=== PATIENT | female | born 1965 | race Caucasian/White ===

== ENCOUNTER → 2016-10-15 | Outpatient (CLI) | payer MEDICARE ==
--- NOTE | 2016-10-16 08:06 | WWHP ---
CHIEF COMPLAINT: Patient is here for her routine gynecologic exam. HPI: This is a 50-year-old G2, P2 with an LMP of 09/16/2016. She is status post tubal ligation. She states she has had very infrequent periods over the last 2 years. Her last prior menstrual period was about 9 months before her LMP. She has not gone for a full 12 months without menses. She has been experiencing hot flashes that are mild for about 4 to 5 months. The patient was found to have varicosity in the inner aspect of the right labia. She states she has not looked at it and it has not caused her any problems. She says her LMP was normal. PAST MEDICAL HISTORY: History of hypertrophic cardiomyopathy with CHF and cardiac arrhythmia, which resulted in the need for cardiac transplant which was done 12/30/2014. Also history of chronic hypertension and pulmonary embolus in the past. MEDICATIONS: 1. Losartan 50 mg b.i.d. 2. Cozaar 1 daily. 3. Ecotrin 81 mg daily. 4. Pravastatin 20 mg daily. 5. Prograf 4 mg p.o. b.i.d. 6. Vitamin C 500 mg b.i.d. 7. Citracal with vitamin D and magnesium 250 mg daily. 8. Ferrous sulfate 325 mg b.i.d. 9. Cardizem CD 120 mg daily. 10. Vitamin E 400 units b.i.d., 11. Magnesium oxide 400 mg daily. 12. Klor-Con 20 mEq daily. ALLERGIES TO PENICILLIN, SULFA, DEMEROL AND CERTAIN ADHESIVE TAPES. PAST SURGICAL HISTORY: Tubal ligation, pacemaker was placed and later removed. A cardiac transplant in 2014. Right breast biopsy 2013, which was benign. Laparotomy for gallbladder problems 2014 and laparotomy for cholecystectomy in 2015. Cold knife conization of the cervix in 1992. 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 She has no history of STDs. SOCIAL HISTORY: She denies tobacco and drug use and previously drank alcohol socially, but stopped drinking alcohol in approximately 2009. She has been since 1989 and is considered disabled. FAMILY HISTORY: Maternal grandfather had CHF. REVIEW OF SYSTEMS: She has gained about 15 pounds over the last year. She denies respiratory, cardiac, or GI problems. PHYSICAL EXAM: Blood pressure 136/97. Height 5 feet 4 inches. Weight 202 pounds. Temperature 98.2, pulse 94. This a well-developed well-nourished white female who is alert and oriented x3 in no acute distress. HEENT is within normal limits. NECK: Supple without mass or thyromegaly. CHEST AND LUNGS: Clear to auscultation. HEART: Regular rate and rhythm. Breasts are without mass or discharge. Axillary exam is negative for adenopathy. BACK: Negative for CVA tenderness. ABDOMEN: Soft, nontender, without palpable masses. There is a well-healed vertical laparotomy scar. PELVIC EXAM: External genitalia appears normal without lesions. Just inside the introitus on the vaginal mucosa approximately at the 8 o'clock position there are findings consistent with her 2016 annual exam. This appears to be small varicosity which measures approximately 8 x 5 mm. They have purplish appearance. They appear benign and they are soft and are nontender. The shape is similar to BB pellets adjacent to each other. They do jorge slightly with pressure but do not completely decompressed. This seems stable from her previous exam. The rest of the vagina appears normal with no lesions. The cervix appears normal. There is no evidence of prolapse and there is no unusual discharge. Bimanual exam: The uterus is midposition, nongravid size and nontender. There are no palpable adnexal masses or tenderness. Rectovaginal exam is negative for mass or tenderness and is negative for occult blood. EXTREMITIES: Nontender. IMPRESSION: 1. A 50-year-old perimenopausal female with oligomenorrhea and mild vasomotor symptoms. 2. Benign-appearing vaginal varicosity just inside the introitus at approximately the 8 o'clock position measuring just under 1 cm. This appears stable from her previous exam. PLAN: 1. Pap smear was deferred, since she had a normal one in 2016. 2. Self breast examination was discussed. 3. Mammogram will be 2017 and a slip was given to patient for this. 4. I have recommended that the patient visualize the varicosity that we have talked about and to feel this so she can examine herself on a regular basis. She was instructed to call if she notices changes. I have recommended that she return for recheck in six months. 5. She will also return in one year for her annual exam.
== END | disposition home or self-care (01) ==

== ENCOUNTER → 2016-10-17 | Outpatient (CLI) | payer MEDICARE ==
[2016-10-17 14:32] LABS: Basophils % (A) 1 %; CH 29.8; CHCM 34.4; Eosinophils # (A) 0.1 k/uL (0-0.7); Eosinophils % (A) 4 %; HCT 40.1 % (34.0-46.0); HDW 2.83; HGB 13.3 gm/dL (11.4-16.0); Luc # (Auto) 0.14; Luc % (Auto) 4; Lymphocytes # (A) 0.8 k/uL (1.0-4.8); Lymphocytes % (A) 22 %; MCH 28.9 pg (25.0-35.0); MCHC 33.2 g/dL (31.0-37.0); Mean Platelet Volume 7.4; Monocytes # (A) 0.4 k/uL (0-1.0); Monocytes % (A) 11 %; Neutrophils # (A) 2.2 k/uL (1.3-7.7); Neutrophils % (A) 59 %; RBC 4.61 m/uL (3.80-5.40); RDW 12.5 % (11.5-15.5); WBC 3.8 k/uL (3.8-10.6)
[2016-10-17 14:50] LABS: Anion Gap 14 mmol/L; Blood Urea Nitrogen 19 mg/dL (7-17); Calcium 9.4 mg/dL (8.4-10.2); Carbon Dioxide 24 mmol/L (22-30); Chloride 105 mmol/L (98-107); Glucose 98 mg/dL (74-99); Non-African American GFR(MDRD) 44 (>60 ml/min/1.73 sqM); Potassium 5.1 mmol/L (3.5-5.1); Sodium 143 mmol/L (137-145)
== END | disposition home or self-care (01) ==
LOC: LABWHC1 13:39
PROVIDERS: ATTEND Internal Medicine
DX: I50.30 Unspecified diastolic (congestive) heart failure (principal); E78.2 Mixed hyperlipidemia; T86.290 Cardiac allograft vasculopathy; T86.23 Heart transplant infection; T86.22 Heart transplant failure; T86.21 Heart transplant rejection; T86.20 Unspecified complication of heart transplant; Z94.1 Heart transplant status
CPT/HCPCS: 36415; 80048; 85025

== ENCOUNTER → 2016-11-18 | Outpatient (CLI) | payer MEDICARE ==
--- NOTE | 2016-11-19 12:04 | MM ---
Reason for exam: screening (asymptomatic). Last mammogram was performed 1 year ago. History: Benign MG stereo VAD BX RT of the right breast, May 31, 2014. Physical Findings: A clinical breast exam by your physician is recommended on an annual basis and results should be correlated with mammographic findings. MG 3D Screening Mammo W/Cad Bilateral CC and MLO view(s) were taken. Prior study comparison: November 14, 2015, bilateral MG 3d diag mammo w/cad [facility]. May 31, 2014, right breast US breast RT. May 16, 2014, bilateral MG screening mammo w CAD. June 29, 2012, CAD bilateral diagnostic mammogram. June 21, 2011, bilateral digital screening mammo w/CAD. The breast tissue is heterogeneously dense. This may lower the sensitivity of mammography. Extensive regional calcification in the right breast unchanged from 05/16/14. No significant changes when compared with prior studies. ASSESSMENT: Negative, BI-RAD 1 RECOMMENDATION: Routine screening mammogram of both breasts in 1 year.
== END | disposition home or self-care (01) ==
LOC: RADMAMWWP 13:59
PROVIDERS: ATTEND Obstetrics & Gynecology
DX: Z12.31 Encounter for screening mammogram for malignant neoplasm of breast (principal)
CPT/HCPCS: 77063; G0202

== ENCOUNTER → 2016-12-11 | Outpatient (CLI) | payer MEDICARE ==
[2016-12-11 10:37] LABS: Basophils # (A) 0.1 k/uL (0-0.2); Basophils % (A) 1 %; CH 29.3; CHCM 33.4; Eosinophils # (A) 0.3 k/uL (0-0.7); Eosinophils % (A) 5 %; HCT 39.9 % (34.0-46.0); HDW 2.72; Luc # (Auto) 0.16; Luc % (Auto) 3; Lymphocytes # (A) 1.3 k/uL (1.0-4.8); Lymphocytes % (A) 21 %; MCH 28.7 pg (25.0-35.0); MCHC 32.5 g/dL (31.0-37.0); MCV 88.1 fL (80.0-100.0); Mean Platelet Volume 7.9; Monocytes # (A) 0.5 k/uL (0-1.0); Monocytes % (A) 8 %; Neutrophils % (A) 64 %; RBC 4.53 m/uL (3.80-5.40); WBC 6.3 k/uL (3.8-10.6); WBC (Perox) 6.76
[2016-12-11 10:51] LABS: Calcium 9.4 mg/dL (8.4-10.2); Potassium 5.3 mmol/L (3.5-5.1)
== END | disposition home or self-care (01) ==
LOC: LABWHC1 09:47
PROVIDERS: ATTEND Internal Medicine
DX: I50.30 Unspecified diastolic (congestive) heart failure (principal); E78.2 Mixed hyperlipidemia; Z94.1 Heart transplant status; T86.21 Heart transplant rejection; T86.22 Heart transplant failure; T86.23 Heart transplant infection; T86.290 Cardiac allograft vasculopathy
CPT/HCPCS: 36415; 80048; 80197; 85025

== ENCOUNTER → 2017-03-07 | Outpatient (CLI) | payer MEDICARE ==
[2017-03-11 07:49] LABS: Mis test requested (Blood) B-type Natriuretic P
== END | disposition home or self-care (01) ==
LOC: LABWHC1 14:55
PROVIDERS: ATTEND Internal Medicine
DX: Z53.9 Procedure and treatment not carried out, unspecified reason (principal)
CPT/HCPCS: 83880

== ENCOUNTER → 2017-05-12 | Outpatient (CLI) | payer MEDICARE ==
[2017-05-12 12:54] LABS: ALT 34 U/L (9-52); AST 27 U/L (14-36); Alkaline Phosphatase 84 U/L (38-126); Anion Gap 11 mmol/L; Blood Urea Nitrogen 22 mg/dL (7-17); Calcium 9.5 mg/dL (8.4-10.2); Carbon Dioxide 24 mmol/L (22-30); Chloride 105 mmol/L (98-107); Creatine Kinase 57 U/L (30-135); Glucose 95 mg/dL (74-99); Magnesium 1.4 mg/dL (1.6-2.3); Non-African American GFR(MDRD) 41 (>60 ml/min/1.73 sqM); Potassium 5.4 mmol/L (3.5-5.1); Sodium 140 mmol/L (137-145); Total Bilirubin 0.6 mg/dL (0.2-1.3); Total Protein 7.4 g/dL (6.3-8.2)
[2017-05-12 13:01] LABS: Basophils # (A) 0.1 k/uL (0-0.2); Basophils % (A) 1 %; CH 29.2; CHCM 33.8; Eosinophils # (A) 0.2 k/uL (0-0.7); Eosinophils % (A) 3 %; HCT 40.9 % (34.0-46.0); HGB 13.7 gm/dL (11.4-16.0); Luc % (Auto) 2; Lymphocytes # (A) 1.2 k/uL (1.0-4.8); Lymphocytes % (A) 22 %; MCHC 33.4 g/dL (31.0-37.0); MCV 86.8 fL (80.0-100.0); Monocytes # (A) 0.4 k/uL (0-1.0); Monocytes % (A) 7 %; Neutrophils # (A) 3.5 k/uL (1.3-7.7); Neutrophils % (A) 66 %; RBC 4.72 m/uL (3.80-5.40); RDW 13.6 % (11.5-15.5); WBC 5.3 k/uL (3.8-10.6); WBC (Perox) 5.75
== END | disposition home or self-care (01) ==
LOC: LABWHC1 12:04
PROVIDERS: ATTEND Internal Medicine
DX: E78.2 Mixed hyperlipidemia (principal); I50.30 Unspecified diastolic (congestive) heart failure; T86.20 Unspecified complication of heart transplant; T86.21 Heart transplant rejection; T86.22 Heart transplant failure; T86.23 Heart transplant infection; T86.290 Cardiac allograft vasculopathy; Z94.1 Heart transplant status
CPT/HCPCS: 36415; 80053; 82550; 83735; 83880; 85025

== ENCOUNTER → 2017-05-16 | Outpatient (CLI) | payer MEDICARE ==
--- NOTE | 2017-05-16 13:44 | US ---
EXAMINATION TYPE: US venous doppler duplex UE RT DATE OF EXAM: 05/16/2017 COMPARISON: NONE CLINICAL HISTORY: Pain in Swelling M79.609. shooting pain right lower arm post blood draw on Friday. SIDE PERFORMED: Right No evidence for Dvt right arm. Grayscale, color doppler, spectral doppler imaging performed of the de ep veins of the upper extremities. There is normal flow, compressibility and vascular waveforms Right Arm: Negative for DVT IMPRESSION: No evidence of deep vein thrombosis within the right upper extremity. .
== END | disposition home or self-care (01) ==
LOC: RADUSWWP 12:54
PROVIDERS: ATTEND Internal Medicine
DX: M79.601 Pain in right arm (principal)

== ENCOUNTER → 2017-07-17 | Outpatient (CLI) | payer MEDICARE ==
[2017-07-17 12:29] LABS: Basophils % (A) 1 %; CH 28.7; CHCM 32.3; Eosinophils # (A) 0.2 k/uL (0-0.7); Eosinophils % (A) 3 %; HCT 41.1 % (34.0-46.0); HDW 2.52; HGB 13.6 gm/dL (11.4-16.0); Luc # (Auto) 0.09; Luc % (Auto) 2; Lymphocytes # (A) 0.9 k/uL (1.0-4.8); Lymphocytes % (A) 18 %; MCH 29.5 pg (25.0-35.0); MCV 89.5 fL (80.0-100.0); Mean Platelet Volume 7.5; Monocytes # (A) 0.4 k/uL (0-1.0); Monocytes % (A) 7 %; Neutrophils # (A) 3.3 k/uL (1.3-7.7); Neutrophils % (A) 69 %; WBC 4.8 k/uL (3.8-10.6); WBC (Perox) 5.32
[2017-07-17 12:49] LABS: ALT 30 U/L (9-52); AST 26 U/L (14-36); Alkaline Phosphatase 73 U/L (38-126); Anion Gap 10 mmol/L; Blood Urea Nitrogen 22 mg/dL (7-17); Calcium 9.5 mg/dL (8.4-10.2); Carbon Dioxide 24 mmol/L (22-30); Chloride 107 mmol/L (98-107); Creatine Kinase 58 U/L (30-135); Glucose 96 mg/dL (74-99); Magnesium 1.4 mg/dL (1.6-2.3); Non-African American GFR(MDRD) 42 (>60 ml/min/1.73 sqM); Potassium 5.5 mmol/L (3.5-5.1); Sodium 141 mmol/L (137-145); Total Bilirubin 0.6 mg/dL (0.2-1.3); Total Protein 7.3 g/dL (6.3-8.2)
[2017-07-21 09:17] LABS: Mis test requested (Blood) BNP
== END | disposition home or self-care (01) ==
LOC: LABWHC1 11:40
PROVIDERS: ATTEND Internal Medicine
DX: E78.2 Mixed hyperlipidemia (principal); I50.30 Unspecified diastolic (congestive) heart failure; T86.21 Heart transplant rejection; T86.22 Heart transplant failure; T86.23 Heart transplant infection; T86.290 Cardiac allograft vasculopathy; Z94.1 Heart transplant status
CPT/HCPCS: 36415; 80053; 82550; 83735; 83880; 85025

== ENCOUNTER 2017-11-07 18:36 | Emergency (ER) | payer MEDICARE ==
[2017-11-07 18:41] VITALS: RESP 16
--- NOTE | 2017-11-07 19:22 | ED ---
General Adult HPI - General Chief complaint: Shortness of Breath Stated complaint: Left side pain Time Seen by Provider: 11/07/17 18:56 Source: patient, family, RN notes reviewed, old records reviewed Mode of arrival: ambulatory Limitations: no limitations - History of Present Illness Initial comments: Chief complaint and history of present illness this is a 51-year-old female here with a complaint of discomfort to her left lower rib cage. She's been coughing quite a bit for the last 10 days. It also hurts to push on the same area. When she takes deep breath it hurts. When she splints the area she can control the pain. Recently the patient was treated with 7 days of azithromycin. She was tested positive for flu be 10 days ago that time she returned had the flu for 4 days so she was put on a Zithromax and 500 mg daily for a week. The patient is a heart transplant patient. Patient denies any fever. She does a productive cough at this time green in color. - Related Data Home Medications Medication Instructions Recorded Confirmed Magnesium Oxide [Mag-Ox] 800 mg PO BID 09/06/14 11/07/17 Ascorbic Acid [Vitamin C] 500 mg PO BID 05/09/15 11/07/17 Aspirin EC [Ecotrin Low Dose] 81 mg PO DAILY 05/09/15 11/07/17 Vitamin E (Dl,Tocopheryl Acet) 400 unit PO BID 05/09/15 11/07/17 [Vitamin E] Losartan [Cozaar] 50 mg PO HS 10/26/15 11/07/17 Tacrolimus [Prograf] 4 mg PO DAILY 10/26/15 11/07/17 Calcium Citrate/Vitamin D3 1 tab PO AC-TID 11/07/17 11/07/17 [Calcitrate + Vit D Caplet] Mycophenolate Mofetil [Cellcept] 500 mg PO BID 11/07/17 11/07/17 Pravastatin Sodium [Pravachol] 20 mg PO HS 11/07/17 11/07/17 Tacrolimus [Prograf] 3 mg PO HS 11/07/17 11/07/17 Allergies Allergy/AdvReac Type Severity Reaction Status Date / Time adhesive Allergy Rash/Hives Verified 11/07/17 19:02 meperidine HCl [From Demerol] Allergy Rash/Hives Verified 11/07/17 19:02 Penicillins Allergy Rash/Hives Verified 11/07/17 19:02 Sulfa (Sulfonamide Allergy Rash/Hives Verified 11/07/17 19:02 Antibiotics) Review of Systems ROS Statement: Those systems with pertinent positive or pertinent negative responses have been documented in the HPI. review of systems no headache or visual acuity changes no neck ache. No shortness of breath except when coughing. Coughing has increased discomfort and appears to be more costochondritis and even pleurisy. She does have a productive cough greenish in color. Denies fever at home. No abdominal pain. No neuro deficits all systems are reviewed.Past medical problems heart disease , DVT, hyperlipidemia, osteoarthritis, pneumonia, PE. Surgeries include heart transplant after multiple procedures on her heart. She's also had cholecystectomy. Family history no cancers. She has ALLERGIES to adhesive, Demerol, penicillins and sulfa. Nonsmoker nondrinker. ROS Other: All systems not noted in ROS Statement are negative. Past Medical History Past Medical History: Chest Pain / Angina, Heart Failure, Deep Vein Thrombosis ( DVT), Hyperlipidemia, Osteoarthritis (OA), Pneumonia, Pulmonary Embolus (PE) Additional Past Medical History / Comment(s): 05-09-15 ADMITTED TO [facility] WITH CHEST PAIN NEAR SYNCOPAL EPISODE.OTHER HX: 1991 HAD OVERACTIVE THYROID TOOK MEDS X1 YEAR THEN DISCONTINUED, , ANEMIA IN PAST, past hx listed mi-pt unaware of this. past afib per old hx before heart transplant, Last Myocardial Infarction Date:: 04/2014 History of Any Multi-Drug Resistant Organisms: None Reported Past Surgical History: Ablation, Cardiac Ablation, Heart Catheterization, Tubal Ligation Additional Past Surgical History / Comment(s): 2008 HAS EP STUDIES,CARDAIC ABLATION 1999, had pacemeaker/defibrilator but that was removed when pt had heart transplant ,CRYOTHERAPY SX FOR HIGH GRADE CELLS (CERVICAL), S/P ICD ; Heart Transplant 12/2014 Past Anesthesia/Blood Transfusion Reactions: Motion Sickness, Postoperative Nausea & Vomiting (PONV) Type of Cardiac Device: Permanent Pacemaker, AICD Device Placement Date:: January 13 2014 Past Psychological History: No Psychological Hx Reported Smoking Status: Never smoker Past Alcohol Use History: None Reported Past Drug Use History: None Reported - Past Family History Father History Unknown: Yes Mother Family Medical History: Deep Vein Thrombosis (DVT) General Exam - General Exam Comments Initial Comments: General: The patient is awake and alert, in no distress, and does not appear acutely ill. here because she has discomfort when she takes a deep breath or cough to her left lower anterior rib cage. She can splint the area and control of discomfort. Vital signs show temperature 98.1 pulse 64 respiratory rate 16 pulse ox 99% room air blood pressure 143/90 Eye: Pupils are equal, round and reactive to light, extra-ocular movements are intact ; there is normal conjunctiva bilaterally. No signs of icterus. Ears, nose, mouth and throat: There are moist mucous membranes and no oral lesions. Neck: The neck is supple, there is no tenderness him a no anterior cervical lymphadenopathy, thyroid not enlarged. Cardiovascular: There is a regular rate and rhythm. No murmur, rub or gallop is appreciated. Respiratory: Lungs are clear to auscultation, respirations are non-labored, breath sounds are equal. No wheezes, stridor, rales, or rhonchi.pain can be increased with coughing. To the left lower anterior chest wall. Palpation over the area causes pain as well. Deep breathing with movement of the chest wall causes discomfort. She can splint the area and the pain can be controlled. No rashes noted we did discuss early shingles. Gastrointestinal: Soft, non-distended, non-tender abdomen without masses or organomegaly noted. There is no rebound or guarding present. No CVA tenderness. Bowel sounds are unremarkable. Back: There is no tenderness to palpation in the midline. There is no obvious deformity. No rashes noted. early shingles was discussed. was instructed to wear to watch for rash. Musculoskeletal: Normal ROM, no tenderness, There is no pedal edema. There is no calf tenderness or swelling. Neurological: no neuro deficits Skin: Skin is warm and dry and no rashes or lesions are noted. Limitations: no limitations Course Vital Signs 11/07/17 18:37 Temperature 98.1 F Pulse Rate 64 Respiratory 16 Rate Blood Pressure 143/90 O2 Sat by Pulse 99 Oximetry Medical Decision Making - Medical Decision Making Medical decision making; a 51-year-old female with complaint of costochondritis possible pleuritic pain. She does have a past history of a heart transplant 3 years ago. Tthe patient was recently tested positive for the flu but she had the symptoms for over 4 days so the Tamiflu was not administered but she was put on a Zithromax and 500 mg daily for 7 days. She's recently finished that. She has had some coughing green phlegm in color. He complains of musculoskeletal discomfort with coughing. Afebrile no other complaints. Labs show white count 6.1 hemoglobin 12 hematocrit of 35 with a potassium 5.2 which is chronically mildly elevated. She's also had chronically poor renal function today her BUN is 44 creatinine 1.6 GFR 34. This is mildly worse than it was several weeks ago. these problems have been chronic. Troponin less than 0.012 S x-ray was done and reviewed radiologist his impression is sternal sutures are noted and mediastinal clips. The cardiac silhouette is not enlarged. The mediastinum pleural silhouettes are unremarkable. The lungs are clear. Pleural spaces are negative. The skeletal structures are intact without focal findings. Soft tissues are unremarkable. Impression no acute process. As read by Dr. Master Mendez appears though the patient has more costochondritis. With chronic renal insufficiency. The patient will be advised to take extra strength Tylenol and splint the area. Advised follow-up with family physician return emergency room as needed. - Lab Data Result diagrams: 11/07/17 19:41 11/07/17 19:41 Lab Results 11/07/17 11/07/17 11/07/17 Range/Units 19:41 19:41 19:41 WBC 6.1 (3.8-10.6) k/uL RBC 4.16 (3.80-5.40) m/uL Hgb 12.2 (11.4-16.0) gm/dL Hct 35.1 (34.0-46.0) % MCV 84.4 (80.0-100.0) fL MCH 29.3 (25.0-35.0) pg MCHC 34.7 (31.0-37.0) g/dL RDW 13.6 (11.5-15.5) % Plt Count 201 (150-450) k/uL Neutrophils % 63 % Lymphocytes % 22 % Monocytes % 8 % Eosinophils % 4 % Basophils % 1 % Neutrophils # 3.8 (1.3-7.7) k/uL Lymphocytes # 1.3 (1.0-4.8) k/uL Monocytes # 0.5 (0-1.0) k/uL Eosinophils # 0.2 (0-0.7) k/uL Basophils # 0.0 (0-0.2) k/uL Sodium 139 (137-145) mmol/L Potassium 5.2 H (3.5-5.1) mmol/L Chloride 105 (98-107) mmol/L Carbon Dioxide 24 (22-30) mmol/L Anion Gap 10 mmol/L BUN 44 H (7-17) mg/dL Creatinine 1.60 H (0.52-1.04) mg/dL Est GFR (MDRD) Af Amer 41 (>60 ml/min/1.73 sqM) Est GFR (MDRD) Non-Af 34 (>60 ml/min/1.73 sqM) Glucose 98 (74-99) mg/dL Calcium 9.5 (8.4-10.2) mg/dL Total Bilirubin 0.4 (0.2-1.3) mg/dL AST 27 (14-36) U/L ALT 25 (9-52) U/L Alkaline Phosphatase 60 (38-126) U/L Troponin I <0.012 (0.000-0.034) ng/mL Total Protein 6.8 (6.3-8.2) g/dL Albumin 4.0 (3.5-5.0) g/dL Disposition Clinical Impression: Costochondritis Disposition: HOME SELF-CARE Condition: Fair Additional Instructions: take extra strength Tylenol for the aches and pains of your chest wall. Use your hand or firm pillow over the area of discomfort to splint the area to prevent discomfort. Follow-up with family physician concerning kidney function. Referrals: Azucena Liang MD [Primary Care Provider] - 1-2 days Time of Disposition: 20:54
--- NOTE | 2017-11-07 19:48 | XR ---
EXAMINATION: XR chest 2V DATE AND TIME: 11/07/2017 7:27 PM ORDERING PROVIDER: Ayan Fulton MD CLINICAL INDICATION: Pain history heart transplant 3 years ago. TECHNIQUE: PA and lateral COMPARISON: 10/26/2015 DESCRIPTION: Sternal sutures noted and mediastinal clips. The cardiac silhouette is not enlarged. The mediastinal and pleural silhouettes are unremarkable. The lungs are clear. The pleural spaces are negative. The skeletal structures are intact without focal findings. The soft tissues are unremarkable. IMPRESSION: NO ACUTE PROCESS.
[2017-11-07 20:01] LABS: Basophils % (A) 1 %; Eosinophils # (A) 0.2 k/uL (0-0.7); Eosinophils % (A) 4 %; HCT 35.1 % (34.0-46.0); HGB 12.2 gm/dL (11.4-16.0); Lymphocytes # (A) 1.3 k/uL (1.0-4.8); Lymphocytes % (A) 22 %; MCH 29.3 pg (25.0-35.0); MCHC 34.7 g/dL (31.0-37.0); MCV 84.4 fL (80.0-100.0); Mean Platelet Volume 8.5; Monocytes # (A) 0.5 k/uL (0-1.0); Monocytes % (A) 8 %; Neutrophils # (A) 3.8 k/uL (1.3-7.7); Neutrophils % (A) 63 %; Platelet Count 201 k/uL (150-450); RBC 4.16 m/uL (3.80-5.40); RDW 13.6 % (11.5-15.5); WBC 6.1 k/uL (3.8-10.6)
[2017-11-07 20:13] LABS: Calcium 9.5 mg/dL (8.4-10.2); Potassium 5.2 mmol/L (3.5-5.1); Total Bilirubin 0.4 mg/dL (0.2-1.3); Total Protein 6.8 g/dL (6.3-8.2)
[2017-11-07 21:27] VITALS: BP 158/102; PULSE 99; TEMP 97.8
== END 2017-11-07 21:26 | disposition home or self-care (01) ==
LOC: EC 18:36
DX: M94.0 Chondrocostal junction syndrome [Tietze] (principal); I50.9 Heart failure, unspecified; E78.5 Hyperlipidemia, unspecified; M19.90 Unspecified osteoarthritis, unspecified site; Z94.1 Heart transplant status; Z98.890 Other specified postprocedural states; Z95.810 Presence of automatic (implantable) cardiac defibrillator; Z88.0 Allergy status to penicillin; Z91.048 Other nonmedicinal substance allergy status; Z88.5 Allergy status to narcotic agent; Z88.2 Allergy status to sulfonamides; Z79.82 Long term (current) use of aspirin; Z79.899 Other long term (current) drug therapy
CPT/HCPCS: 36415; 71046; 80053; 84484; 85025; 99285

== ENCOUNTER → 2017-11-11 | Outpatient (CLI) | payer MEDICARE ==
[2017-11-11 13:23] LABS: Basophils % (A) 1 %; Eosinophils # (A) 0.3 k/uL (0-0.7); Eosinophils % (A) 5 %; HCT 40.2 % (34.0-46.0); HGB 13.3 gm/dL (11.4-16.0); Lymphocytes # (A) 1.1 k/uL (1.0-4.8); Lymphocytes % (A) 20 %; MCH 28.6 pg (25.0-35.0); MCV 86.8 fL (80.0-100.0); Mean Platelet Volume 7.8; Monocytes # (A) 0.4 k/uL (0-1.0); Monocytes % (A) 8 %; Neutrophils # (A) 3.5 k/uL (1.3-7.7); Neutrophils % (A) 65 %; Platelet Count 215 k/uL (150-450); RBC 4.63 m/uL (3.80-5.40); WBC 5.4 k/uL (3.8-10.6)
[2017-11-11 13:43] LABS: Albumin 4.4 g/dL (3.5-5.0); Calcium 10.1 mg/dL (8.4-10.2); Magnesium 1.7 mg/dL (1.6-2.3); Potassium 5.5 mmol/L (3.5-5.1); Total Bilirubin 0.5 mg/dL (0.2-1.3); Total Protein 7.3 g/dL (6.3-8.2)
== END | disposition home or self-care (01) ==
LOC: LABWHC1 12:37
PROVIDERS: ATTEND Internal Medicine
DX: E78.2 Mixed hyperlipidemia (principal); I50.30 Unspecified diastolic (congestive) heart failure; T86.20 Unspecified complication of heart transplant; T86.21 Heart transplant rejection; T86.22 Heart transplant failure; T86.23 Heart transplant infection; T86.290 Cardiac allograft vasculopathy
CPT/HCPCS: 36415; 80053; 82550; 83735; 83880; 85025

== ENCOUNTER → 2017-12-03 | Outpatient (CLI) | payer MEDICARE ==
[2017-12-03 12:40] LABS: Basophils % (A) 1 %; Eosinophils # (A) 0.2 k/uL (0-0.7); Eosinophils % (A) 3 %; HGB 13.5 gm/dL (11.4-16.0); Lymphocytes # (A) 0.9 k/uL (1.0-4.8); Lymphocytes % (A) 19 %; MCH 28.1 pg (25.0-35.0); MCHC 32.2 g/dL (31.0-37.0); MCV 87.3 fL (80.0-100.0); Monocytes # (A) 0.6 k/uL (0-1.0); Monocytes % (A) 12 %; Neutrophils # (A) 2.9 k/uL (1.3-7.7); Neutrophils % (A) 62 %; Platelet Count 196 k/uL (150-450); RBC 4.81 m/uL (3.80-5.40); WBC 4.7 k/uL (3.8-10.6)
[2017-12-03 12:56] LABS: Albumin 4.6 g/dL (3.5-5.0); Calcium 10.2 mg/dL (8.4-10.2); Magnesium 1.5 mg/dL (1.6-2.3); Potassium 4.3 mmol/L (3.5-5.1); Total Bilirubin 0.4 mg/dL (0.2-1.3); Total Protein 7.7 g/dL (6.3-8.2)
== END | disposition home or self-care (01) ==
LOC: LABWHC1 11:49
PROVIDERS: ATTEND Internal Medicine
DX: E78.2 Mixed hyperlipidemia (principal); T86.20 Unspecified complication of heart transplant; T86.21 Heart transplant rejection; T86.22 Heart transplant failure; T86.23 Heart transplant infection; T86.290 Cardiac allograft vasculopathy; I50.30 Unspecified diastolic (congestive) heart failure
CPT/HCPCS: 36415; 80053; 82550; 83735; 83880; 85025

== ENCOUNTER → 2017-12-15 | Outpatient (CLI) | payer MEDICARE ==
[2017-12-15 12:33] LABS: Basophils % (A) 1 %; Eosinophils # (A) 0.4 k/uL (0-0.7); Eosinophils % (A) 5 %; HCT 38.9 % (34.0-46.0); HGB 12.6 gm/dL (11.4-16.0); Lymphocytes # (A) 1.1 k/uL (1.0-4.8); Lymphocytes % (A) 14 %; MCHC 32.5 g/dL (31.0-37.0); Mean Platelet Volume 7.9; Monocytes # (A) 0.5 k/uL (0-1.0); Monocytes % (A) 7 %; Neutrophils # (A) 5.5 k/uL (1.3-7.7); Neutrophils % (A) 72 %; Platelet Count 199 k/uL (150-450); RBC 4.52 m/uL (3.80-5.40); RDW 13.2 % (11.5-15.5); WBC 7.6 k/uL (3.8-10.6)
[2017-12-15 12:42] LABS: Albumin 4.3 g/dL (3.5-5.0); Calcium 9.8 mg/dL (8.4-10.2); Potassium 4.9 mmol/L (3.5-5.1); Total Bilirubin 0.6 mg/dL (0.2-1.3); Total Protein 7.3 g/dL (6.3-8.2)
== END | disposition home or self-care (01) ==
LOC: LABWHC1 11:54
PROVIDERS: ATTEND Internal Medicine
DX: E78.2 Mixed hyperlipidemia (principal); I50.30 Unspecified diastolic (congestive) heart failure; T86.20 Unspecified complication of heart transplant; T86.21 Heart transplant rejection; T86.22 Heart transplant failure; T86.23 Heart transplant infection; T86.290 Cardiac allograft vasculopathy
CPT/HCPCS: 36415; 80053; 82550; 83735; 83880; 85025

== ENCOUNTER → 2017-12-23 | Outpatient (CLI) | payer MEDICARE ==
[2017-12-23 14:22] VITALS: BP 118/72; PULSE 60; RESP 18; TEMP 98; BMI 35.2
--- NOTE | 2017-12-23 15:19 | P.HPOB ---
History of Present Illness H&P Date: 12/23/17 Chief Complaint: The patient is here for her routine gynecologic exam and mammogram. This is a 51-year-old with an LMP of 09/21/17. She is status post tubal sterilization. Patient states or periods have been less frequent during the past 3 years and they are becoming more infrequent. She has been experiencing some hot flashes but they are tolerable. She is otherwise without complaints. Review of Systems She denies respiratory, cardiac, or G.I. problems. Past Medical History Past Medical History: Chest Pain / Angina, Heart Failure, Deep Vein Thrombosis ( DVT), Hyperlipidemia, Osteoarthritis (OA), Pneumonia, Pulmonary Embolus (PE) Additional Past Medical History / Comment(s): 05-09-15 ADMITTED TO [facility] WITH CHEST PAIN NEAR SYNCOPAL EPISODE.OTHER HX: 1991 HAD OVERACTIVE THYROID TOOK MEDS X1 YEAR THEN DISCONTINUED, , ANEMIA IN PAST, past hx listed mi-pt unaware of this. past afib per old hx before heart transplant, Last Myocardial Infarction Date:: 04/2014 History of Any Multi-Drug Resistant Organisms: None Reported, MRSA Date of last positivie culture/infection: 01/2015 MDRO Source:: pacemaker Past Surgical History: Ablation, Cardiac Ablation, Heart Catheterization, Tubal Ligation Additional Past Surgical History / Comment(s): 2008 HAS EP STUDIES,CARDAIC ABLATION 1999, had pacemeaker/defibrilator but that was removed when pt had heart transplant ,CRYOTHERAPY SX FOR HIGH GRADE CELLS (CERVICAL), S/P ICD ; Heart Transplant 12/2014 Past Anesthesia/Blood Transfusion Reactions: Motion Sickness, Postoperative Nausea & Vomiting (PONV) Type of Cardiac Device: Permanent Pacemaker, AICD Device Placement Date:: January 13 2014 Past Psychological History: No Psychological Hx Reported Smoking Status: Never smoker Past Alcohol Use History: None Reported Past Drug Use History: None Reported - Past Family History Father History Unknown: Yes Mother Family Medical History: Deep Vein Thrombosis (DVT), Hypertension Medications and Allergies Home Medications Medication Instructions Recorded Confirmed Type Magnesium Oxide [Mag-Ox] 800 mg PO BID 09/06/14 12/23/17 History Ascorbic Acid [Vitamin C] 500 mg PO BID 05/09/15 12/23/17 History Aspirin EC [Ecotrin Low Dose] 81 mg PO DAILY 05/09/15 12/23/17 History Vitamin E (Dl,Tocopheryl Acet) 400 unit PO BID 05/09/15 12/23/17 History [Vitamin E] Tacrolimus [Prograf] 4 mg PO DAILY 10/26/15 12/23/17 History Calcium Citrate/Vitamin D3 1 tab PO AC-TID 11/07/17 12/23/17 History [Calcitrate + Vit D Caplet] Pravastatin Sodium [Pravachol] 20 mg PO HS 11/07/17 12/23/17 History Tacrolimus [Prograf] 3 mg PO HS 11/07/17 12/23/17 History Allergies Allergy/AdvReac Type Severity Reaction Status Date / Time adhesive Allergy Rash/Hives Verified 11/07/17 19:02 meperidine HCl [From Demerol] Allergy Rash/Hives Verified 11/07/17 19:02 Penicillins Allergy Rash/Hives Verified 11/07/17 19:02 Sulfa (Sulfonamide Allergy Rash/Hives Verified 11/07/17 19:02 Antibiotics) Exam - Vital Signs Vital signs: Vital Signs Temp Pulse Resp BP 12/23/17 14:15 98 F 60 18 118/72 Intake and Output 12/23/17 12/23/17 12/23/17 06:59 14:59 22:59 Other: Weight 92.986 kg Patient Weight 12/24/17 06:59 Weight 92.986 kg This is a well-developed well-nourished white female who is alert and oriented times 3 in no acute distress. BMI 35. HEENT: Within normal limits. NECK: Supple without mass or thyromegaly. CHEST AND LUNGS: Clear to auscultation. HEART: Regular rate and rhythm. BREASTS: Are without mass or discharge. AXILLARY EXAM: Negative for adenopathy. BACK: Negative for CVA tenderness. ABDOMEN: Soft, nontender, without palpable masses. PELVIC EXAM: Normal external genitalia . Cervix and vagina appear normal . There is no unusual discharge. There is no evidence of prolapse. The uterus is midposition, nongravid size and nontender. There are no palpable adnexal masses or tenderness. RECTAL EXAM: rectovaginal exam is negative for mass or tenderness and is negative for occult blood. EXTREMITIES: Nontender. IMPRESSION: 1. 51-year-old perimenopausal female with increasing oligomenorrhea and vasomotor symptoms. Normal gynecologic exam. 2. Multiple medical problems including history of heart failure status post cardiac transplant. PLAN: 1. Pap smear was performed. 2. Breast examination was discussed. 3. Screening mammogram will be done today. 4. Osteoporosis prevention was discussed. 5. I have recommended screening colonoscopy. She will discuss this with her primary care physician. 6. She will return one year.
--- NOTE | 2017-12-24 13:46 | MM ---
Reason for exam: screening (asymptomatic). Last mammogram was performed 1 year and 1 month ago. History: Benign MG stereo VAD BX RT of the right breast, May 31, 2014. Physical Findings: A clinical breast exam by your physician is recommended on an annual basis and results should be correlated with mammographic findings. MG Screening Mammo w CAD Bilateral CC and MLO view(s) were taken. Prior study comparison: November 18, 2016, bilateral MG 3d screening mammo w/cad. November 14, 2015, bilateral MG 3d diag mammo w/cad HARESH. The breast tissue is heterogeneously dense. This may lower the sensitivity of mammography. Previous mammotome biopsy in the right breast with adjacent regional calcifications, stable. There is chronic nodularity in the left breast superiorly. No significant changes when compared with prior studies. ASSESSMENT: Benign, BI-RAD 2 RECOMMENDATION: Routine screening mammogram of both breasts in 1 year.
== END | disposition home or self-care (01) ==
LOC: WWCWWP 13:55
PROVIDERS: ATTEND Obstetrics & Gynecology
DX: Z12.31 Encounter for screening mammogram for malignant neoplasm of breast (principal)
CPT/HCPCS: 77067

== ENCOUNTER → 2017-12-29 | Outpatient (CLI) | payer MEDICARE ==
[2017-12-29 12:56] LABS: Basophils # (A) 0.1 k/uL (0-0.2); Basophils % (A) 1 %; Eosinophils # (A) 0.3 k/uL (0-0.7); Eosinophils % (A) 6 %; HCT 39.8 % (34.0-46.0); HGB 13.3 gm/dL (11.4-16.0); Lymphocytes # (A) 1.2 k/uL (1.0-4.8); Lymphocytes % (A) 21 %; MCH 28.6 pg (25.0-35.0); MCHC 33.3 g/dL (31.0-37.0); MCV 85.8 fL (80.0-100.0); Mean Platelet Volume 7.1; Monocytes # (A) 0.3 k/uL (0-1.0); Monocytes % (A) 6 %; Neutrophils # (A) 3.6 k/uL (1.3-7.7); Neutrophils % (A) 64 %; Platelet Count 229 k/uL (150-450); RBC 4.64 m/uL (3.80-5.40); WBC 5.6 k/uL (3.8-10.6)
[2017-12-29 13:06] LABS: Calcium 9.7 mg/dL (8.4-10.2); Potassium 4.9 mmol/L (3.5-5.1)
== END | disposition home or self-care (01) ==
LOC: LABWHC1 12:01
PROVIDERS: ATTEND Internal Medicine
DX: E78.2 Mixed hyperlipidemia (principal); I50.30 Unspecified diastolic (congestive) heart failure; T86.290 Cardiac allograft vasculopathy; T86.23 Heart transplant infection; T86.22 Heart transplant failure; T86.21 Heart transplant rejection; T86.20 Unspecified complication of heart transplant
CPT/HCPCS: 36415; 80048; 85025

== ENCOUNTER → 2018-02-25 | Outpatient (CLI) | payer MEDICARE ==
--- NOTE | 2018-02-25 12:01 | XR ---
EXAMINATION TYPE: XR shoulder complete LT DATE OF EXAM: 02/25/2018 COMPARISON: NONE HISTORY: 52 year-old female left shoulder pain TECHNIQUE: 3 views FINDINGS: Minimal marginal spurring at the AC joint. AC joint appears congruent. Subacromial space is preserved . No tendinous or bursal calcifications. Delineation to the greater tuberosity. No acute fracture, zhu bluxation, or dislocation. Median sternotomy wires. IMPRESSION: Minimal degenerative spurring at the AC joint. No acute osseous abnormality seen.
== END | disposition home or self-care (01) ==
LOC: RADXRMAIN 10:37
PROVIDERS: ATTEND Internal Medicine
DX: M75.92 Shoulder lesion, unspecified, left shoulder (principal)

== ENCOUNTER → 2018-02-25 | Outpatient (CLI) | payer MEDICARE ==
[2018-02-25 11:43] LABS: Basophils % (A) 1 %; Eosinophils # (A) 0.4 k/uL (0-0.7); Eosinophils % (A) 7 %; HCT 39.9 % (34.0-46.0); HGB 13.4 gm/dL (11.4-16.0); Lymphocytes % (A) 21 %; MCH 28.7 pg (25.0-35.0); MCHC 33.5 g/dL (31.0-37.0); MCV 85.7 fL (80.0-100.0); Mean Platelet Volume 7.1; Monocytes # (A) 0.3 k/uL (0-1.0); Monocytes % (A) 6 %; Neutrophils # (A) 3.1 k/uL (1.3-7.7); Neutrophils % (A) 63 %; Platelet Count 196 k/uL (150-450); RBC 4.66 m/uL (3.80-5.40); RDW 13.3 % (11.5-15.5); WBC 4.9 k/uL (3.8-10.6)
[2018-02-25 11:46] LABS: Appearance,Urine Cloudy (Clear); Bacteria,Urine Rare /hpf; Bilirubin,Urine Negative (Negative); Blood,Urine Negative (Negative); Calcium Oxalate Crystals,Urine Many /hpf; Color,Urine Yellow; Glucose,Urine (UA) Negative (Negative); Hyaline Casts,Urine 22 /lpf (0-2); Ketones,Urine Negative (Negative); Leukocyte Esterase,Urine Large (Negative); Mucus,Urine Occasional /hpf; Nitrite,Urine Negative (Negative); Protein,Urine 1+ (Negative); RBC,Urine 2 /hpf (0-5); Specific Gravity,Urine 1.026 (1.001-1.035); Squamous Epithelial Cell,Urine 28 /hpf (0-4); WBC,Urine 16 /hpf (0-5)
[2018-02-25 11:52] LABS: Albumin 4.4 g/dL (3.5-5.0); Magnesium 1.5 mg/dL (1.6-2.3); Potassium 5.7 mmol/L (3.5-5.1); Total Bilirubin 0.5 mg/dL (0.2-1.3); Total Protein 7.3 g/dL (6.3-8.2); Uric Acid 5.9 mg/dL (3.7-7.4)
[2018-02-25 12:06] LABS: T4, Free (Free Thyroxine) 0.92 ng/dL (0.78-2.19)
[2018-02-25 16:48] LABS: Iron Saturation 23.08 (12.00-45.00)
[2018-02-25 18:51] LABS: Hemoglobin A1C 5.3 % (4.0-6.0)
== END ==
LOC: LABWHC1 10:34
PROVIDERS: ATTEND Internal Medicine
DX: Z00.00 Encounter for general adult medical examination without abnormal findings (principal); D50.9 Iron deficiency anemia, unspecified; E78.2 Mixed hyperlipidemia; I50.30 Unspecified diastolic (congestive) heart failure; I11.0 Hypertensive heart disease with heart failure; T86.20 Unspecified complication of heart transplant; T86.21 Heart transplant rejection; T86.22 Heart transplant failure; T86.23 Heart transplant infection; T86.290 Cardiac allograft vasculopathy
CPT/HCPCS: 36415; 80053; 80061; 81001; 82550; 82728; 83036; 83540; 83550; 83735; 83880; 84439; 84443; 84550; 85025

== ENCOUNTER → 2018-03-23 | Outpatient (CLI) | payer MEDICARE ==
[2018-03-23 12:25] LABS: HCT 38.3 % (34.0-46.0); HGB 13.1 gm/dL (11.4-16.0); MCH 29.5 pg (25.0-35.0); MCHC 34.1 g/dL (31.0-37.0); MCV 86.3 fL (80.0-100.0); Mean Platelet Volume 7.5; Platelet Count 189 k/uL (150-450); RBC 4.44 m/uL (3.80-5.40); RDW 13.7 % (11.5-15.5); WBC 4.5 k/uL (3.8-10.6)
[2018-03-23 12:29] LABS: INR 1.2 (<1.2); Prothrombin Time 11.2 sec (9.0-12.0)
[2018-03-23 12:54] LABS: Calcium 9.5 mg/dL (8.4-10.2); Potassium 5.5 mmol/L (3.5-5.1)
== END | disposition home or self-care (01) ==
LOC: LABWHC1 11:39
PROVIDERS: ATTEND Internal Medicine
DX: Z01.812 Encounter for preprocedural laboratory examination (principal); I25.10 Atherosclerotic heart disease of native coronary artery without angina pectoris
CPT/HCPCS: 36415; 80048; 85027; 85610

== ENCOUNTER → 2018-04-03 | Outpatient (CLI) | payer MEDICARE | END | disposition home or self-care (01) | LOC: LABWHC1 12:16 | PROVIDERS: ATTEND Internal Medicine | DX: I50.30 Unspecified diastolic (congestive) heart failure (principal); E78.2 Mixed hyperlipidemia; T86.290 Cardiac allograft vasculopathy; T86.20 Unspecified complication of heart transplant; T86.21 Heart transplant rejection; T86.22 Heart transplant failure; T86.23 Heart transplant infection | CPT/HCPCS: 36415; 83655 ==

== ENCOUNTER → 2018-05-04 | Outpatient (CLI) | payer MEDICARE ==
[2018-05-04 12:12] LABS: Basophils % (A) 1 %; Eosinophils # (A) 0.4 k/uL (0-0.7); Eosinophils % (A) 7 %; HCT 38.8 % (34.0-46.0); HGB 12.9 gm/dL (11.4-16.0); Lymphocytes # (A) 1.2 k/uL (1.0-4.8); Lymphocytes % (A) 24 %; MCH 28.1 pg (25.0-35.0); MCHC 33.3 g/dL (31.0-37.0); MCV 84.4 fL (80.0-100.0); Mean Platelet Volume 7.5; Monocytes # (A) 0.4 k/uL (0-1.0); Monocytes % (A) 7 %; Neutrophils % (A) 60 %; Platelet Count 190 k/uL (150-450); RDW 13.3 % (11.5-15.5); WBC 5.1 k/uL (3.8-10.6)
[2018-05-04 12:29] LABS: Albumin 4.4 g/dL (3.5-5.0); Calcium 9.7 mg/dL (8.4-10.2); Magnesium 1.6 mg/dL (1.6-2.3); Potassium 5.5 mmol/L (3.5-5.1); Total Bilirubin 0.5 mg/dL (0.2-1.3); Total Protein 7.3 g/dL (6.3-8.2)
== END | disposition home or self-care (01) ==
LOC: LABWHC1 11:20
PROVIDERS: ATTEND Internal Medicine
DX: E78.2 Mixed hyperlipidemia (principal); I50.30 Unspecified diastolic (congestive) heart failure; T86.20 Unspecified complication of heart transplant; T86.21 Heart transplant rejection; T86.23 Heart transplant infection; T86.290 Cardiac allograft vasculopathy; Z94.1 Heart transplant status
CPT/HCPCS: 36415; 80053; 82550; 83735; 83880; 85025

== ENCOUNTER → 2018-06-17 | Outpatient (CLI) | payer MEDICARE ==
[2018-06-17 11:14] LABS: Appearance,Urine Cloudy (Clear); Bacteria,Urine Occasional /hpf; Bilirubin,Urine Negative (Negative); Blood,Urine Negative (Negative); Color,Urine Yellow; Glucose,Urine (UA) Negative (Negative); Hyaline Casts,Urine 18 /lpf (0-2); Ketones,Urine Negative (Negative); Leukocyte Esterase,Urine Negative (Negative); Mucus,Urine Occasional /hpf; Nitrite,Urine Negative (Negative); PH, Urine 5.5 (5.0-8.0); Protein,Urine Trace (Negative); Specific Gravity,Urine 1.017 (1.001-1.035); Squamous Epithelial Cell,Urine 22 /hpf (0-4); Urobilinogen,Urine <2.0 mg/dL (<2.0)
[2018-06-17 11:24] LABS: Basophils % (A) 1 %; Eosinophils # (A) 0.4 k/uL (0-0.7); Eosinophils % (A) 9 %; HCT 36.9 % (34.0-46.0); Lymphocytes % (A) 21 %; MCH 28.4 pg (25.0-35.0); MCHC 32.5 g/dL (31.0-37.0); MCV 87.3 fL (80.0-100.0); Mean Platelet Volume 7.7; Monocytes # (A) 0.3 k/uL (0-1.0); Monocytes % (A) 6 %; Neutrophils # (A) 2.8 k/uL (1.3-7.7); Neutrophils % (A) 61 %; Platelet Count 197 k/uL (150-450); RBC 4.22 m/uL (3.80-5.40); RDW 13.7 % (11.5-15.5); WBC 4.7 k/uL (3.8-10.6)
[2018-06-17 11:46] LABS: Albumin 3.9 g/dL (3.5-5.0); Calcium 9.1 mg/dL (8.4-10.2); Magnesium 1.4 mg/dL (1.6-2.3); Total Bilirubin 0.6 mg/dL (0.2-1.3); Total Protein 6.6 g/dL (6.3-8.2)
== END | disposition home or self-care (01) ==
LOC: LABWHC1 10:07
PROVIDERS: ATTEND Internal Medicine
DX: E78.2 Mixed hyperlipidemia (principal); I50.30 Unspecified diastolic (congestive) heart failure; T86.20 Unspecified complication of heart transplant; T86.21 Heart transplant rejection; T86.23 Heart transplant infection; T86.290 Cardiac allograft vasculopathy
CPT/HCPCS: 36415; 80053; 81001; 82550; 83735; 83880; 85025

== ENCOUNTER → 2018-08-25 | Outpatient (CLI) | payer MEDICARE ==
[2018-08-25 12:04] LABS: Basophils # (A) 0.1 k/uL (0-0.2); Basophils % (A) 1 %; Eosinophils # (A) 0.3 k/uL (0-0.7); Eosinophils % (A) 6 %; HCT 42.1 % (34.0-46.0); HGB 13.3 gm/dL (11.4-16.0); Lymphocytes # (A) 1.2 k/uL (1.0-4.8); Lymphocytes % (A) 21 %; MCH 27.3 pg (25.0-35.0); MCHC 31.6 g/dL (31.0-37.0); MCV 86.5 fL (80.0-100.0); Mean Platelet Volume 7.4; Monocytes # (A) 0.4 k/uL (0-1.0); Monocytes % (A) 7 %; Neutrophils # (A) 3.5 k/uL (1.3-7.7); Neutrophils % (A) 63 %; Platelet Count 233 k/uL (150-450); RBC 4.87 m/uL (3.80-5.40); RDW 13.2 % (11.5-15.5); WBC 5.6 k/uL (3.8-10.6)
[2018-08-25 19:54] LABS: Albumin 4.5 g/dL (3.80-4.90); Albumin/Globulin Ratio 1.96 (1.20-2.10); Anion Gap 8.5 mmol/L (4.00-12.00); Calcium 9.6 mg/dL (8.7-10.3); Carbon Dioxide 24.5 mmol/L (21.6-31.8); Globulin 2.3 g/dL (2.1-3.7); Magnesium 1.8 mg/dL (1.5-2.4); Potassium 5.5 mmol/L (3.5-5.5); Total Bilirubin 0.5 mg/dL (0.2-1.2); Total Protein 6.8 g/dL (6.2-8.2)
== END | disposition home or self-care (01) ==
LOC: LABWHC1 11:08
PROVIDERS: ATTEND Internal Medicine
DX: I50.30 Unspecified diastolic (congestive) heart failure (principal); T86.20 Unspecified complication of heart transplant; T86.22 Heart transplant failure; T86.23 Heart transplant infection; T86.290 Cardiac allograft vasculopathy; E78.2 Mixed hyperlipidemia; T86.21 Heart transplant rejection
CPT/HCPCS: 36415; 80053; 82550; 83735; 85025

== ENCOUNTER → 2018-11-25 | Outpatient (CLI) | payer MEDICARE ==
[2018-11-25 11:31] LABS: Basophils % (A) 1 %; Eosinophils # (A) 0.7 k/uL (0-0.7); Eosinophils % (A) 12 %; HCT 39.4 % (34.0-46.0); HGB 12.6 gm/dL (11.4-16.0); Lymphocytes # (A) 1.2 k/uL (1.0-4.8); Lymphocytes % (A) 22 %; MCH 27.8 pg (25.0-35.0); MCHC 32.1 g/dL (31.0-37.0); MCV 86.7 fL (80.0-100.0); Mean Platelet Volume 6.9; Monocytes # (A) 0.4 k/uL (0-1.0); Monocytes % (A) 7 %; Neutrophils # (A) 2.9 k/uL (1.3-7.7); Neutrophils % (A) 56 %; Platelet Count 205 k/uL (150-450); RBC 4.55 m/uL (3.80-5.40); RDW 13.6 % (11.5-15.5); WBC 5.3 k/uL (3.8-10.6)
[2018-11-25 15:53] LABS: Anion Gap 8.3 mmol/L (4.00-12.00); Calcium 9.7 mg/dL (8.7-10.3); Carbon Dioxide 24.7 mmol/L (21.6-31.8); Potassium 5.6 mmol/L (3.5-5.5)
== END | disposition home or self-care (01) ==
LOC: LABWHC1 10:32
PROVIDERS: ATTEND Internal Medicine
DX: T86.21 Heart transplant rejection (principal); T86.22 Heart transplant failure; T86.23 Heart transplant infection; T86.290 Cardiac allograft vasculopathy; E78.2 Mixed hyperlipidemia; I50.30 Unspecified diastolic (congestive) heart failure
CPT/HCPCS: 36415; 80048; 85025

== ENCOUNTER → 2018-12-02 | Outpatient (CLI) | payer MEDICARE ==
[2018-12-02 23:22] LABS: Anion Gap 7.1 mmol/L (4.00-12.00); Calcium 9.3 mg/dL (8.7-10.3); Carbon Dioxide 23.9 mmol/L (21.6-31.8)
== END ==
LOC: LABWHC1 15:38
PROVIDERS: ATTEND Internal Medicine
DX: T86.20 Unspecified complication of heart transplant (principal); T86.21 Heart transplant rejection; T86.22 Heart transplant failure; T86.23 Heart transplant infection; T86.290 Cardiac allograft vasculopathy; E78.2 Mixed hyperlipidemia; I50.30 Unspecified diastolic (congestive) heart failure; Z94.1 Heart transplant status
CPT/HCPCS: 36415; 80048

== ENCOUNTER 2018-12-07 13:02 | Emergency (ER) | payer MEDICARE ==
[2018-12-07] MEDS ORDERED: ONDANSETRON 4 MG/2 ML VIAL IVP STA (14:42)
[2018-12-07] MEDS ORDERED: MORPHINE SULFATE 4 MG/ML SYRINGE IV STA (14:42)
[2018-12-07] MEDS ORDERED: SODIUM CHLORIDE 0.9% 500 ML 500 ML IV STA (14:42)
--- NOTE | 2018-12-07 14:58 | ED ---
Abdominal Pain HPI - General Source: patient, RN notes reviewed Mode of arrival: ambulatory Limitations: no limitations <Tony Brooks - Last Filed: 12/07/18 16:28> <Trung Ruelas - Last Filed: 12/07/18 17:11> - General Chief Complaint: Abdominal Pain Stated Complaint: Hip and back pain, hypertension Time Seen by Provider: 12/07/18 14:15 - History of Present Illness Initial Comments: 52-year-old female presents emergency Department chief complaint of right flank pain. Patient states that this pain started last couple days has worsened. Patient states that it wraps around from her right back to her right lower abdomen. She has had a prior cholecystectomy. Patient denies any current chest pain or shortness of breath. She has no cerebellar blood pressure has been elevated though may be related to her pain. Patient denies any current dysuria, hematuria, diarrhea, constipation, melena hematochezia. (Tony Brooks) - Related Data Home Medications Medication Instructions Recorded Confirmed Magnesium Oxide [Mag-Ox] 800 mg PO BID 09/06/14 12/07/18 Ascorbic Acid [Vitamin C] 500 mg PO BID 05/09/15 12/07/18 Aspirin EC [Ecotrin Low Dose] 81 mg PO DAILY 05/09/15 12/07/18 Vitamin E (Dl,Tocopheryl Acet) 400 unit PO BID 05/09/15 12/07/18 [Vitamin E] Tacrolimus [Prograf] 3 mg PO DAILY 10/26/15 12/07/18 Calcium Citrate/Vitamin D3 1 tab PO TID-W/MEALS 11/07/17 12/07/18 [Calcitrate + Vit D Caplet] Pravastatin Sodium [Pravachol] 20 mg PO HS 11/07/17 12/07/18 Tacrolimus [Prograf] 4 mg PO HS 11/07/17 12/07/18 Carvedilol [Coreg] 3.125 mg PO BID 12/07/18 12/07/18 Losartan Potassium 100 mg PO HS 12/07/18 12/07/18 Mycophenolate Mofetil [Cellcept] 500 mg PO BID 12/07/18 12/07/18 Allergies Allergy/AdvReac Type Severity Reaction Status Date / Time adhesive Allergy Rash/Hives Verified 12/07/18 14:34 meperidine HCl [From Demerol] Allergy Rash/Hives Verified 12/07/18 14:34 Penicillins Allergy Rash/Hives Verified 12/07/18 14:34 Sulfa (Sulfonamide Allergy Rash/Hives Verified 12/07/18 14:34 Antibiotics) Review of Systems ROS Other: All systems not noted in ROS Statement are negative. <Tony Brooks - Last Filed: 12/07/18 16:28> ROS Other: All systems not noted in ROS Statement are negative. <Trung Ruelas - Last Filed: 12/07/18 17:11> ROS Statement: Those systems with pertinent positive or pertinent negative responses have been documented in the HPI. Past Medical History Past Medical History: Chest Pain / Angina, Heart Failure, Deep Vein Thrombosis ( DVT), Hyperlipidemia, Osteoarthritis (OA), Pneumonia, Pulmonary Embolus (PE) Additional Past Medical History / Comment(s): 05-09-15 ADMITTED TO [facility] WITH CHEST PAIN NEAR SYNCOPAL EPISODE.OTHER HX: 1991 HAD OVERACTIVE THYROID TOOK MEDS X1 YEAR THEN DISCONTINUED, , ANEMIA IN PAST, past hx listed mi-pt unaware of this. past afib per old hx before heart transplant, Last Myocardial Infarction Date:: 04/2014 History of Any Multi-Drug Resistant Organisms: None Reported, MRSA Date of last positivie culture/infection: 01/2015 MDRO Source:: pacemaker Past Surgical History: Ablation, Cardiac Ablation, Heart Catheterization, Tubal Ligation Additional Past Surgical History / Comment(s): 2007 HAS EP STUDIES,CARDAIC ABLATION 1999, had pacemeaker/defibrilator but that was removed when pt had heart transplant -2014 ,CRYOTHERAPY SX FOR HIGH GRADE CELLS (CERVICAL), S/P ICD ; Heart Transplant 12/2014 Past Anesthesia/Blood Transfusion Reactions: Motion Sickness, Postoperative Nausea & Vomiting (PONV) Type of Cardiac Device: Permanent Pacemaker, AICD Device Placement Date:: January 13 2014 Past Psychological History: No Psychological Hx Reported Smoking Status: Never smoker Past Alcohol Use History: None Reported Past Drug Use History: None Reported - Past Family History Father History Unknown: Yes Mother Family Medical History: Deep Vein Thrombosis (DVT), Hypertension <Tony Brooks - Last Filed: 12/07/18 16:28> General Exam Limitations: no limitations General appearance: alert, in no apparent distress Head exam: Present: atraumatic, normocephalic, normal inspection Eye exam: Present: normal appearance, PERRL, EOMI. Absent: scleral icterus, conjunctival injection, periorbital swelling ENT exam: Present: normal exam, normal oropharynx, mucous membranes moist Neck exam: Present: normal inspection. Absent: tenderness, meningismus, lymphadenopathy Respiratory exam: Present: normal lung sounds bilaterally. Absent: respiratory distress, wheezes, rales, rhonchi, stridor Cardiovascular Exam: Present: regular rate, normal rhythm, normal heart sounds. Absent: systolic murmur, diastolic murmur, rubs, gallop, clicks GI/Abdominal exam: Present: soft, tenderness (Moderate right-sided), normal bowel sounds. Absent: distended, guarding, rebound, rigid Back exam: Present: CVA tenderness (R). Absent: CVA tenderness (L) Neurological exam: Present: alert, oriented X3, CN II-XII intact Skin exam: Present: warm, dry, intact, normal color. Absent: rash <Tony Brooks - Last Filed: 12/07/18 16:28> Vital Signs 12/07/18 13:38 Temperature 98.5 F Pulse Rate 66 Respiratory 22 Rate Blood Pressure 163/98 O2 Sat by Pulse 98 Oximetry Medical Decision Making - Lab Data Result diagrams: 12/07/18 15:21 12/07/18 15:21 <Tony Brooks - Last Filed: 12/07/18 16:28> - Lab Data Result diagrams: 12/07/18 15:21 12/07/18 15:21 <Trung Ruelas - Last Filed: 12/07/18 17:11> - Lab Data Lab Results 12/07/18 12/07/18 12/07/18 Range/Units 15:21 15:21 15:21 WBC 6.7 (3.8-10.6) k/uL RBC 4.38 (3.80-5.40) m/uL Hgb 12.7 (11.4-16.0) gm/dL Hct 37.4 (34.0-46.0) % MCV 85.4 (80.0-100.0) fL MCH 28.9 (25.0-35.0) pg MCHC 33.9 (31.0-37.0) g/dL RDW 13.7 (11.5-15.5) % Plt Count 204 (150-450) k/uL Neutrophils % 63 % Lymphocytes % 21 % Monocytes % 6 % Eosinophils % 8 % Basophils % 1 % Neutrophils # 4.2 (1.3-7.7) k/uL Lymphocytes # 1.4 (1.0-4.8) k/uL Monocytes # 0.4 (0-1.0) k/uL Eosinophils # 0.5 (0-0.7) k/uL Basophils # 0.1 (0-0.2) k/uL Sodium 138 (137-145) mmol/L Potassium 5.5 H (3.5-5.1) mmol/L Chloride 109 H (98-107) mmol/L Carbon Dioxide 21 L (22-30) mmol/L Anion Gap 8 mmol/L BUN 30 H (7-17) mg/dL Creatinine 1.44 H (0.52-1.04) mg/dL Est GFR (CKD-EPI)AfAm 48 (>60 ml/min/1.73 sqM) Est GFR (CKD-EPI)NonAf 42 (>60 ml/min/1.73 sqM) Glucose 103 H (74-99) mg/dL Calcium 10.0 (8.4-10.2) mg/dL Total Bilirubin 0.7 (0.2-1.3) mg/dL AST 27 (14-36) U/L ALT 33 (9-52) U/L Alkaline Phosphatase 69 (38-126) U/L Total Protein 7.3 (6.3-8.2) g/dL Albumin 4.4 (3.5-5.0) g/dL Amylase 47 (30-110) U/L Lipase 110 (23-300) U/L Urine Color Yellow Urine Appearance Clear (Clear) Urine pH 5.0 (5.0-8.0) Ur Specific [place] 1.012 (1.001-1.035) Urine Protein Negative (Negative) Urine Glucose (UA) Negative (Negative) Urine Ketones Negative (Negative) Urine Blood Negative (Negative) Urine Nitrite Negative (Negative) Urine Bilirubin Negative (Negative) Urine Urobilinogen <2.0 (<2.0) mg/dL Ur Leukocyte Esterase Negative (Negative) - EKG Data EKG Comments: EKG performed at 15:33 normal sinus rhythm with incomplete right bundle rate is 63 [place] 134 QRS 98 QT/QTC 384/372 (Tony Brooks) Disposition <Tony Brooks - Last Filed: 12/07/18 16:28> Is patient prescribed a controlled substance at d/c from ED?: No <Trung Ruelas - Last Filed: 12/07/18 17:11> Clinical Impression: Abdominal pain Disposition: HOME SELF-CARE Condition: Good Instructions (If sedation given, give patient instructions): Abdominal Pain (ED ) Referrals: Azucena Liang MD [Primary Care Provider] - 1-2 days
[2018-12-07 15:59] LABS: Basophils # (A) 0.1 k/uL (0-0.2); Basophils % (A) 1 %; Eosinophils # (A) 0.5 k/uL (0-0.7); Eosinophils % (A) 8 %; HCT 37.4 % (34.0-46.0); HGB 12.7 gm/dL (11.4-16.0); Lymphocytes # (A) 1.4 k/uL (1.0-4.8); Lymphocytes % (A) 21 %; MCH 28.9 pg (25.0-35.0); MCHC 33.9 g/dL (31.0-37.0); MCV 85.4 fL (80.0-100.0); Mean Platelet Volume 7.5; Monocytes # (A) 0.4 k/uL (0-1.0); Monocytes % (A) 6 %; Neutrophils # (A) 4.2 k/uL (1.3-7.7); Neutrophils % (A) 63 %; Platelet Count 204 k/uL (150-450); RBC 4.38 m/uL (3.80-5.40); RDW 13.7 % (11.5-15.5); WBC 6.7 k/uL (3.8-10.6)
[2018-12-07 16:02] LABS: Appearance,Urine Clear (Clear); Bilirubin,Urine Negative (Negative); Blood,Urine Negative (Negative); Color,Urine Yellow; Glucose,Urine (UA) Negative (Negative); Ketones,Urine Negative (Negative); Leukocyte Esterase,Urine Negative (Negative); Nitrite,Urine Negative (Negative); Protein,Urine Negative (Negative); Specific Gravity,Urine 1.012 (1.001-1.035); Urobilinogen,Urine <2.0 mg/dL (<2.0)
[2018-12-07 16:14] LABS: Albumin 4.4 g/dL (3.5-5.0); Potassium 5.5 mmol/L (3.5-5.1); Total Bilirubin 0.7 mg/dL (0.2-1.3); Total Protein 7.3 g/dL (6.3-8.2)
--- NOTE | 2018-12-07 17:07 | CT ---
EXAMINATION TYPE: CT abdomen pelvis wo con DATE OF EXAM: 12/07/2018 COMPARISON: None HISTORY: Right side flank pain. CT DLP: 762.3 mGycm Automated exposure control for dose reduction was used. TECHNIQUE: Helical acquisition of images was performed from the lung bases through the pelvis. FINDINGS: Lung bases are clear of infiltrate. There is no pleural effusion. Heart size is normal. There is smal l hiatal hernia. The stomach appears normal. Liver spleen pancreas appear normal. Bile ducts are not dilated. Gallblad elliott appears absent. There is no adrenal mass. The kidneys have normal size. I see no evidence of a renal calculus. Ureter s are not dilated. I see no hydronephrosis. There is no retroperitoneal adenopathy. The appendix appe ars normal. There is no mesenteric edema. There is no sign of free air. There is no ascites. Bladder distends smoothly. There is no inguinal hernia. I see no evidence of a pelvic mass. I see no bony jazz tructive process. IMPRESSION: No renal stone or obstruction. Normal appendix. No sign of acute abdomen and pelvis.: IMPRESSION:
[2018-12-07 17:31] VITALS: BP 144/62; PULSE 69; RESP 19; TEMP 98
== END 2018-12-07 17:31 | disposition home or self-care (01) ==
LOC: EC 13:02
DX: R10.9 Unspecified abdominal pain (principal); I11.0 Hypertensive heart disease with heart failure; I50.9 Heart failure, unspecified; E78.5 Hyperlipidemia, unspecified; Z86.711 Personal history of pulmonary embolism; Z86.718 Personal history of other venous thrombosis and embolism; Z86.14 Personal history of Methicillin resistant Staphylococcus aureus infection; Z90.49 Acquired absence of other specified parts of digestive tract; Z98.51 Tubal ligation status; Z94.1 Heart transplant status; Z95.810 Presence of automatic (implantable) cardiac defibrillator; Z98.890 Other specified postprocedural states; Z79.82 Long term (current) use of aspirin; Z79.899 Other long term (current) drug therapy; Z88.0 Allergy status to penicillin; Z88.2 Allergy status to sulfonamides; Z88.5 Allergy status to narcotic agent; Z91.048 Other nonmedicinal substance allergy status
CPT/HCPCS: 36415; 93005; 80053; 82150; 83690; 85025; 81003; 74176; 99284; 96374; 96375; 96361; J2270; J2405

== ENCOUNTER → 2018-12-30 | Outpatient (CLI) | payer MEDICARE ==
[2018-12-30 12:36] LABS: Basophils # (A) 0.1 k/uL (0-0.2); Basophils % (A) 1 %; Eosinophils # (A) 0.7 k/uL (0-0.7); Eosinophils % (A) 10 %; HCT 40.5 % (34.0-46.0); HGB 13.1 gm/dL (11.4-16.0); Lymphocytes # (A) 1.1 k/uL (1.0-4.8); Lymphocytes % (A) 17 %; MCH 28.6 pg (25.0-35.0); MCHC 32.4 g/dL (31.0-37.0); MCV 88.3 fL (80.0-100.0); Mean Platelet Volume 6.9; Monocytes # (A) 0.4 k/uL (0-1.0); Monocytes % (A) 6 %; Neutrophils % (A) 63 %; Platelet Count 225 k/uL (150-450); RBC 4.59 m/uL (3.80-5.40); RDW 13.4 % (11.5-15.5); WBC 6.4 k/uL (3.8-10.6)
[2018-12-30 16:39] LABS: Anion Gap 7.6 mmol/L (4.00-12.00); Calcium 9.8 mg/dL (8.7-10.3); Carbon Dioxide 23.4 mmol/L (21.6-31.8); Potassium 5.2 mmol/L (3.5-5.5)
[2019-01-01 12:03] LABS: ALT 32 U/L (8-44); AST 29 U/L (13-35); Albumin/Globulin Ratio 1.92 (1.60-3.17); Alkaline Phosphatase 90 U/L (41-126); Bilirubin, Conjugated <0.20 mg/dL (0.20-0.40); Creatine Kinase 75 U/L (26-186); Globulin 2.4 g/dL (1.6-3.3); Magnesium 1.7 mg/dL (1.5-2.4); Total Bilirubin 0.6 mg/dL (0.3-1.2)
== END | disposition home or self-care (01) ==
LOC: LABWHC1 11:38
PROVIDERS: ATTEND Internal Medicine
DX: T86.20 Unspecified complication of heart transplant (principal); T86.21 Heart transplant rejection; T86.22 Heart transplant failure; T86.23 Heart transplant infection; T86.290 Cardiac allograft vasculopathy; E78.2 Mixed hyperlipidemia; I50.30 Unspecified diastolic (congestive) heart failure
CPT/HCPCS: 36415; 80048; 80076; 82550; 83735; 85025

== ENCOUNTER → 2019-01-13 | Outpatient (CLI) | payer MEDICARE ==
[2019-01-13 12:27] LABS: Basophils # (A) 0.1 k/uL (0-0.2); Basophils % (A) 1 %; Eosinophils # (A) 0.8 k/uL (0-0.7); Eosinophils % (A) 11 %; HCT 41.2 % (34.0-46.0); Lymphocytes # (A) 1.2 k/uL (1.0-4.8); Lymphocytes % (A) 17 %; MCH 27.4 pg (25.0-35.0); MCHC 31.7 g/dL (31.0-37.0); MCV 86.6 fL (80.0-100.0); Mean Platelet Volume 7.7; Monocytes # (A) 0.4 k/uL (0-1.0); Monocytes % (A) 6 %; Neutrophils # (A) 4.4 k/uL (1.3-7.7); Neutrophils % (A) 64 %; Platelet Count 225 k/uL (150-450); RBC 4.76 m/uL (3.80-5.40); RDW 13.3 % (11.5-15.5)
[2019-01-13 22:20] LABS: Anion Gap 6.9 mmol/L (4.00-12.00); Calcium 9.8 mg/dL (8.7-10.3); Carbon Dioxide 25.1 mmol/L (21.6-31.8); Potassium 5.4 mmol/L (3.5-5.5)
== END | disposition home or self-care (01) ==
LOC: LABWHC1 11:19
PROVIDERS: ATTEND Internal Medicine
DX: T86.20 Unspecified complication of heart transplant (principal); T86.21 Heart transplant rejection; T86.22 Heart transplant failure; T86.23 Heart transplant infection; T86.290 Cardiac allograft vasculopathy; E78.2 Mixed hyperlipidemia; I50.30 Unspecified diastolic (congestive) heart failure
CPT/HCPCS: 36415; 80048; 85025

== ENCOUNTER → 2019-02-15 | Outpatient (CLI) | payer MEDICARE ==
[2019-02-15 12:23] LABS: Basophils # (A) 0.1 k/uL (0-0.2); Basophils % (A) 1 %; Eosinophils # (A) 0.7 k/uL (0-0.7); Eosinophils % (A) 11 %; HCT 39.5 % (34.0-46.0); HGB 12.5 gm/dL (11.4-16.0); Lymphocytes # (A) 1.2 k/uL (1.0-4.8); Lymphocytes % (A) 21 %; MCH 27.9 pg (25.0-35.0); MCHC 31.7 g/dL (31.0-37.0); MCV 87.9 fL (80.0-100.0); Mean Platelet Volume 7.3; Monocytes # (A) 0.3 k/uL (0-1.0); Monocytes % (A) 5 %; Neutrophils # (A) 3.4 k/uL (1.3-7.7); Neutrophils % (A) 58 %; Platelet Count 198 k/uL (150-450); RDW 13.4 % (11.5-15.5); WBC 5.8 k/uL (3.8-10.6)
[2019-02-15 16:36] LABS: Anion Gap 7.4 mmol/L (4.00-12.00); Calcium 9.5 mg/dL (8.7-10.3); Carbon Dioxide 21.6 mmol/L (21.6-31.8); Potassium 5.7 mmol/L (3.5-5.5)
== END ==
LOC: LABWHC1 11:38
PROVIDERS: ATTEND Internal Medicine
DX: E78.2 Mixed hyperlipidemia (principal); I50.30 Unspecified diastolic (congestive) heart failure; T86.20 Unspecified complication of heart transplant; T86.21 Heart transplant rejection; T86.22 Heart transplant failure; T86.23 Heart transplant infection; T86.890 Other transplanted tissue rejection; Z94.1 Heart transplant status
CPT/HCPCS: 36415; 80048; 85025

== ENCOUNTER → 2019-03-03 | Outpatient (CLI) | payer MEDICARE ==
[2019-03-03 09:01] LABS: Basophils % (A) 1 %; Eosinophils # (A) 0.7 k/uL (0-0.7); Eosinophils % (A) 12 %; HCT 38.7 % (34.0-46.0); HGB 12.3 gm/dL (11.4-16.0); Lymphocytes # (A) 1.3 k/uL (1.0-4.8); Lymphocytes % (A) 23 %; MCH 27.6 pg (25.0-35.0); MCHC 31.7 g/dL (31.0-37.0); MCV 86.9 fL (80.0-100.0); Mean Platelet Volume 7.6; Monocytes # (A) 0.4 k/uL (0-1.0); Monocytes % (A) 6 %; Neutrophils # (A) 3.4 k/uL (1.3-7.7); Neutrophils % (A) 57 %; Platelet Count 213 k/uL (150-450); RBC 4.45 m/uL (3.80-5.40); RDW 13.4 % (11.5-15.5)
[2019-03-03 16:14] LABS: Anion Gap 8.4 mmol/L (4.00-12.00); Calcium 9.1 mg/dL (8.7-10.3); Carbon Dioxide 24.6 mmol/L (21.6-31.8)
== END | disposition home or self-care (01) ==
LOC: LABWHC1 08:13
PROVIDERS: ATTEND Internal Medicine
DX: T86.20 Unspecified complication of heart transplant (principal); T86.21 Heart transplant rejection; T86.22 Heart transplant failure; T86.23 Heart transplant infection; T86.290 Cardiac allograft vasculopathy; E78.2 Mixed hyperlipidemia; I50.30 Unspecified diastolic (congestive) heart failure
CPT/HCPCS: 36415; 80048; 85025

== ENCOUNTER → 2019-03-24 | Outpatient (CLI) | payer MEDICARE ==
[2019-03-24 11:08] LABS: Basophils % (A) 1 %; Eosinophils # (A) 0.7 k/uL (0-0.7); Eosinophils % (A) 11 %; HCT 38.1 % (34.0-46.0); HGB 12.5 gm/dL (11.4-16.0); Lymphocytes # (A) 0.9 k/uL (1.0-4.8); Lymphocytes % (A) 13 %; MCH 27.8 pg (25.0-35.0); MCHC 32.7 g/dL (31.0-37.0); MCV 84.9 fL (80.0-100.0); Mean Platelet Volume 7.6; Monocytes # (A) 0.4 k/uL (0-1.0); Monocytes % (A) 7 %; Neutrophils # (A) 4.5 k/uL (1.3-7.7); Neutrophils % (A) 67 %; Platelet Count 191 k/uL (150-450); RBC 4.49 m/uL (3.80-5.40); RDW 14.5 % (11.5-15.5); WBC 6.7 k/uL (3.8-10.6)
[2019-03-24 16:54] LABS: African American GFR (CKD) 42.2 (60.0-200.0); Anion Gap 8.1 mmol/L (4.00-12.00); BUN/Creat Ratio 23.75 Ratio (12.00-20.00); Calcium 9.5 mg/dL (8.7-10.3); Carbon Dioxide 22.9 mmol/L (21.6-31.8); Potassium 4.9 mmol/L (3.5-5.5)
== END | disposition home or self-care (01) ==
LOC: LABWHC1 09:43
PROVIDERS: ATTEND Internal Medicine
DX: E78.2 Mixed hyperlipidemia (principal); I50.30 Unspecified diastolic (congestive) heart failure; T86.20 Unspecified complication of heart transplant; T86.21 Heart transplant rejection; T86.22 Heart transplant failure; T86.23 Heart transplant infection; T86.290 Cardiac allograft vasculopathy; Z94.1 Heart transplant status
CPT/HCPCS: 36415; 80048; 85025

== ENCOUNTER → 2019-06-02 | Outpatient (CLI) | payer MEDICARE ==
[2019-06-02 12:45] LABS: Basophils # (A) 0.1 k/uL (0-0.2); Basophils % (A) 1 %; Eosinophils # (A) 1.1 k/uL (0-0.7); Eosinophils % (A) 18 %; HGB 12.5 gm/dL (11.4-16.0); Lymphocytes # (A) 1.2 k/uL (1.0-4.8); Lymphocytes % (A) 19 %; MCH 29.1 pg (25.0-35.0); MCHC 33.8 g/dL (31.0-37.0); MCV 86.1 fL (80.0-100.0); Mean Platelet Volume 7.9; Monocytes # (A) 0.3 k/uL (0-1.0); Monocytes % (A) 5 %; Neutrophils # (A) 3.5 k/uL (1.3-7.7); Neutrophils % (A) 55 %; Platelet Count 224 k/uL (150-450); RDW 13.8 % (11.5-15.5); WBC 6.3 k/uL (3.8-10.6)
[2019-06-02 19:56] LABS: African American GFR (CKD) 42.2 (60.0-200.0); Albumin 4.3 g/dL (3.80-4.90); Albumin/Globulin Ratio 1.95 (1.60-3.17); Anion Gap 11.6 mmol/L (4.00-12.00); BUN/Creat Ratio 23.75 Ratio (12.00-20.00); Calcium 9.4 mg/dL (8.7-10.3); Carbon Dioxide 20.4 mmol/L (21.6-31.8); Globulin 2.2 g/dL (1.6-3.3); Magnesium 1.6 mg/dL (1.5-2.4); Non-African American GFR(CKD) 36.4 (60.0-200.0); Potassium 4.8 mmol/L (3.5-5.5); Total Bilirubin 0.6 mg/dL (0.3-1.2); Total Protein 6.5 g/dL (6.2-8.2)
== END | disposition home or self-care (01) ==
LOC: LABWHC1 11:24
PROVIDERS: ATTEND Internal Medicine
DX: T86.20 Unspecified complication of heart transplant (principal); T86.21 Heart transplant rejection; T86.22 Heart transplant failure; T86.23 Heart transplant infection; T86.290 Cardiac allograft vasculopathy; I50.30 Unspecified diastolic (congestive) heart failure; E78.2 Mixed hyperlipidemia; I50.84 End stage heart failure
CPT/HCPCS: 36415; 80053; 82550; 83735; 83880; 85025

== ENCOUNTER → 2019-06-18 | Outpatient (CLI) | payer MEDICARE ==
[2019-06-18 10:41] LABS: Basophils # (A) 0.1 k/uL (0-0.2); Basophils % (A) 1 %; Eosinophils # (A) 1.2 k/uL (0-0.7); Eosinophils % (A) 19 %; HCT 35.4 % (34.0-46.0); HGB 11.7 gm/dL (11.4-16.0); Lymphocytes # (A) 1.4 k/uL (1.0-4.8); Lymphocytes % (A) 23 %; MCH 28.6 pg (25.0-35.0); MCHC 33.1 g/dL (31.0-37.0); MCV 86.4 fL (80.0-100.0); Mean Platelet Volume 8.1; Monocytes # (A) 0.4 k/uL (0-1.0); Monocytes % (A) 6 %; Neutrophils % (A) 49 %; Platelet Count 204 k/uL (150-450); RBC 4.09 m/uL (3.80-5.40); WBC 6.2 k/uL (3.8-10.6)
[2019-06-18 16:08] LABS: African American GFR (CKD) 42.2 (60.0-200.0); Anion Gap 9.5 mmol/L (4.00-12.00); BUN/Creat Ratio 28.13 Ratio (12.00-20.00); Calcium 9.5 mg/dL (8.7-10.3); Carbon Dioxide 22.5 mmol/L (21.6-31.8); Potassium 4.5 mmol/L (3.5-5.5)
== END | disposition home or self-care (01) ==
LOC: LABWHC1 10:02
PROVIDERS: ATTEND Internal Medicine
DX: E78.2 Mixed hyperlipidemia (principal); I50.30 Unspecified diastolic (congestive) heart failure; I50.84 End stage heart failure; Z94.1 Heart transplant status
CPT/HCPCS: 36415; 80048; 85025

== ENCOUNTER → 2019-09-29 | Outpatient (CLI) | payer MEDICARE ==
[2019-09-29 09:07] LABS: Basophils # (A) 0.1 k/uL (0-0.2); Basophils % (A) 1 %; Eosinophils % (A) 17 %; HGB 12.6 gm/dL (11.4-16.0); Lymphocytes # (A) 1.2 k/uL (1.0-4.8); Lymphocytes % (A) 21 %; MCH 29.1 pg (25.0-35.0); MCHC 33.2 g/dL (31.0-37.0); MCV 87.6 fL (80.0-100.0); Mean Platelet Volume 8.3; Monocytes # (A) 0.4 k/uL (0-1.0); Monocytes % (A) 7 %; Neutrophils % (A) 53 %; Platelet Count 202 k/uL (150-450); RBC 4.33 m/uL (3.80-5.40); RDW 13.1 % (11.5-15.5); WBC 5.8 k/uL (3.8-10.6)
[2019-09-29 16:39] LABS: African American GFR (CKD) 49.6 (60.0-200.0); Albumin 4.5 g/dL (3.80-4.90); Albumin/Globulin Ratio 2.25 (1.60-3.17); BUN/Creat Ratio 16.43 Ratio (12.00-20.00); Calcium 9.6 mg/dL (8.7-10.3); Magnesium 1.7 mg/dL (1.5-2.4); Non-African American GFR(CKD) 42.8 (60.0-200.0); Potassium 4.6 mmol/L (3.5-5.5); Total Bilirubin 0.6 mg/dL (0.3-1.2); Total Protein 6.5 g/dL (6.2-8.2)
== END | disposition home or self-care (01) ==
LOC: LABWHC1 08:14
PROVIDERS: ATTEND Internal Medicine
DX: I50.30 Unspecified diastolic (congestive) heart failure (principal); T86.20 Unspecified complication of heart transplant; T86.21 Heart transplant rejection; T86.22 Heart transplant failure; T86.23 Heart transplant infection; T86.290 Cardiac allograft vasculopathy; E78.2 Mixed hyperlipidemia; I50.84 End stage heart failure
CPT/HCPCS: 36415; 80053; 82550; 83735; 83880; 85025

== ENCOUNTER → 2019-11-10 | Outpatient (CLI) | payer MEDICARE ==
[2019-11-10 08:44] LABS: Basophils # (A) 0.1 k/uL (0-0.2); Basophils % (A) 1 %; Eosinophils # (A) 0.8 k/uL (0-0.7); Eosinophils % (A) 13 %; HCT 41.2 % (34.0-46.0); HGB 13.2 gm/dL (11.4-16.0); Lymphocytes # (A) 1.8 k/uL (1.0-4.8); Lymphocytes % (A) 32 %; MCH 28.2 pg (25.0-35.0); Mean Platelet Volume 8.1; Monocytes # (A) 0.4 k/uL (0-1.0); Monocytes % (A) 6 %; Neutrophils # (A) 2.7 k/uL (1.3-7.7); Neutrophils % (A) 46 %; Platelet Count 175 k/uL (150-450); RBC 4.68 m/uL (3.80-5.40); RDW 13.2 % (11.5-15.5); WBC 5.8 k/uL (3.8-10.6)
[2019-11-10 18:36] LABS: African American GFR (CKD) 45.6 (60.0-200.0); Anion Gap 8.7 mmol/L (4.00-12.00); Calcium 9.8 mg/dL (8.7-10.3); Carbon Dioxide 25.3 mmol/L (21.6-31.8); Non-African American GFR(CKD) 39.4 (60.0-200.0); Potassium 4.6 mmol/L (3.5-5.5)
== END | disposition home or self-care (01) ==
LOC: LABWHC1 08:10
PROVIDERS: ATTEND Internal Medicine
DX: E78.2 Mixed hyperlipidemia (principal); T86.20 Unspecified complication of heart transplant; T86.21 Heart transplant rejection; T86.22 Heart transplant failure; T86.23 Heart transplant infection; T86.290 Cardiac allograft vasculopathy; I50.30 Unspecified diastolic (congestive) heart failure
CPT/HCPCS: 36415; 80048; 85025

== ENCOUNTER 2019-12-01 15:12 | Observation (INO) | payer MEDICARE ==
--- NOTE | 2019-12-01 16:02 | ED ---
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 Patient had been having a bowel movement, she had severe abdominal pain and became diaphoretic. She felt lightheaded and then had syncopal episode lasting just seconds. She had no inju ry with this episode. Her lowered to the ground. She remained lightheaded and diaphoretic for several minutes. Her abdominal pain completely resolved. She has no abdominal pain at the time my evaluation. No chest pain. She has no complaints whatsoever. She denied any preceding chest pain or palpitations. She has history of cardiac transplant currently on tacrolimus 1 mg daily she follows with [facility]. History of hypertension. (Girma Joyce) - Related Data Home Medications Medication Instructions Recorded Confirmed Magnesium Oxide [Mag-Ox] 800 mg PO BID 09/06/14 12/07/18 Ascorbic Acid [Vitamin C] 500 mg PO BID 05/09/15 12/07/18 Aspirin EC [Ecotrin Low Dose] 81 mg PO DAILY 05/09/15 12/07/18 Vitamin E (Dl,Tocopheryl Acet) 400 unit PO BID 05/09/15 12/07/18 [Vitamin E] Tacrolimus [Prograf] 3 mg PO DAILY 10/26/15 12/07/18 Calcium Citrate/Vitamin D3 1 tab PO TID-W/MEALS 11/07/17 12/07/18 [Calcitrate + Vit D Caplet] Pravastatin Sodium [Pravachol] 20 mg PO HS 11/07/17 12/07/18 Tacrolimus [Prograf] 4 mg PO HS 11/07/17 12/07/18 Carvedilol [Coreg] 3.125 mg PO BID 12/07/18 12/07/18 Losartan Potassium 100 mg PO HS 12/07/18 12/07/18 Mycophenolate Mofetil [Cellcept] 500 mg PO BID 12/07/18 12/07/18 Allergies Allergy/AdvReac Type Severity Reaction Status Date / Time adhesive Allergy Rash/Hives Verified 12/01/19 15:23 meperidine HCl [From Demerol] Allergy Rash/Hives Verified 12/01/19 15:23 Penicillins Allergy Rash/Hives Verified 12/01/19 15:23 Sulfa (Sulfonamide Allergy Rash/Hives Verified 12/01/19 15:23 Antibiotics) Review of Systems ROS Other: All systems not noted in ROS Statement are negative. <Girma Joyce - Last Filed: 12/01/19 15:58> ROS Other: All systems not noted in ROS Statement are negative. <Trung Ruelas - Last Filed: 12/01/19 18:25> ROS Statement: Those systems with pertinent positive or pertinent negative responses have been documented in the HPI. Past Medical History Past Medical History: Chest Pain / Angina, Heart Failure, Deep Vein Thrombosis (DVT), Hyperlipidemia, Osteoarthritis (OA), Pneumonia, Pulmonary Embolus (PE) Additional Past Medical History / Comment(s): 05-09-15 ADMITTED TO [facility] WITH CHEST PAIN NEAR SYNCOPAL EPISODE.OTHER HX: 1991 HAD OVERACTIVE THYROID TOOK MEDS X1 YEAR THEN DISCONTINUED, , ANEMIA IN PAST, past hx listed mi-pt unaware of this. past afib per old hx before heart transplant, Last Myocardial Infarction Date:: 04/2014 History of Any Multi-Drug Resistant Organisms: None Reported, MRSA Date of last positivie culture/infection: 01/2015 MDRO Source:: pacemaker Past Surgical History: Ablation, Cardiac Ablation, Heart Catheterization, Tubal Ligation Additional Past Surgical History / Comment(s): 2008 HAS EP STUDIES,CARDAIC ABLATION 1999, had pacemeaker/defibrilator but that was removed when pt had h eart transplant -2014 ,CRYOTHERAPY SX FOR HIGH GRADE CELLS (CERVICAL), S/P ICD; Heart Transplant 12/2014 Past Anesthesia/Blood Transfusion Reactions: Motion Sickness, Postoperative Nausea & Vomiting (PONV) Type of Cardiac Device: Permanent Pacemaker, AICD Device Placement Date:: January 13 2014 Past Psychological History: No Psychological Hx Reported Smoking Status: Never smoker Past Alcohol Use History: None Reported Past Drug Use History: None Reported - Past Family History Father History Unknown: Yes Mother Family Medical History: Deep Vein Thrombosis (DVT), Hypertension <Girma Joyce [place] - Last Filed: 12/01/19 15:58> General Exam Limitations: no limitations General appearance: alert, in no apparent distress Head exam: Present: atraumatic, normocephalic Eye exam: Present: normal appearance, PERRL ENT exam: Present: normal exam Neck exam: Present: normal inspection. Absent: tenderness, meningismus Respiratory exam: Present: normal lung sounds bilaterally. Absent: respiratory distress, wheezes Cardiovascular Exam: Present: regular rate, normal rhythm GI/Abdominal exam: Present: soft. Absent: distended, tenderness, guarding Extremities exam: Present: normal inspection, normal capillary refill. Absent: pedal edema Back exam: Present: full ROM Neurological exam: Present: alert, oriented X3, CN II-XII intact. Absent: motor sensory deficit Psychiatric exam: Present: normal affect, normal mood Skin exam: Present: warm, dry, intact. Absent: cyanosis, diaphoretic <EnidtahirGirma Milan - Last Filed: 12/01/19 15:58> Course <Trung Ruelas - Last Filed: 12/01/19 18:25> Vital Signs 12/01/19 12/01/19 12/01/19 15:20 16:00 17:00 Temperature 97.8 F Pulse Rate 76 68 72 Respiratory 18 18 16 Rate Blood Pressure 151/92 174/96 O2 Sat by Pulse 99 99 Oximetry - Reevaluation(s) Reevaluation #1: 12/01/19 18:22 Records review of (Trung Ruelas) Reevaluation #2: 12/01/19 18:[address] 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 Santillan who is okay for admission (Trung Ruelas) EKG Findings - EKG Comments: EKG Findings:: EKG: Normal sinus rhythm, incomplete right bundle-branch block, rate of 73, MT interval 146, QRS duration 98, QTC 49, no ST segment elevation, no change compared to previous and febrile 2019. 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 Patient will be admitted for telemetry cardiology observation and possible outpatient monitoring of arrhythmia. At this time patient is asymptomatic (Trung Ruelas) - Lab Data Lab Results 12/01/19 12/01/19 12/01/19 Range/Units 15:52 15:52 15:52 WBC 8.9 (3.8-10.6) k/uL RBC 4.56 (3.80-5.40) m/uL Hgb 13.0 (11.4-16.0) gm/dL Hct 39.2 (34.0-46.0) % MCV 86.0 (80.0-100.0) fL MCH 28.4 (25.0-35.0) pg MCHC 33.0 (31.0-37.0) g/dL RDW 13.1 (11.5-15.5) % Plt Count 181 (150-450) k/uL Neutrophils % 67 % Lymphocytes % 14 % Monocytes % 6 % Eosinophils % 11 % Basophils % 1 % Neutrophils # 6.0 (1.3-7.7) k/uL Lymphocytes # 1.2 (1.0-4.8) k/uL Monocytes # 0.5 (0-1.0) k/uL Eosinophils # 1.0 H (0-0.7) k/uL Basophils # 0.1 (0-0.2) k/uL PT 11.0 (9.0-12.0) sec INR 1.1 (<1.2) APTT 21.8 L (22.0-30.0) sec Sodium 138 (137-145) mmol/L Potassium 5.2 H (3.5-5.1) mmol/L Chloride 107 (98-107) mmol/L Carbon Dioxide 24 (22-30) mmol/L Anion Gap 7 mmol/L BUN 22 H (7-17) mg/dL Creatinine 1.38 H (0.52-1.04) mg/dL Est GFR (CKD-EPI)AfAm 50 (>60 ml/min/1.73 sqM) Est GFR (CKD-EPI)NonAf 44 (>60 ml/min/1.73 sqM) Glucose 99 (74-99) mg/dL Calcium 10.1 (8.4-10.2) mg/dL Magnesium 1.6 (1.6-2.3) mg/dL Total Bilirubin 0.5 (0.2-1.3) mg/dL AST 25 (14-36) U/L ALT 15 (4-34) U/L Alkaline Phosphatase 61 (38-126) U/L Troponin I (0.000-0.034) ng/mL Total Protein 7.1 (6.3-8.2) g/dL Albumin 4.2 (3.5-5.0) g/dL 12/01/19 Range/Units 15:52 WBC (3.8-10.6) k/uL RBC (3.80-5.40) m/uL Hgb (11.4-16.0) gm/dL Hct (34.0-46.0) % MCV (80.0-100.0) fL MCH (25.0-35.0) pg MCHC (31.0-37.0) g/dL RDW (11.5-15.5) % Plt Count (150-450) k/uL Neutrophils % % Lymphocytes % % Monocytes % % Eosinophils % % Basophils % % Neutrophils # (1.3-7.7) k/uL Lymphocytes # (1.0-4.8) k/uL Monocytes # (0-1.0) k/uL Eosinophils # (0-0.7) k/uL Basophils # (0-0.2) k/uL PT (9.0-12.0) sec INR (<1.2) APTT (22.0-30.0) sec Sodium (137-145) mmol/L Potassium (3.5-5.1) mmol/L Chloride (98-107) mmol/L Carbon Dioxide (22-30) mmol/L Anion Gap mmol/L BUN (7-17) mg/dL Creatinine (0.52-1.04) mg/dL Est GFR (CKD-EPI)AfAm (>60 ml/min/1.73 sqM) Est GFR (CKD-EPI)NonAf (>60 ml/min/1.73 sqM) Glucose (74-99) mg/dL Calcium (8.4-10.2) mg/dL Magnesium (1.6-2.3) mg/dL Total Bilirubin (0.2-1.3) mg/dL AST (14-36) U/L ALT (4-34) U/L Alkaline Phosphatase (38-126) U/L Troponin I <0.012 (0.000-0.034) ng/mL Total Protein (6.3-8.2) g/dL Albumin (3.5-5.0) g/dL Critical Care Time Critical Care Time: Yes Total Critical Care Time: 31 <Trung Ruelas - Last Filed: 12/01/19 18:25> Disposition <Girma Joyce - Last Filed: 12/01/19 15:58> Is patient prescribed a controlled substance at d/c from ED?: No <Trung Ruelas - Last Filed: 12/01/19 18:25> Clinical Impression: Vasovagal syncope, Syncope, Bradycardia, Cardiomyopathy Disposition: ADMITTED IP TO THIS HOSP Condition: Fair Referrals: Tony Campos MD [Family Provider] - 1-2 days
[2019-12-01 16:07] LABS: Basophils # (A) 0.1 k/uL (0-0.2); Basophils % (A) 1 %; Eosinophils % (A) 11 %; HCT 39.2 % (34.0-46.0); Lymphocytes # (A) 1.2 k/uL (1.0-4.8); Lymphocytes % (A) 14 %; MCH 28.4 pg (25.0-35.0); Mean Platelet Volume 8.4; Monocytes # (A) 0.5 k/uL (0-1.0); Monocytes % (A) 6 %; Neutrophils % (A) 67 %; Platelet Count 181 k/uL (150-450); RBC 4.56 m/uL (3.80-5.40); RDW 13.1 % (11.5-15.5); WBC 8.9 k/uL (3.8-10.6)
[2019-12-01 16:12] LABS: Albumin 4.2 g/dL (3.5-5.0); Calcium 10.1 mg/dL (8.4-10.2); Magnesium 1.6 mg/dL (1.6-2.3); Potassium 5.2 mmol/L (3.5-5.1); Total Bilirubin 0.5 mg/dL (0.2-1.3); Total Protein 7.1 g/dL (6.3-8.2)
--- NOTE | 2019-12-01 16:16 | XR ---
EXAMINATION TYPE: XR chest 2V DATE OF EXAM: 12/01/2019 COMPARISON: Prior chest x-ray 11/07/2017 HISTORY: Syncope TECHNIQUE: Frontal and lateral views of the chest are obtained. FINDINGS: Patient is post median sternotomy. There is no focal air space opacity, pleural effusion, o r pneumothorax seen. The cardiac silhouette size is within normal limits. The osseous structures a re intact. IMPRESSION: No acute cardiopulmonary process.
[2019-12-01] MEDS ORDERED: SODIUM CHLORIDE 0.9% 500 ML 500 ML IV ONE (16:30)
[2019-12-01 16:47] LABS: INR 1.1 (<1.2)
[2019-12-01 16:50] LABS: Partial Thromboplastin Time 21.8 sec (22.0-30.0)
--- NOTE | 2019-12-01 17:30 | CT ---
EXAMINATION TYPE: CT abdomen pelvis wo con DATE OF EXAM: 12/01/2019 COMPARISON: 12/07/2018 HISTORY: generalized pain post syncope CT DLP: 964.5 mGycm Automated exposure control for dose reduction was used. Multiple axial sections were obtained from the diaphragm to the floor the pelvis with no contrast. FINDINGS: Lung bases are clear. There is no pleural effusion. There is no pericardial effusion. Heart appears n ormal. Stomach is intact. Liver spleen pancreas appear normal. Bile ducts are not dilated. Gallbladder is ab sent. There is no adrenal mass. Kidneys have normal size. There is no hydronephrosis. Ureters are not dilat ed. There is no retroperitoneal adenopathy. There is no mesenteric edema. There is no ascites or free air. There is no sign of a bowel obstructio n. There is no inguinal hernia. Bladder distends smoothly. There is no evidence of a pelvic mass. Devorah richard is retroverted. Lumbar spine is intact. Bony pelvis appears intact. There is broad-based umbilica l hernia that contains fat. Appendix appears normal. IMPRESSION: No acute abnormality abdomen and pelvis. No adverse change compared to old exam.
[2019-12-01] MEDS ORDERED: NITROGLYCERIN SL TABS 0.4 MG TAB SUBLINGUAL PRN (18:19)
[2019-12-01] MEDS: CARVEDILOL 3.125 MG TAB PO SCH (23:16)
[2019-12-01] MEDS: MYCOPHENOLATE MOFETIL 500 MG TAB PO SCH (23:17)
[2019-12-01] MEDS: MAGNESIUM OXIDE 400 MG TAB PO SCH (23:17)
[2019-12-01] MEDS: PRAVASTATIN SODIUM 20 MG TAB PO SCH (23:17)
[2019-12-01] MEDS: LOSARTAN 50 MG TAB PO SCH (23:17)
[2019-12-01 23:18] LABS: Appearance,Urine Clear (Clear); Bilirubin,Urine Negative (Negative); Blood,Urine Negative (Negative); Color,Urine Yellow; Glucose,Urine (UA) Negative (Negative); Ketones,Urine Negative (Negative); Nitrite,Urine Negative (Negative); Protein,Urine Negative (Negative); Urobilinogen,Urine <2.0 mg/dL (<2.0)
[2019-12-01 23:19] LABS: Leukocyte Esterase,Urine Negative (Negative)
[2019-12-02 04:57] LABS: Cholesterol 128 mg/dL (<200); HDL Cholesterol 47 mg/dL (40-60); LDL Cholesterol,Calculated 69 mg/dL (0-99); Triglycerides 60 mg/dL (<150)
[2019-12-02] MEDS: CARVEDILOL 3.125 MG TAB PO SCH ×2 (06:17→17:18)
[2019-12-02] MEDS: ACETAMINOPHEN TAB 500 MG TAB PO PRN ×2 (08:54→19:46)
--- NOTE | 2019-12-02 09:27 | P.CRDCN ---
History of Present Illness Consult date: 12/02/19 Requesting physician: Leda Santillan Consult reason: sycope Chief complaint: Syncope History of present illness: This is a pleasant 53-year-old female with history of heart transplant in 2015 paroxysmal atrial fibrillation with prior ablation,htn, hyperlipidemia, who overall has been doing very well at home. She states that yesterday she was in the shower, after coming out of the shower she sat down on the toilet have a bowel movement. Subsequently she became quite diaphoretic and warm, she had some mild abdominal discomfort, and felt as though she may pass out, shortly thereafter she did pass out for a couple of seconds. She was down on the floor crawled back to her bedroom. Continue to be mildly diaphoretic, when she cooled down a bit this subsided and the patient felt well. She did have a similar episodes to this back in 2014. Blood pressure on arrival here 150/90 with a heart rate in the 70s, 99% on room air. Blood pressure this morning 140/80 with a heart rate in the 70s, 97% on room air. White blood cell count 8.9, hemoglobin 13, platelet count 181. Sodium 138, potassium 5.2, BUN 22, creatinine 1.3, magnesium 1.6. Troponins are negative 2. At the time of my examination this morning, patient is resting comfortably in bed, denies any dizziness or lightheadedness, no palpitations, breathing is stable. Past Medical History Past Medical History: Chest Pain / Angina, Heart Failure, Deep Vein Thrombosis (DVT), Hyperlipidemia, Osteoarthritis (OA), Pneumonia, Pulmonary Embolus (PE) Additional Past Medical History / Comment(s): 05-09-15 ADMITTED TO [facility] WITH CHEST PAIN NEAR SYNCOPAL EPISODE.OTHER HX: 1991 HAD OVERACTIVE THYROID TOOK MEDS X1 YEAR THEN DISCONTINUED, , ANEMIA IN PAST, past hx listed mi-pt unaware of this. past afib per old hx before heart transplant, Last Myocardial Infarction Date:: 04/2014 History of Any Multi-Drug Resistant Organisms: None Reported, MRSA Date of last positivie culture/infection: 01/2015 MDRO Source:: pacemaker Past Surgical History: Ablation, Cardiac Ablation, Heart Catheterization, Tubal Ligation Additional Past Surgical History / Comment(s): 2007 HAS EP STUDIES,CARDAIC ABLATION 1999, had pacemeaker/defibrilator but that was removed when pt had heart transplant ,CRYOTHERAPY SX FOR HIGH GRADE CELLS (CERVICAL), S/P ICD; Heart Transplant 12/2014 Past Anesthesia/Blood Transfusion Reactions: Motion Sickness, Postoperative Nausea & Vomiting (PONV) Type of Cardiac Device: Permanent Pacemaker, AICD Device Placement Date:: January 13 2014 Past Psychological History: No Psychological Hx Reported Smoking Status: Never smoker Past Alcohol Use History: None Reported Past Drug Use History: None Reported - Past Family History Father History Unknown: Yes Mother Family Medical History: Deep Vein Thrombosis (DVT), Hypertension Medications and Allergies Home Medications Medication Instructions Recorded Confirmed Type Magnesium Oxide [Mag-Ox] 800 mg PO BID 09/06/14 12/01/19 History Ascorbic Acid [Vitamin C] 500 mg PO BID 05/09/15 12/01/19 History Vitamin E (Dl,Tocopheryl Acet) 400 unit PO BID 05/09/15 12/01/19 History [Vitamin E] Calcium Citrate/Vitamin D3 1 tab PO AC-TID 11/07/17 12/01/19 History [Calcitrate + Vit D Caplet] Pravastatin Sodium [Pravachol] 20 mg PO HS 11/07/17 12/07/18 History Carvedilol [Coreg] 3.125 mg PO BID 12/07/18 12/01/19 History Losartan Potassium 100 mg PO HS 12/07/18 12/01/19 History Mycophenolate Mofetil [Cellcept] 500 mg PO BID 12/07/18 12/01/19 History Aspirin 81 mg PO DAILY 12/01/19 12/01/19 History Tacrolimus [Envarsus Xr] 4 mg PO DAILY 12/01/19 12/01/19 History Allergies Allergy/AdvReac Type Severity Reaction Status Date / Time adhesive Allergy Rash/Hives Verified 12/01/19 15:23 meperidine HCl [From Demerol] Allergy Rash/Hives Verified 12/01/19 15:23 Penicillins Allergy Rash/Hives Verified 12/01/19 15:23 Sulfa (Sulfonamide Allergy Rash/Hives Verified 12/01/19 15:23 Antibiotics) Physical Exam Vitals: Vital Signs Temp Pulse Pulse Pulse Resp BP BP 12/02/19 08:00 97.6 F 76 18 145/88 12/02/19 07:50 97.8 F 80 18 161/106 02/20/20 04:00 97.8 F 86 18 12/02/19 00:00 97.0 F L 94 17 12/01/19 20:59 82 18 175/98 12/01/19 20:00 97.8 F 93 93 18 12/01/19 18:00 73 16 173/94 12/01/19 17:00 72 16 174/96 12/01/19 16:00 68 18 12/01/19 15:20 97.8 F 76 18 151/92 BP Pulse Ox 12/02/19 08:00 12/02/19 07:50 97 12/02/19 04:00 131/80 96 12/02/19 00:00 139/89 95 12/01/19 20:59 98 12/01/19 20:00 175/100 95 12/01/19 18:00 100 12/01/19 17:00 99 12/01/19 16:00 12/01/19 15:20 99 Intake and Output 12/01/19 12/02/19 12/02/19 22:59 06:59 14:59 Intake Total 240 Output Total 300 Balance -300 240 Intake: Oral 240 Output: Urine 300 Other: # Voids 1 Weight 93.894 kg 93.1 kg PHYSICAL EXAMINATION: GENERAL: 53-year-old female in no acute distress at the time of my examination HEENT: Head is atraumatic, normocephalic. Pupils equal, round. Sclera anicteric. Conjunctiva are clear. Mucous membranes of the mouth are moist. Neck is supple. There is no elevated jugular venous pressure. No carotid bruit is heard. HEART EXAMINATION: Heart S1, S2 normal. No murmur or gallop heard. CHEST EXAMINATION: Lungs are clear to auscultation and precussion. No chest wall tenderness is noted on palpation or with deep breathing. ABDOMEN: Soft, nontender. Bowel sounds are heard. No organomegaly noted. EXTREMITIES: 2+ peripheral pulses with no evidence of peripheral edema and no calf tenderness noted. NEUROLOGIC patient is awake, alert and oriented 3 . . Results 12/01/19 15:52 12/01/19 15:52 Cardiac Enzymes 12/01/19 12/01/19 12/01/19 Range/Units 15:52 15:52 21:53 AST 25 (14-36) U/L Troponin I <0.012 <0.012 (0.000-0.034) ng/mL 12/02/19 Range/Units 04:01 AST (14-36) U/L Troponin I <0.012 (0.000-0.034) ng/mL Coagulation 12/01/19 Range/Units 15:52 PT 11.0 (9.0-12.0) sec APTT 21.8 L (22.0-30.0) sec Lipids 12/02/19 Range/Units 04:01 Triglycerides 60 (<150) mg/dL Cholesterol 128 (<200) mg/dL HDL Cholesterol 47 (40-60) mg/dL CBC 12/01/19 Range/Units 15:52 WBC 8.9 (3.8-10.6) k/uL RBC 4.56 (3.80-5.40) m/uL Hgb 13.0 (11.4-16.0) gm/dL Hct 39.2 (34.0-46.0) % Plt Count 181 (150-450) k/uL Comprehensive Metabolic Panel 12/01/19 Range/Units 15:52 Sodium 138 (137-145) mmol/L Potassium 5.2 H (3.5-5.1) mmol/L Chloride 107 (98-107) mmol/L Carbon Dioxide 24 (22-30) mmol/L BUN 22 H (7-17) mg/dL Creatinine 1.38 H (0.52-1.04) mg/dL Glucose 99 (74-99) mg/dL Calcium 10.1 (8.4-10.2) mg/dL AST 25 (14-36) U/L ALT 15 (4-34) U/L Alkaline Phosphatase 61 (38-126) U/L Total Protein 7.1 (6.3-8.2) g/dL Albumin 4.2 (3.5-5.0) g/dL Current Medications Generic Name Dose Route Start Last Admin Trade Name Freq PRN Reason Stop Dose Admin Acetaminophen 500 mg 12/02/19 08:13 12/02/19 08:54 Tylenol Tab PO 500 mg Q6HR PRN Administration Fever and/ or Pain Carvedilol 3.125 mg 12/01/19 22:45 12/02/19 06:17 Coreg PO 3.125 mg BID-W/MEALS ROSEANNE Administration Losartan Potassium 100 mg 12/01/19 22:45 12/01/19 23:17 Cozaar PO Not Given HS ROSEANNE Magnesium Oxide 800 mg 12/01/19 22:45 12/01/19 23:17 Mag-Ox PO Not Given BID ROSEANNE Mycophenolate Mofetil 500 mg 12/01/19 22:45 12/01/19 23:17 Cellcept PO Not Given BID ROSEANNE Nitroglycerin 0.4 mg 12/01/19 18:19 Nitrostat SUBLINGUAL Q5M PRN Chest Pain Non Formulary Drug( 1 each 12/02/19 09:00 Envarsus Xr 4mg) PO DAILY ROSEANNE Pravastatin Sodium 20 mg 12/01/19 22:45 12/01/19 23:17 Pravachol PO Not Given HS ROSEANNE Intake and Output 12/01/19 12/02/19 12/02/19 22:59 06:59 14:59 Intake Total 240 Output Total 300 Balance -300 240 Intake: Oral 240 Output: Urine 300 Other: # Voids 1 Weight 93.894 kg 93.1 kg 12/01/19 15:52 12/01/19 15:52 EKG Interpretations (text) EKG shows a normal sinus rhythm with an incomplete right bundle branch block pattern. Assessment and Plan Plan: Assessment and plan #1 syncope, likely vasovagal in nature #2 history of heart transplant #3 paroxysmal atrial fibrillation status post prior ablation #4 hypertension #5 hyperlipidemia #6 diabetes Plan We will obtain an echocardiogram with Doppler study, check orthostatic heart rate and blood pressure every shift. Monitor for any tachycardia or bradycardia arrhythmias. Further recommendations to follow. DNP note has been reviewed, I agree with a documented findings and plan of care. Patient was seen and examined.
[2019-12-02] MEDS ORDERED: TACROLIMUS 4 MG PO SCH (10:45)
--- NOTE | 2019-12-02 12:27 | CONS ---
CONSULTATION REASON FOR CONSULT: Acute kidney injury. HISTORY OF PRESENT ILLNESS: Patient is a 53-year-old female with history of heart transplant in 2015. The patient has a history of paroxysmal atrial fibrillation with prior ablation, hypertension, hyperlipidemia, chronic kidney disease with serum creatinine staying about 1.3 to 1.4 for baseline. Her creatinine has been as high as 1.6 mg/dL in June of 2019. The patient is maintained on Prograf and CellCept for the cardiac transplant. She is also maintained on angiotensin receptor blockers. The patient was admitted to the hospital with syncope. She stated that she was coming out of the shower and was going to have a bowel movement and then became diaphoretic and warm and passed out. She was down for a couple of seconds. Her heart rate was noted to be low apparently at 49, according to her . PAST MEDICAL HISTORY: Cardiomyopathy, status post cardiac transplant, anemia, history of PE, pneumonia, osteoarthritis, hyperlipidemia, DVT. PAST SURGICAL HISTORY: Cardiac ablation, cardiac catheterization, tubal ligation, heart transplant, AICD placement. MEDICATIONS: Medications at home prior to admission included magnesium, vitamin C, calcium, Pravachol, Coreg, losartan, CellCept, aspirin, Envarsus. ALLERGIES: TAPE, DEMEROL, PENICILLINS, SULFA. PHYSICAL EXAMINATION: On examination, patient is comfortable, awake, alert, oriented x3, not in any acute distress. Blood pressure is 145/88, heart rate 76 per minute. She is afebrile. EXAMINATION OF THE HEART: S1 and S2. EXAMINATION OF THE LUNGS: Bilateral breath sounds are heard. ABDOMEN: Soft, nontender. Examination of lower extremities shows no significant edema. AMUSEMENT RIDE INSPECTOR exam is grossly intact. LABS: Labs show sodium 138, potassium 5.2, chloride 107, CO2 is 24, BUN 22, creatinine 1.38, hemoglobin 13.0 g/dL. UA is completely clear. ASSESSMENT: 1. Chronic kidney disease secondary to chronic use of calcineurin inhibitors post cardiac transplant. Renal function is actually better than it has been previously, seems to be at baseline. There may be a component of acute kidney injury, mainly prerenal. Currently patient is not on any diuretics. She did get IV fluids initially. She is maintained on Cozaar as well. Blood pressure is not low. We can continue with the Cozaar if her blood pressure continues to stay on the higher side. She had been taking it at home and she seems to be stable on it. The patient will need to continue to follow up with the transplant team and with adequate monitoring of her Prograf levels. She is advised to avoid use of any nonsteroidal anti-inflammatory agents and maintain adequate hydration. 2. Syncope. No documented bradycardia in the computer currently. However, according to her , heart rate was in the about 49 initially. The patient is on Coreg which ideally should not cause bradycardia. She is being followed by Cardiology. No evidence of bradycardia during hospitalization while on Coreg. 3. Status post cardiac transplant maintained on CellCept and Prograf in 2014. PLAN: Continue current medications. Avoid high potassium containing foods as potassium is slightly on the high side. Frequent monitoring of renal function for CKD management. Recommend follow up in about 2 to 3 weeks for CKD as outpatient. MMODL / IJN: [id number] /
[2019-12-02] MEDS: MYCOPHENOLATE MOFETIL 500 MG TAB PO SCH ×2 (12:35→20:45)
[2019-12-02] MEDS: ENVARSUS 4 MG PO SCH (12:36)
[2019-12-02] MEDS: CALCIUM CARB-VIT D 500MG-200UN 1 EACH TAB PO SCH ×2 (12:37→17:18)
[2019-12-02] MEDS: MAGNESIUM OXIDE 400 MG TAB PO SCH ×3 (12:37→20:45)
--- NOTE | 2019-12-02 12:53 | P.HPIM ---
History of Present Illness H&P Date: 12/02/19 Chief Complaint: Syncopal episode This is a 53-year-old female patient of Dr. Liang with history of heart transplant in 2015, paroxysmal atrial fibrillation with prior ablation, hypertension, hyperlipidemia, PE and DVT, history of AICD implantation and removal prior to heart transplant. Patient gives history of being in the shower yesterday and then sat down on the toilet to have a bowel movement. Subsequently she became quite diaphoretic and warm, she had some mild abdominal discomfort, and felt as though she may pass out, shortly thereafter she did pass out for a couple of seconds. She was down on the floor crawled back to her bedroom. She states that she had sweats at the time and was feeling very tired and weak following. denies any seizure activity. She did not have any jerking motions and no incontinence of urine or stools. Patient had follow-up for her heart transplant one month ago Continue and there was mild changes to her antirejection medications due to medication shortage. She has been taking all her medications as instructed. Patient came into [facility] emergency center for evaluation. Blood pressure on arrival 150/90 with a heart rate in the 70s, 99% on room air. Blood pressure this morning 140/80 with a heart rate in the 70s, 97% on room air. White blood cell count 8.9, hemoglobin 13, platelet count 181. Sodium 138, potassium 5.2, BUN 22, creatinine 1.3, magnesium 1.6. Troponins are n egative 2. At the time of my examination this morning, patient is ambulating in the bathroom and back to her bed. She is not experiencing any dizziness or lightheadedness, no palpitations, breathing is stable.patient has been seen by cardiology and echocardiogram ordered. Plan is to monitor overnight and discharged home tomorrow. Review of Systems Constitutional: Reports fatigue, Reports weakness, Denies anorexia, Denies chills, Denies fever, Denies lethargy, Denies malaise, Denies poor appetite, Denies sweats, Denies weight loss Eyes: denies blurred vision, denies pain Ears, nose, mouth and throat: Denies dysphagia, Denies headache, Denies nasal congestion, Denies nasal discharge, Denies sore throat, Denies vertigo Cardiovascular: Reports syncope, Denies chest pain, Denies decreased exercise tolerance, Denies dyspnea on exertion, Denies edema, Denies leg edema, Denies lightheadedness, Denies shortness of breath Respiratory: Denies cough, Denies cough with sputum, Denies dyspnea, Denies excessive sputum, Denies hemoptysis, Denies home oxygen, Denies wheezing Gastrointestinal: Denies abdominal pain, Denies loss of appetite, Denies nausea, Denies vomiting Genitourinary: Denies dysuria, Denies hematuria, Denies urgency, Denies urinary frequency Musculoskeletal: Denies frequent falls, Denies gait dysfunction, Denies muscle weakness, Denies myalgias Integumentary: Denies pruritus, Denies rash Neurological: Reports syncope, Denies change in mentation, Denies change in speech, Denies numbness, Denies vertigo, Denies weakness Psychiatric: Denies anxiety, Denies depression Endocrine: Denies fatigue, Denies weight change Past Medical History Past Medical History: Chest Pain / Angina, Heart Failure, Deep Vein Thrombosis (DVT), Hyperlipidemia, Osteoarthritis (OA), Pneumonia, Pulmonary Embolus (PE) Additional Past Medical History / Comment(s): 05-09-15 ADMITTED TO [facility] WITH CHEST PAIN NEAR SYNCOPAL EPISODE.OTHER HX: 1991 HAD OVERACTIVE THYROID TOOK MEDS X1 YEAR THEN DISCONTINUED, , ANEMIA IN PAST, past hx listed mi-pt unaware of this. past afib per old hx before heart transplant, Last Myocardial Infarction Date:: 04/2014 History of Any Multi-Drug Resistant Organisms: None Reported, MRSA Date of last positivie culture/infection: 01/2015 MDRO Source:: pacemaker Past Surgical History: Ablation, Cardiac Ablation, Heart Catheterization, Tubal Ligation Additional Past Surgical History / Comment(s): 2008 HAS EP STUDIES,CARDAIC ABLATION 1999, had pacemeaker/defibrilator but that was removed when pt had heart transplant -2014 ,CRYOTHERAPY SX FOR HIGH GRADE CELLS (CERVICAL), S/P ICD; Heart Transplant 12/2014 Past Anesthesia/Blood Transfusion Reactions: Motion Sickness, Postoperative Nausea & Vomiting (PONV) Type of Cardiac Device: Permanent Pacemaker, AICD Device Placement Date:: January 13 2014 Past Psychological History: No Psychological Hx Reported Smoking Status: Never smoker Past Alcohol Use History: None Reported Additional Past Alcohol Use History / Comment(s): Patient is a lifelong nonsmoker, no marijuana, illicit drug use or alcohol use. Patient lives at home with her . Past Drug Use History: None Reported - Past Family History Father History Unknown: Yes Additional Family Medical History / Comment(s): Patient does not her father's medical history. Mother Family Medical History: Deep Vein Thrombosis (DVT), Hypertension Additional Family Medical History / Comment(s): Mother is alive at age 78 with history of hypertension, atrial fibrillation, osteoarthritis. Brother(s) Additional Family Medical History / Comment(s): Patient has 1 brother with no major medical problems. Patient has 1 sister with no major medical problems. Patient is 2 daughters with no major medical problems. Medications and Allergies Home Medications Medication Instructions Recorded Confirmed Type Magnesium Oxide [Mag-Ox] 800 mg PO BID 09/06/14 12/01/19 History Ascorbic Acid [Vitamin C] 500 mg PO BID 05/09/15 12/01/19 History Vitamin E (Dl,Tocopheryl Acet) 400 unit PO BID 05/09/15 12/01/19 History [Vitamin E] Calcium Citrate/Vitamin D3 1 tab PO AC-TID 11/07/17 12/01/19 History [Calcitrate + Vit D Caplet] Pravastatin Sodium [Pravachol] 20 mg PO HS 11/07/17 12/07/18 History Carvedilol [Coreg] 3.125 mg PO BID 12/07/18 12/01/19 History Losartan Potassium 100 mg PO HS 12/07/18 12/01/19 History Mycophenolate Mofetil [Cellcept] 500 mg PO BID 12/07/18 12/01/19 History Aspirin 81 mg PO DAILY 12/01/19 12/01/19 History Tacrolimus [Envarsus Xr] 4 mg PO DAILY 12/01/19 12/01/19 History Allergies Allergy/AdvReac Type Severity Reaction Status Date / Time adhesive Allergy Rash/Hives Verified 12/01/19 15:23 meperidine HCl [From Demerol] Allergy Rash/Hives Verified 12/01/19 15:23 Penicillins Allergy Rash/Hives Verified 12/01/19 15:23 Sulfa (Sulfonamide Allergy Rash/Hives Verified 12/01/19 15:23 Antibiotics) Physical Exam Vitals: Vital Signs Temp Pulse Pulse Pulse Resp BP BP 12/02/19 08:00 97.6 F 76 18 145/88 12/02/19 07:50 97.8 F 80 18 161/106 12/02/19 04:00 97.8 F 86 18 12/02/19 00:00 97.0 F L 94 17 12/01/19 20:59 82 18 175/98 12/01/19 20:00 97.8 F 93 93 18 12/01/19 18:00 73 16 173/94 12/01/19 17:00 72 16 174/96 12/01/19 16:00 68 18 12/01/19 15:20 97.8 F 76 18 151/92 BP Pulse Ox 12/02/19 08:00 12/02/19 07:50 97 12/02/19 04:00 131/80 96 12/02/19 00:00 139/89 95 12/01/19 20:59 98 12/01/19 20:00 175/100 95 12/01/19 18:00 100 12/01/19 17:00 99 12/01/19 16:00 12/01/19 15:20 99 Intake and Output 12/01/19 12/02/19 12/02/19 22:59 06:59 14:59 Intake Total 240 Output Total 300 Balance -300 240 Intake: Oral 240 Output: Urine 300 Other: # Voids 1 Weight 93.894 kg 93.1 kg Gen: This is a 53-year-old female. Patient is seen ambulating in her room, gait is steady, no symptoms of lightheadedness or dizziness. HEENT: Head is atraumatic, normocephalic. Pupils equal, round. Sclerae is anicteric. NECK: Supple. No JVD. No lymphadenopathy. No thyromegaly. LUNGS: Clear to auscultation. No wheezes or rhonchi. No intercostal retract ions. HEART: Regular rate and rhythm. No murmur. ABDOMEN: Soft. Bowel sounds are present. No masses. No tenderness. EXTREMITIES: No pedal edema. No calf tenderness. Dorsalis pedis +2 bilaterally. NEUROLOGICAL: Patient is awake, alert and oriented x3. Cranial nerves 2 through 12 are grossly intact. Results CBC & Chem 7: 12/01/19 15:52 12/01/19 15:52 Labs: Abnormal Lab Results - Last 24 Hours (Table) 12/01/19 12/01/19 12/01/19 Range/Units 15:52 15:52 15:52 Eosinophils # 1.0 H (0-0.7) k/uL APTT 21.8 L (22.0-30.0) sec Potassium 5.2 H (3.5-5.1) mmol/L BUN 22 H (7-17) mg/dL Creatinine 1.38 H (0.52-1.04) mg/dL Thrombosis Risk Factor Assmnt - DVT/VTE Prophylaxis DVT/VTE Prophylaxis: Mechanical Prophylaxis ordered - Choose All That Apply Any of the Below Risk Factors Present?: Yes Each Factor Represents 1 point: Age 41-60 years, Obesity (BMI >25) Each Risk Factor Represents 2 Points: Patient confined to bed Each Risk Factor Represents 3 Points: History of DVT/PE Thrombosis Risk Factor Assessment Total Risk Factor Score: 7 Thrombosis Risk Factor Assessment Level: High Risk Assessment and Plan Plan: 1. Syncopal episode most likely secondary to vasovagal response. Orthostatic vital signs, cardiac monitoring for arrhythmias. Cardiology consult appreciated. Echocardiogram has been ordered. 2. Cardiomyopathy status post post heart transplant, stable. Patient is to continue antirejection medications: Tacrolimus 4 mg daily, CellCept 500 mg twice daily, Envarsus XR 4 mg daily. 3. Paroxysmal atrial fibrillation status post ablation, stable. Continue Coreg 3.125 mg twice daily. 4. Hypertension. Continue Coreg and losartan 100 mg at bedtime. 5. Hyperlipidemia. Continue Pravachol. 6. History of pulmonary embolism and DVT. 7. DVT prophylaxis. Early ambulation. Patient will be admitted to the hospital for a minimum of 2 night stay. Discharge plan: Return home on Friday Impression and plan of care have been directed as dictated by the signing physician. Malathi Glez nurse practitioner acting as scribe for signing physician.
--- NOTE | 2019-12-02 20:00 | ECHOF ---
Referral Reason:syncope MEASUREMENTS -------- HEIGHT: 162.6 cm WEIGHT: 93.0 kg BP: IVSd: 1.0 cm (0.6 - 1.1) LVIDd: 4.3 cm (3.9 - 5.3) LVPWd: 1.1 cm (0.6 - 1.1) IVSs: 1.5 cm LVIDs: 2.3 cm LVPWs: 1.9 cm LA Diam: 4.6 cm (2.7 - 3.8) RVIDd: 2.9 cm (< 3.3) LAESV Index (A-L): 33.09 ml/m Ao Diam: 2.5 cm (2.0 - 3.7) LA Diam: 4.8 cm (2.7 - 3.8) AV Cusp: 1.7 cm (1.5 - 2.6) EPSS: 0.3 cm MV E Truong: 1.22 m/s MV DecT: 139 ms MV A Truong: 0.39 m/s MV E/A Ratio: 3.12 RAP: 5.00 mmHg RVSP: 9.56 mmHg MV EF SLOPE: 91.17 mm/s (70 - 150) MV EXCURSION: 18.87 mm (> 18.000) FINDINGS -------- Sinus rhythm. This was a technically good study. LV size, wall thickness and systolic function are normal, with an EF greater than 55%. The left camacho tricular size is normal. The diastolic filling pattern is normal for the age of the patient 12.08. The right ventricle is normal in size. The left atrium is mildly dilated. LA is midly dilated 29-33ml/m2. The right atrial size is normal. The aortic valve is trileaflet, and appears structurally normal. No aortic stenosis or regurgitation. Mild mitral regurgitation is present. Mild tricuspid regurgitation present. Right ventricular systolic pressure is normal at < 35 mmHg. There is no evidence of pulmonary hypertension. There is no pulmonic regurgitation present. The aortic root size is normal. There is no pericardial effusion. CONCLUSIONS -------- 1. Sinus rhythm. 2. This was a technically good study. 3. LV size, wall thickness and systolic function are normal, with an EF greater than 55%. 4. The left ventricular size is normal. 5. The diastolic filling pattern is normal for the age of the patient 12.08 6. The right ventricle is normal in size. 7. The left atrium is mildly dilated. 8. LA is midly dilated 29-33ml/m2. 9. The right atrial size is normal. 10. The aortic valve is trileaflet, and appears structurally normal. No aortic stenosis or regurgitat ion. 11. Mild mitral regurgitation is present. 12. Mild tricuspid regurgitation present. 13. Right ventricular systolic pressure is normal at < 35 mmHg. 14. There is no evidence of pulmonary hypertension. 15. There is no pulmonic regurgitation present. 16. The aortic root size is normal. 17. There is no pericardial effusion. COVERSTITCH ELASTIC ATTACHER: Sandrita Hodges RDCS
[2019-12-02] MEDS: ASCORBIC ACID 500 MG TAB PO SCH (20:45)
[2019-12-02] MEDS: PRAVASTATIN SODIUM 20 MG TAB PO SCH (20:45)
[2019-12-02] MEDS: LOSARTAN 50 MG TAB PO SCH (20:45)
[2019-12-03 00:16] VITALS: RESP 18
[2019-12-03] MEDS: CARVEDILOL 3.125 MG TAB PO SCH (06:16)
[2019-12-03] MEDS: CALCIUM CARB-VIT D 500MG-200UN 1 EACH TAB PO SCH (06:16)
[2019-12-03 07:58] VITALS: TEMP 97.5
[2019-12-03 08:34] LABS: Calcium 9.2 mg/dL (8.4-10.2); Potassium 4.8 mmol/L (3.5-5.1)
[2019-12-03 08:37] VITALS: BP 147/76; PULSE 62
[2019-12-03] MEDS: MYCOPHENOLATE MOFETIL 500 MG TAB PO SCH (08:39)
[2019-12-03] MEDS: ASCORBIC ACID 500 MG TAB PO SCH (08:39)
[2019-12-03] MEDS: MAGNESIUM OXIDE 400 MG TAB PO SCH (08:39)
[2019-12-03] MEDS: ENVARSUS 4 MG PO SCH (08:39)
[2019-12-03] MEDS ORDERED: ASPIRIN 81 MG PO SCH (09:00)
[2019-12-03] MEDS ORDERED: TACROLIMUS 1 MG PO SCH (09:00)
--- NOTE | 2019-12-03 11:41 | P.PN ---
Subjective Progress Note Date: 12/03/19 This is a pleasant 53-year-old female with history of heart transplant in 2015 paroxysmal atrial fibrillation with prior ablation,htn, hyperlipidemia, who overall has been doing very well at home. She states that yesterday she was in the shower, after coming out of the shower she sat down on the toilet have a bowel movement. Subsequently she became quite diaphoretic and warm, she had some mild abdominal discomfort, and felt as though she may pass out, shortly thereafter she did pass out for a couple of seconds. She was down on the floor crawled back to her bedroom. Continue to be mildly diaphoretic, when she cooled down a bit this subsided and the patient felt well. She did have a similar episodes to this back in 2014. Blood pressure on arrival here 150/90 with a heart rate in the 70s, 99% on room air. Blood pressure this morning 140/80 with a heart rate in the 70s, 97% on room air. White blood cell count 8.9, hemoglobin 13, platelet count 181. Sodium 138, potassium 5.2, BUN 22, creatinine 1.3, magnesium 1.6. Troponins are negative 2. At the time of my examination this morning, patient is resting comfortably in bed, denies any dizziness or lightheadedness, no palpitations, breathing is stable. 12/03/2019 Patient was seen and examined this morning, doing well, no dizziness or lightheadedness, no palpitations. Orthostatics were obtained which came back to be negative. Patient had no evidence of any tachycardia or bradycardia arrhythmias on the monitor. Blood pressure 144/80 with a heart rate in the 70s, 96% on room air. Echo cardiac gram with Doppler study revealed a normal left ventricular systolic function. Objective - Vital Signs Vital signs: Vital Signs Temp 97.5 F L 12/03/19 08:00 Pulse 62 12/03/19 08:00 Resp 18 12/03/19 08:00 BP 147/76 12/03/19 08:00 Pulse Ox 97 12/03/19 08:00 Intake & Output 12/02/19 12/03/19 12/03/19 18:59 06:59 18:59 Intake Total 840 240 Output Total 1800 Balance 840 -1800 240 Weight 92.5 kg Intake: Oral 840 240 Output: Urine 1800 Other: Voiding Method Toilet # Voids 0 1 - Exam PHYSICAL EXAMINATION: GENERAL: 53-year-old female in no acute distress at the time of my examination HEENT: Head is atraumatic, normocephalic. Pupils equal, round. Sclera anicteric. Conjunctiva are clear. Mucous membranes of the mouth are moist. Neck is supple. There is no elevated jugular venous pressure. No carotid bruit is heard. HEART EXAMINATION: Heart S1, S2 normal. No murmur or gallop heard. CHEST EXAMINATION: Lungs are clear to auscultation and precussion. No chest wall tenderness is noted on palpation or with deep breathing. ABDOMEN: Soft, nontender. Bowel sounds are heard. No organomegaly noted. EXTREMITIES: 2+ peripheral pulses with no evidence of peripheral edema and no calf tenderness noted. NEUROLOGIC patient is awake, alert and oriented 3 . - Labs CBC & Chem 7: 12/01/19 15:52 12/03/19 07:33 Labs: Abnormal Lab Results - Last 24 Hours (Table) 12/03/19 Range/Units 07:33 BUN 23 H (7-17) mg/dL Creatinine 1.24 H (0.52-1.04) mg/dL Glucose 128 H (74-99) mg/dL Assessment and Plan Plan: Assessment and plan #1 syncope, likely vasovagal in nature #2 history of heart transplant #3 paroxysmal atrial fibrillation status post prior ablation #4 hypertension #5 hyperlipidemia #6 diabetes Plan Echocardiogram with Doppler study revealed a normal left ventricular systolic function. No significant orthostatics. No arrhythmias on the monitor. 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 DNP note has been reviewed, I agree with a documented findings and plan of care. Patient was seen and examined.
--- NOTE | 2019-12-03 11:44 | P.DS ---
Providers Date of admission: 12/01/19 18:19 Expected date of discharge: 12/03/19 Attending physician: Leda Santillan Consults: 12/01/19 18:19 Consult Physician Urgent Consulting Provider: Steve Cao Consult Reason/Comments: kourtney,arrhythmia Do you want consulting provider notified?: Yes 12/01/19 22:32 Consult Physician Urgent Consulting Provider: Grace Gilmore Consult Reason/Comments: ELEVATED BUN, CR Do you want consulting provider notified?: Yes, Notify in am Primary care physician: Azucena Liang [facility] Course: This is a 53-year-old female patient of Dr. Liang with history of heart transplant in 2015, paroxysmal atrial fibrillation with prior ablation, hypertension, hyperlipidemia, PE and DVT, history of AICD implantation and removal prior to heart transplant. Patient gives history of being in the shower yesterday and then sat down on the toilet to have a bowel movement. Subsequently she became quite diaphoretic and warm, she had some mild abdominal discomfort, and felt as though she may pass out, shortly thereafter she did pass out for a couple of seconds. She was down on the floor crawled back to her bedroom. She states that she had sweats at the time and was feeling very tired and weak following. denies any seizure activity. She did not have any jerking motions and no incontinence of urine or stools. Patient had follow-up for her heart transplant one month ago Continue and there was mild changes to her antirejection medications due to medication shortage. She has been taking all her medications as instructed. Patient came into [facility] emergency center for evaluation. Blood pressure on arrival 150/90 with a heart rate in the 70s, 99% on room air. Blood pressure this morning 140/80 with a heart rate in the 70s, 97% on room air. White blood cell count 8.9, hemoglobin 13, platelet count 181. Sodium 138, potassium 5.2, BUN 22, creatinine 1.3, magnesium 1.6. Troponins are negative 2. At the time of my examination this morning, patient is ambulating in the bathroom and back to her bed. She is not experiencing any dizziness or lightheadedness, no palpitations, breathing is stable.patient has been seen by cardiology and echocardiogram ordered. Plan is to monitor overnight and discharged home tomorrow. 12/03: Echocardiogram reveals EF greater than 55%, mild mitral regurgitation, mild tricuspid regurgitation. Patient has been seen by Dr. Gilmore. Recommendations to continue Cozaar and follow up with transplant team monitoring Prograf levels. Avoid all nonsteroidal anti-inflammatory medications and maintain hydration. Patient's Coreg was decreased upon admission to half of her normal dose due to concerns for bradycardia which her related. Heart rate has been in the 60s and 70s and she will be sent home with a prescription for the new dose and to follow-up with her PCP. Patient denies any lightheadedness, dizziness, chest pain, shortness of breath, nausea or vomiting. Repeat blood work reveals potassium 4.8, BUN 23 and creatinine 1.24. Patient will be discharged home today in stable condition. Discharge diagnoses: 1. Syncopal episode most likely secondary to vasovagal response. 2. Cardiomyopathy status post post heart transplant, stable. 3. Paroxysmal atrial fibrillation status post ablation, stable. 4. Hypertension. 5. Hyperlipidemia. 6. History of pulmonary embolism and DVT. 7. Chronic kidney disease stage III Discharge plan: Return home Impression and plan of care have been directed as dictated by the signing physician. Malathi Glez nurse practitioner acting as scribe for signing physician. Patient Condition at Discharge: Good Plan - Discharge Summary New Discharge Prescriptions: New Carvedilol [Coreg] 3.125 mg PO BID-W/MEALS #60 tab Continue Magnesium Oxide [Mag-Ox] 800 mg PO BID Vitamin E (Dl,Tocopheryl Acet) [Vitamin E] 400 unit PO BID Ascorbic Acid [Vitamin C] 500 mg PO BID Calcium Citrate/Vitamin D3 [Calcitrate + Vit D Caplet] 1 tab PO AC-TID Mycophenolate Mofetil [Cellcept] 500 mg PO BID Losartan Potassium 100 mg PO HS Aspirin 81 mg PO DAILY Tacrolimus [Envarsus Xr] 4 mg PO DAILY Tacrolimus [Envarsus Xr] 1 mg PO DAILY Pravastatin Sodium [Pravachol] 40 mg PO HS Discontinued Carvedilol [Coreg] 6.25 mg PO BID Discharge Medication List Magnesium Oxide [Mag-Ox] 800 mg PO BID 09/06/14 [History] Ascorbic Acid [Vitamin C] 500 mg PO BID 05/09/15 [History] Vitamin E (Dl,Tocopheryl Acet) [Vitamin E] 400 unit PO BID 07/28/15 [History] Calcium Citrate/Vitamin D3 [Calcitrate + Vit D Caplet] 1 tab PO AC-TID 11/07/17 [History] Losartan Potassium 100 mg PO HS 12/07/18 [History] Mycophenolate Mofetil [Cellcept] 500 mg PO BID 12/07/18 [History] Aspirin 81 mg PO DAILY 12/01/19 [History] Tacrolimus [Envarsus Xr] 4 mg PO DAILY 12/01/19 [History] Pravastatin Sodium [Pravachol] 40 mg PO HS 12/02/19 [History] Tacrolimus [Envarsus Xr] 1 mg PO DAILY 12/02/19 [History] Carvedilol [Coreg] 3.125 mg PO BID-W/MEALS #60 tab 12/03/19 [Rx] Follow up Appointment(s)/Referral(s): Azucena Liang MD [Primary Care Provider] - 3 Days (Office will call you with a follow up appointment. ) Tony Campos MD [Family Provider] - 10 Days (Office will call you with a follow up appointment. 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 Discharge Disposition: HOME SELF-CARE
--- NOTE | 2019-12-03 17:40 | PN ---
PROGRESS NOTE Patient is seen for followup for chronic kidney disease with an element of acute kidney injury. She is status post cardiac transplant, currently doing very well. Patient was admitted with syncope. Her heart rate was apparently low. Currently it is well maintained, about 60 to 70 beats per minute. PHYSICAL EXAMINATION: On examination this morning, blood pressure was 147/76, heart rate 62 per minute. She is afebrile. EXAMINATION OF THE HEART: S1 and S2. EXAMINATION OF LUNGS: Bilateral breath sounds are heard. ABDOMEN: Soft, non-tender. Examination of lower extremities shows no evidence of edema. LABOR RELATIONS SPECIALIST exam is grossly intact. LABS: Sodium 137, potassium 4.8, chloride 107, BUN 23, creatinine 1.24. UA is completely benign. ASSESSMENT: 1. 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 Renal function close to baseline. Serum creatinine at baseline about 1.2 to 1.3 mg/dL. 2. Possible mild acute kidney injury, mainly prerenal, currently improved. 3. Status post cardiac transplant for cardiomyopathy, currently doing well. 4. Syncope on initial admission. Currently patient is asymptomatic. Her heart rate has not been low. She is being followed by Cardiology. PLAN: Continue current medications. Avoid use of nephrotoxic medications, including NSAIDs, and follow up at [facility]. MMODL / IJN: [id number] /
--- NOTE | 2019-12-06 14:08 | CDI ---
Documentation Clarification Form Date: 12/06/19 From: Nataliia Osullivan Phone: If you have a question about this query, please contact Jeri Prakash, Media Liaison Officer at [phone] between 8am and 5pm. Admit Date: 12/01/19 Discharge Date: 12/03/19 Patient Name: Peggy Rodgers Visit Number: [id number] ATTENTION: The Clinical Documentation Specialists (CDI) and [facility] Coding Staff appreciate your assistance in clarifying documentation. Please respond to the clarification below the line at the bottom and electronically sign. The CDI & [facility] Coding staff will review the response and follow-up if needed. Please note: Queries are made part of the Legal Health Record. If you have any questions, please contact the author of this message via ITS. Dear Dr. Grace Gilmore, CKD is documented in the your consult and PN and DS . History/Risk Factors: DM, HTN, heart failure, s/p heart transplant Patients Historical CR :about 1.3 to 1.4 Clinical Indicators: CKD secondary to chronic use of calcineurin inhibitors post cardiac transplant. Current BUN: 22/23 Current CR: 1.38/1.24 Current GFR: 44/50 Treatment: IV fluids In order to capture the severity of condition, please clarify the stage of the CKD, if known: CKD Stage 1 (GFR > 90) CKD Stage 2 (GFR 60-89) CKD Stage 3 (GFR 30-59) CKD Stage 4 (GFR 15-29) CKD Stage 5 (GFR <15) ESRD Other, please specify Unable to determine stage 2- 3 MTDD
--- NOTE | 2019-12-09 11:44 | CDI ---
Documentation Clarification Form Date: 12/09/19 From: Nataliia Osullivan Phone: If you have a question about this query, please contact Jeri Prakash, Community Service Director at [phone] between 8am and 5pm. Admit Date: 12/01/19 Discharge Date: 12/03/19 Patient Name: Peggy Rodgers Visit Number: [id number] ATTENTION: The Clinical Documentation Specialists (CDI) and [facility] Coding Staff appreciate your assistance in clarifying documentation. Please respond to the clarification below the line at the bottom and electronically sign. The CDI & [facility] Coding staff will review the response and follow-up if needed. Please note: Queries are made part of the Legal Health Record. If you have any questions, please contact the author of this message via ITS. Dear Dr. Shay Jacob, Heart failure is documented in the past medical history in the ED note, H&P and your consult. History/Risk Factors: heart transplant status, syncope, NATALIYA, cardiomyopathy, CKD III, HTN Clinical Indicators: VS/Pulse OX: 97.8, 76,18, 151/92, 99 (RA) BNP: none Echocardiogram Results: EF greater than 55% Chest X Ray: no acute cardiopulmonary process Treatment: Coreg, Losartan potassium 1. In your professional opinion, can you please clarify the acuity and type of CHF if known? TYPE No Heart failure after transplant Systolic Heart Failure Diastolic Heart Failure Systolic & Diastolic Heart Failure ACUITY Acute Chronic Acute on Chronic Heart Failure Unable to Determine Other, please specify 2. Does the patient have cardiomyopathy? HX of cardiomyopathy Cardiomyopathy Unable to determine Other, please specify We did not make the diagnosis of heart failure, please send query to the person who documented heart failure or cardiomyopathy. Thank you. [place]
== END 2019-12-03 10:57 | disposition home or self-care (01) ==
LOC: EC 15:12 → 3SCARD 18:19 → INTOOBSV 18:19 → 3SCARD 19:12 → UNDODISIN 12-03 10:57
PROVIDERS: ADMIT Internal Medicine; ATTEND Internal Medicine
DX: R55 Syncope and collapse (principal); I42.9 Cardiomyopathy, unspecified; Z94.1 Heart transplant status; I48.0 Paroxysmal atrial fibrillation; I10 Essential (primary) hypertension; E78.5 Hyperlipidemia, unspecified; E11.22 Type 2 diabetes mellitus with diabetic chronic kidney disease; N18.3 Chronic kidney disease, stage 3 (moderate); M19.90 Unspecified osteoarthritis, unspecified site; I50.9 Heart failure, unspecified; R00.1 Bradycardia, unspecified; I25.2 Old myocardial infarction; I45.10 Unspecified right bundle-branch block; Z79.899 Other long term (current) drug therapy; Z79.82 Long term (current) use of aspirin; Z86.718 Personal history of other venous thrombosis and embolism; Z86.711 Personal history of pulmonary embolism; Z86.14 Personal history of Methicillin resistant Staphylococcus aureus infection; Z86.39 Personal history of other endocrine, nutritional and metabolic disease; Z87.410 Personal history of cervical dysplasia; Z87.01 Personal history of pneumonia (recurrent); Z86.2 Personal history of diseases of the blood and blood-forming organs and certain disorders involving the immune mechanism; Z98.51 Tubal ligation status; Z88.5 Allergy status to narcotic agent; Z88.0 Allergy status to penicillin; Z91.048 Other nonmedicinal substance allergy status; Z82.61 Family history of arthritis; Z82.49 Family history of ischemic heart disease and other diseases of the circulatory system; Z83.2 Family history of diseases of the blood and blood-forming organs and certain disorders involving the immune mechanism
CPT/HCPCS: 93005 ×2; 99291; 36415; 93306; 80061; 80053; 80048; 83735; 84484 ×2; 85025; 85610; 85730; 81003; 71046; 74176; G0378 ×3; J7517 ×2

== ENCOUNTER → 2020-02-15 | Outpatient (CLI) | payer MEDICARE ==
[2020-02-15 11:47] LABS: Basophils # (A) 0.1 k/uL (0-0.2); Basophils % (A) 1 %; Eosinophils # (A) 0.9 k/uL (0-0.7); Eosinophils % (A) 17 %; HCT 40.4 % (34.0-46.0); HGB 12.5 gm/dL (11.4-16.0); Hypochromasia Slight; Lymphocytes # (A) 1.2 k/uL (1.0-4.8); Lymphocytes % (A) 21 %; MCH 28.3 pg (25.0-35.0); MCHC 30.9 g/dL (31.0-37.0); MCV 91.6 fL (80.0-100.0); Monocytes # (A) 0.3 k/uL (0-1.0); Monocytes % (A) 6 %; Neutrophils # (A) 2.9 k/uL (1.3-7.7); Neutrophils % (A) 53 %; Platelet Count 204 k/uL (150-450); RBC 4.41 m/uL (3.80-5.40); RDW 13.4 % (11.5-15.5); WBC 5.5 k/uL (3.8-10.6)
[2020-02-15 16:00] LABS: ALT 17 U/L (8-44); AST 23 U/L (13-35); African American GFR (CKD) 45.3 (60.0-200.0); Albumin/Globulin Ratio 1.83 (1.60-3.17); Alkaline Phosphatase 66 U/L (41-126); Calcium 9.6 mg/dL (8.7-10.3); Carbon Dioxide 22.6 mmol/L (21.6-31.8); Chloride 109 mmol/L (96-109); Chol/HDL Ratio 1.97; Cholesterol 128 mg/dL (0-200); Creatine Kinase 81 U/L (26-186); Globulin 2.3 g/dL (1.6-3.3); Glucose 99 mg/dL (70-110); Magnesium 1.4 mg/dL (1.5-2.4); Non-African American GFR(CKD) 39.1 (60.0-200.0); Potassium 5.5 mmol/L (3.5-5.5); Sodium 142 mmol/L (135-145); Total Bilirubin 0.6 mg/dL (0.3-1.2); Total Protein 6.5 g/dL (6.2-8.2); Triglycerides <50.0 mg/dL (0.0-149.0)
== END | disposition home or self-care (01) ==
LOC: LABWHC1 10:45
PROVIDERS: ATTEND Internal Medicine
DX: I50.30 Unspecified diastolic (congestive) heart failure (principal); E78.2 Mixed hyperlipidemia; T86.290 Cardiac allograft vasculopathy; T86.22 Heart transplant failure; T86.23 Heart transplant infection; T86.21 Heart transplant rejection; T86.20 Unspecified complication of heart transplant; Z94.1 Heart transplant status
CPT/HCPCS: 36415; 80053; 80061; 82550; 83735; 83880; 84550; 85025

== ENCOUNTER → 2020-03-21 | Outpatient (CLI) | payer MEDICARE ==
[2020-03-21 10:52] LABS: Basophils # (A) 0.1 k/uL (0-0.2); Basophils % (A) 1 %; Eosinophils # (A) 0.8 k/uL (0-0.7); Eosinophils % (A) 18 %; HCT 40.7 % (34.0-46.0); HGB 12.7 gm/dL (11.4-16.0); Lymphocytes # (A) 1.1 k/uL (1.0-4.8); Lymphocytes % (A) 24 %; MCH 28.1 pg (25.0-35.0); MCHC 31.3 g/dL (31.0-37.0); MCV 89.9 fL (80.0-100.0); Mean Platelet Volume 8.2; Monocytes # (A) 0.4 k/uL (0-1.0); Monocytes % (A) 9 %; Neutrophils # (A) 2.1 k/uL (1.3-7.7); Neutrophils % (A) 45 %; Platelet Count 182 k/uL (150-450); RBC 4.53 m/uL (3.80-5.40); RDW 13.3 % (11.5-15.5); WBC 4.6 k/uL (3.8-10.6)
[2020-03-21 17:21] LABS: African American GFR (CKD) 49.2 (60.0-200.0); Anion Gap 7.6 mmol/L (4.00-12.00); BUN/Creat Ratio 17.14 Ratio (12.00-20.00); Calcium 9.7 mg/dL (8.7-10.3); Carbon Dioxide 25.4 mmol/L (21.6-31.8); Non-African American GFR(CKD) 42.5 (60.0-200.0); Potassium 5.4 mmol/L (3.5-5.5)
== END | disposition home or self-care (01) ==
LOC: LABWHC1 09:33
PROVIDERS: ATTEND Internal Medicine
DX: I50.30 Unspecified diastolic (congestive) heart failure (principal); E78.2 Mixed hyperlipidemia; T86.20 Unspecified complication of heart transplant; T86.21 Heart transplant rejection; T86.22 Heart transplant failure; T86.23 Heart transplant infection; T86.290 Cardiac allograft vasculopathy
CPT/HCPCS: 36415; 80048; 85025

== ENCOUNTER → 2020-04-20 | Outpatient (CLI) | payer MEDICARE ==
--- NOTE | 2020-04-20 14:49 | XR ---
EXAMINATION TYPE: XR foot complete RT DATE OF EXAM: 04/20/2020 COMPARISON: NONE HISTORY: 54-year-old female with lateral right foot pain after fall TECHNIQUE: 3 views FINDINGS: Tiny os peroneum. No acute fracture, subluxation, or dislocation. Tiny plantar calcaneal spur. IMPRESSION: No acute osseous abnormality seen.
== END | disposition home or self-care (01) ==
LOC: RADXRMAIN 14:28
PROVIDERS: ATTEND Internal Medicine
DX: M79.671 Pain in right foot (principal)

== ENCOUNTER 2020-05-21 19:41 | Emergency (ER) | payer MEDICARE ==
[2020-05-21 19:51] VITALS: RESP 18; TEMP 98.3
[2020-05-21] MEDS ORDERED: FLUORESCEIN STRIPS 1 MG STRIP RIGHT EYE ONE (20:22)
[2020-05-21] MEDS ORDERED: PROPARACAINE 0.5% OPHTH DROPS 15 ML BTL RIGHT EYE STA (20:22)
[2020-05-21] MEDS ORDERED: ACETAMINOPHEN TAB 325 MG TAB PO STA (21:00)
--- NOTE | 2020-05-21 21:03 | ED ---
Eye Problem HPI - General Chief complaint: Eye Problems Stated complaint: Eye Injury Time Seen by Provider: 05/21/20 20:04 Source: patient Mode of arrival: ambulatory Limitations: no limitations - History of Present Illness Initial comments: Patient is a 54-year-old female presenting to the emergency Department with complaints of an injury to her right eye. Patient states she hit her eye on a piece of the garage door that was hanging down. Patient states her eye has been watering since the injury. She has some redness on the outside part of her eye. She denies any loss of consciousness, blurry vision, lightheadedness. She denies wearing contacts. She denies any changes in her vision. She has no further complaints at this time. - Related Data Home Medications Medication Instructions Recorded Confirmed Magnesium Oxide [Mag-Ox] 800 mg PO BID 09/06/14 12/01/19 Ascorbic Acid [Vitamin C] 500 mg PO BID 05/09/15 12/01/19 Vitamin E (Dl,Tocopheryl Acet) 400 unit PO BID 05/09/15 12/01/19 [Vitamin E] Calcium Citrate/Vitamin D3 1 tab PO AC-TID 11/07/17 12/01/19 [Calcitrate + Vit D Caplet] Losartan Potassium 100 mg PO HS 12/07/18 12/01/19 Mycophenolate Mofetil [Cellcept] 500 mg PO BID 12/07/18 12/01/19 Aspirin 81 mg PO DAILY 12/01/19 12/01/19 Tacrolimus [Envarsus Xr] 4 mg PO DAILY 12/01/19 12/01/19 Pravastatin Sodium [Pravachol] 40 mg PO HS 12/02/19 12/02/19 Tacrolimus [Envarsus Xr] 1 mg PO DAILY 12/02/19 12/02/19 Previous Rx's Medication Instructions Recorded carvediloL [Coreg] 3.125 mg PO BID-W/MEALS #60 tab 12/03/19 Erythromycin Ophth Oint [Romycin 1 applic RIGHT EYE QID 5 Days #1 05/21/20 Ophth Oint] tube Allergies Allergy/AdvReac Type Severity Reaction Status Date / Time adhesive Allergy Rash/Hives Verified 05/21/20 19:51 meperidine HCl [From Demerol] Allergy Rash/Hives Verified 05/21/20 19:51 Penicillins Allergy Rash/Hives Verified 05/21/20 19:51 Sulfa (Sulfonamide Allergy Rash/Hives Verified 05/21/20 19:51 Antibiotics) Review of Systems ROS Statement: Those systems with pertinent positive or pertinent negative responses have been documented in the HPI. ROS Other: All systems not noted in ROS Statement are negative. Past Medical History Past Medical History: Chest Pain / Angina, Heart Failure, Deep Vein Thrombosis (DVT), Hyperlipidemia, Osteoarthritis (OA), Pneumonia, Pulmonary Embolus (PE) Additional Past Medical History / Comment(s): 05-09-15 ADMITTED TO [facility] WITH CHEST PAIN NEAR SYNCOPAL EPISODE.OTHER HX: 1991 HAD OVERACTIVE THYROID TOOK MEDS X1 YEAR THEN DISCONTINUED, , ANEMIA IN PAST, past hx listed mi-pt unaware of this. past afib per old hx before heart transplant, Last Myocardial Infarction Date:: 04/2014 History of Any Multi-Drug Resistant Organisms: None Reported, MRSA Date of last positivie culture/infection: 01/2015 MDRO Source:: pacemaker Past Surgical History: Ablation, Cardiac Ablation, Heart Catheterization, Tubal Ligation Additional Past Surgical History / Comment(s): 2008 HAS EP STUDIES,CARDAIC ABLATION 1999, had pacemeaker/defibrilator but that was removed when pt had heart transplant -2014 ,CRYOTHERAPY SX FOR HIGH GRADE CELLS (CERVICAL), S/P ICD; Heart Transplant 12/2014 Past Anesthesia/Blood Transfusion Reactions: Motion Sickness, Postoperative Nausea & Vomiting (PONV) Type of Cardiac Device: Permanent Pacemaker, AICD Device Placement Date:: January 13 2014 Past Psychological History: No Psychological Hx Reported Smoking Status: Never smoker Past Alcohol Use History: None Reported Past Drug Use History: None Reported - Past Family History Brother(s) Additional Family Medical History / Comment(s): Patient has 1 brother with no major medical problems. Patient has 1 sister with no major medical problems. Patient is 2 daughters with no major medical problems. Father History Unknown: Yes Additional Family Medical History / Comment(s): Patient does not her father's medical history. Mother Family Medical History: Deep Vein Thrombosis (DVT), Hypertension Additional Family Medical History / Comment(s): Mother is alive at age 78 with history of hypertension, atrial fibrillation, osteoarthritis. General Exam - General Exam Comments Initial Comments: GENERAL: Patient is well-developed and well-nourished. Patient is nontoxic and in no acute distress. HEAD: Atraumatic, normocephalic. EYES: Pupils equal round and reactive to light, extraocular movements intact, sclera anicteric. Eyelids were unremarkable. Right eye is injected in the lateral aspect, there is an abrasion noted at the lateral aspect as well. No foreign body seen. ENT: TMs normal, nares patent, oropharynx clear without exudates. Moist mucous membranes. NECK: Normal range of motion, supple without lymphadenopathy or JVD. LUNGS: Unlabored respirations. Breath sounds clear to auscultation bilaterally and equal. No wheezes rales or rhonchi. HEART: Regular rate and rhythm without murmurs, rubs or gallops. ABDOMEN: Soft, nontender, normoactive bowel sounds. No guarding, no rebound. No masses appreciated. : Deferred MUSCULOSKELETAL: Normal extremities with adequate strength and normal range of motion, no pitting or edema. No clubbing or cyanosis. NEUROLOGICAL: Normal speech, normal gait. PSYCH: Normal mood, normal affect. SKIN: Warm, Dry, normal turgor, no rashes or lesions noted. Limitations: no limitations Course Vital Signs 05/21/20 05/21/20 19:46 21:14 Temperature 98.3 F Pulse Rate 70 90 Respiratory 18 18 Rate Blood Pressure 181/107 176/90 O2 Sat by Pulse 99 100 Oximetry Medical Decision Making - Medical Decision Making Patient is a 54-year-old female here after a right eye injury approximately 2 hours prior to arrival. She denies any blurry vision, loss of consciousness, headache, dizziness. On exam with fluorescein stain, patient has a corneal abrasion on the lateral aspect of her right eye, mild redness to the lateral aspect of the eye as well. Visual acuity is normal. I did put a few drops upper prior chain in the right eye which did improve her symptoms. Patient will be started on erythromycin ointment for corneal abrasion. She will also follow up with ophthalmology. She is in agreement with this plan of care and is stable for discharge. Return parameters were discussed with the patient she verbalized understanding. Disposition Clinical Impression: Corneal abrasion, right Disposition: HOME SELF-CARE Condition: Stable Instructions (If sedation given, give patient instructions): Corneal Abrasion (ED) Additional Instructions: Please return to the Emergency Department if symptoms worsen or any other concerns. Use antibiotic ointment as discussed. May continue with Tylenol as needed for pain. Follow up with ophthalmology. Prescriptions: Erythromycin Ophth Oint [Romycin Ophth Oint] 1 applic RIGHT EYE QID 5 Days #1 tube Is patient prescribed a controlled substance at d/c from ED?: No Referrals: Azucena Liang MD [Primary Care Provider] - 1-2 days Jamil Dsouza MD [STAFF PHYSICIAN] - 1-2 days
[2020-05-21 21:18] VITALS: BP 176/90; PULSE 90
== END 2020-05-21 21:18 | disposition home or self-care (01) ==
LOC: EC 19:41
DX: S05.01XA Injury of conjunctiva and corneal abrasion without foreign body, right eye, initial encounter (principal); I50.9 Heart failure, unspecified; E78.5 Hyperlipidemia, unspecified; Z86.718 Personal history of other venous thrombosis and embolism; Z86.711 Personal history of pulmonary embolism; Z79.899 Other long term (current) drug therapy; Z79.82 Long term (current) use of aspirin; Z91.048 Other nonmedicinal substance allergy status; Z88.0 Allergy status to penicillin; Z88.2 Allergy status to sulfonamides; Z88.5 Allergy status to narcotic agent; Z94.1 Heart transplant status; Z95.0 Presence of cardiac pacemaker; W20.8XXA Other cause of strike by thrown, projected or falling object, initial encounter
CPT/HCPCS: 99283

== ENCOUNTER → 2020-06-05 | Outpatient (CLI) | payer MEDICARE ==
[2020-06-05 09:05] LABS: Basophils # (A) 0.1 k/uL (0-0.2); Basophils % (A) 1 %; Eosinophils # (A) 0.4 k/uL (0-0.7); Eosinophils % (A) 7 %; HCT 38.9 % (34.0-46.0); HGB 12.7 gm/dL (11.4-16.0); Lymphocytes # (A) 1.8 k/uL (1.0-4.8); Lymphocytes % (A) 34 %; MCH 28.7 pg (25.0-35.0); MCHC 32.5 g/dL (31.0-37.0); MCV 88.2 fL (80.0-100.0); Monocytes # (A) 0.3 k/uL (0-1.0); Monocytes % (A) 6 %; Neutrophils # (A) 2.6 k/uL (1.3-7.7); Neutrophils % (A) 49 %; Platelet Count 162 k/uL (150-450); RBC 4.41 m/uL (3.80-5.40); RDW 13.7 % (11.5-15.5); WBC 5.4 k/uL (3.8-10.6)
[2020-06-05 15:36] LABS: African American GFR (CKD) 38.9 (60.0-200.0); Albumin 4.3 g/dL (3.80-4.90); Albumin/Globulin Ratio 1.72 (1.60-3.17); Anion Gap 11.1 mmol/L (4.00-12.00); BUN/Creat Ratio 21.76 Ratio (12.00-20.00); Calcium 9.7 mg/dL (8.7-10.3); Carbon Dioxide 22.9 mmol/L (21.6-31.8); Globulin 2.5 g/dL (1.6-3.3); Magnesium 1.5 mg/dL (1.5-2.4); Non-African American GFR(CKD) 33.6 (60.0-200.0); Potassium 4.8 mmol/L (3.5-5.5); Total Bilirubin 0.6 mg/dL (0.3-1.2); Total Protein 6.8 g/dL (6.2-8.2)
== END | disposition home or self-care (01) ==
LOC: LABWHC1 08:21
PROVIDERS: ATTEND Internal Medicine
DX: E78.2 Mixed hyperlipidemia (principal); I50.30 Unspecified diastolic (congestive) heart failure; T86.290 Cardiac allograft vasculopathy; T86.23 Heart transplant infection; T86.22 Heart transplant failure; T86.21 Heart transplant rejection; T86.20 Unspecified complication of heart transplant
CPT/HCPCS: 36415; 80053; 82550; 83735; 85025

== ENCOUNTER → 2020-08-15 | Outpatient (CLI) | payer MEDICARE ==
[2020-08-15 12:29] LABS: Basophils # (A) 0.1 k/uL (0-0.2); Basophils % (A) 1 %; Eosinophils # (A) 0.3 k/uL (0-0.7); Eosinophils % (A) 6 %; HCT 42.4 % (34.0-46.0); HGB 13.5 gm/dL (11.4-16.0); Lymphocytes # (A) 1.3 k/uL (1.0-4.8); Lymphocytes % (A) 24 %; MCH 29.4 pg (25.0-35.0); MCHC 31.8 g/dL (31.0-37.0); MCV 92.3 fL (80.0-100.0); Mean Platelet Volume 7.4; Monocytes # (A) 0.4 k/uL (0-1.0); Monocytes % (A) 7 %; Neutrophils # (A) 3.3 k/uL (1.3-7.7); Neutrophils % (A) 60 %; Platelet Count 170 k/uL (150-450); RBC 4.59 m/uL (3.80-5.40); WBC 5.4 k/uL (3.8-10.6)
[2020-08-15 22:43] LABS: African American GFR (CKD) 41.9 (60.0-200.0); BUN/Creat Ratio 14.38 Ratio (12.00-20.00); Calcium 9.6 mg/dL (8.7-10.3); Non-African American GFR(CKD) 36.2 (60.0-200.0); Potassium 5.3 mmol/L (3.5-5.5)
== END | disposition home or self-care (01) ==
LOC: LABWHC1 09:44
PROVIDERS: ATTEND Internal Medicine
DX: E78.2 Mixed hyperlipidemia (principal); T86.20 Unspecified complication of heart transplant; T86.21 Heart transplant rejection; T86.22 Heart transplant failure; T86.23 Heart transplant infection; T86.290 Cardiac allograft vasculopathy; I50.30 Unspecified diastolic (congestive) heart failure
CPT/HCPCS: 36415; 80048; 85025

== ENCOUNTER → 2020-11-02 | Outpatient (CLI) | payer MEDICARE ==
[2020-11-02 10:00] LABS: Basophils # (A) 0.1 k/uL (0-0.2); Basophils % (A) 1 %; Eosinophils # (A) 0.4 k/uL (0-0.7); Eosinophils % (A) 6 %; HCT 40.9 % (34.0-46.0); HGB 13.6 gm/dL (11.4-16.0); Lymphocytes # (A) 1.7 k/uL (1.0-4.8); Lymphocytes % (A) 29 %; MCH 29.1 pg (25.0-35.0); MCHC 33.3 g/dL (31.0-37.0); MCV 87.5 fL (80.0-100.0); Mean Platelet Volume 7.3; Monocytes # (A) 0.5 k/uL (0-1.0); Monocytes % (A) 8 %; Neutrophils # (A) 3.1 k/uL (1.3-7.7); Neutrophils % (A) 53 %; Platelet Count 192 k/uL (150-450); RBC 4.67 m/uL (3.80-5.40); WBC 5.8 k/uL (3.8-10.6)
[2020-11-02 16:49] LABS: African American GFR (CKD) 41.9 (60.0-200.0); Albumin 4.6 g/dL (3.80-4.90); Albumin/Globulin Ratio 2.09 (1.60-3.17); Anion Gap 10.7 mmol/L (4.00-12.00); BUN/Creat Ratio 21.25 Ratio (12.00-20.00); Calcium 9.8 mg/dL (8.7-10.3); Carbon Dioxide 25.3 mmol/L (21.6-31.8); Globulin 2.2 g/dL (1.6-3.3); Magnesium 1.7 mg/dL (1.5-2.4); Non-African American GFR(CKD) 36.2 (60.0-200.0); Total Bilirubin 0.6 mg/dL (0.2-1.2); Total Protein 6.8 g/dL (6.2-8.2)
== END | disposition home or self-care (01) ==
LOC: LABWHC1 09:09
PROVIDERS: ATTEND Internal Medicine
DX: E78.2 Mixed hyperlipidemia (principal); I50.30 Unspecified diastolic (congestive) heart failure; T86.21 Heart transplant rejection; T86.290 Cardiac allograft vasculopathy; T86.23 Heart transplant infection; T86.22 Heart transplant failure; T86.20 Unspecified complication of heart transplant
CPT/HCPCS: 36415; 80053; 80197; 82550; 83735; 83880; 85025

== ENCOUNTER → 2020-11-15 | Outpatient (CLI) | payer MEDICARE ==
--- NOTE | 2020-11-15 17:52 | US ---
EXAMINATION TYPE: US kidneys/renal and bladder DATE OF EXAM: 11/15/2020 COMPARISON: CT 12/01/19 CLINICAL HISTORY: N18.31 Chronic Kidney Disease, stage 3B. EXAM MEASUREMENTS: Right Kidney: 9.0 x 5.0 x 4.6 cm Left Kidney: 9.4 x 4.6 x 3.8 cm Post Void Residual Volume: 0 mL Right Kidney: Small in size. No hydronephrosis or masses seen Left Kidney: Small in size. No hydronephrosis or masses seen Bladder: wnl Bilateral Jets seen: Yes Normal Post Void Residual: Yes IMPRESSION: 1. Normal renal ultrasound
== END | disposition home or self-care (01) ==
LOC: RADUSWWP 14:56
PROVIDERS: ATTEND Internal Medicine
DX: N18.31 Chronic kidney disease, stage 3a (principal)
CPT/HCPCS: 76770

== ENCOUNTER → 2020-12-25 | Outpatient (CLI) | payer MEDICARE ==
--- NOTE | 2020-12-25 16:16 | BD ---
EXAMINATION TYPE: Axial Bone Density DATE OF EXAM: 12/25/2020 COMPARISON: NONE CLINICAL HISTORY: 54 YR OLD FEMALE.....ICD-10 CODE: M81.0 OSTEOPOROSIS Height: 64.2 Weight: 204 FRAX RISK QUESTIONS: NOTHING TO NOTE HERE RISK FACTORS HISTORY OF: Postmenopausal woman: YES, AT 49 YRS OLD Hyperparathyroidism: NO Adrenal Insufficiency: NO MEDICATIONS: Additional Medications: STATIN FOR CHOLESTEROL, CALCIUM AND VITAMIN D, ANTI REJECTION MEDS, VIT C, E , RALPH, BABY ASPIRIN Additional History: HEART TRANSPLANT AT 49 YRS OLD, CHOLESTEROL, , EXAM MEASUREMENTS: Bone mineral densitometry was performed using the EXFO System. Bone mineral density as measured about the Lumbar spine is: ----- L1-L4(G/cm2): 1.170 T Score Values are as follows: ----- L1: -1.2 ----- L2: -0.3 ----- L3: 0.6 ----- L4: 0.3 ----- L1-L4: -0.1 Bone mineral density FIRST DEXA STUDY AT [facility] Bone mineral density about the R hip (g/cm2): 0.994 Bone mineral density about the L hip (g/cm2): 1.068 T Score values are as follows: -----R Neck: -1.2 -----L Neck: -0.9 -----R Total: -0.1 -----L Total: 0.5 Bone mineral density FIRST DEXA STUDY AT [facility] FRAX%S: THERE IS A 5.6% CHANCE FOR A MAJOR OSTEOPOROTIC FX AND A 0.3% FOR HIP.....PROBABILITY FOR FX IN 10 YRS TIME IMPRESSION: Osteopenia (T Score between -2.5 and -1). There is slightly increased risk of fracture and the patient may be considered for treatment. Re-Screen 2-5 years. NOTE: T-SCORE=SD OF THE YOUNG ADULT MEAN.
--- NOTE | 2020-12-27 11:55 | MM ---
Reason for exam: screening (asymptomatic). Last mammogram was performed 3 years ago. History: Patient is postmenopausal. Benign MG stereo VAD BX RT of the right breast, May 31, 2014. Physical Findings: A clinical breast exam by your physician is recommended on an annual basis and results should be correlated with mammographic findings. MG 3D Screening Mammo W/Cad Bilateral CC and MLO view(s) were taken. Prior study comparison: December 23, 2017, bilateral MG screening mammo w CAD. November 18, 2016, bilateral MG 3d screening mammo w/cad. Finding: There are typically benign diffuse/scattered, regional, fine calcifications in both breasts. There is a chronic nodularity in the left breast. No significant changes in finding since December 23, 2017 and November 18, 2016. ASSESSMENT: Benign, BI-RAD 2 RECOMMENDATION: Routine screening mammogram of both breasts in 1 year.
== END ==
LOC: RADMAMWWP 13:29
PROVIDERS: ATTEND Internal Medicine
DX: Z12.31 Encounter for screening mammogram for malignant neoplasm of breast (principal); M85.851 Other specified disorders of bone density and structure, right thigh; Z78.0 Asymptomatic menopausal state
CPT/HCPCS: 77063; 77067; 77080

== ENCOUNTER → 2021-01-01 | Outpatient (CLI) | payer MEDICARE ==
[2021-01-01 15:10] LABS: Basophils # (A) 0.05 X 10*3/uL (0.00-0.10); Eosinophils # (A) 0.37 X 10*3/uL (0.04-0.35); Eosinophils % (A) 7.6 %; HCT 35.8 % (37.2-46.3); HGB 11.8 g/dL (12.0-15.0); Lymphocytes # (A) 1.19 X 10*3/uL (0.90-5.00); Lymphocytes % (A) 24.4 %; MCH 28.8 pg (27.0-32.0); MCV 87.3 fL (80.0-97.0); Mean Platelet Volume 10.8 fL (9.5-12.2); Monocytes # (A) 0.49 X 10*3/uL (0.20-1.00); Monocytes % (A) 10.1 %; Neutrophils # (A) 2.76 X 10*3/uL (1.80-7.70); Neutrophils % (A) 56.7 %; Platelet Count 192 X 10*3/uL (140-440); RDW 12.6 % (11.5-14.5); WBC 4.87 X 10*3/uL (4.50-10.00)
[2021-01-01 15:51] LABS: ALT 18 U/L (8-44); AST 24 U/L (13-35); Albumin/Globulin Ratio 1.95 (1.60-3.17); Alkaline Phosphatase 67 U/L (41-126); Calcium 9.8 mg/dL (8.7-10.3); Carbon Dioxide 24.2 mmol/L (21.6-31.8); Chloride 107 mmol/L (96-109); Chol/HDL Ratio 2.52; Cholesterol 141 mg/dL (0-200); Creatine Kinase 141 U/L (26-186); Globulin 2.2 g/dL (1.6-3.3); Glucose 102 mg/dL (70-110); Magnesium 1.6 mg/dL (1.5-2.4); Non-African American GFR(CKD) 38.8 (60.0-200.0); Potassium 4.8 mmol/L (3.5-5.5); Sodium 139 mmol/L (135-145); Total Bilirubin 0.7 mg/dL (0.2-1.2); Total Protein 6.5 g/dL (6.2-8.2); Triglycerides <50.0 mg/dL (0.0-149.0)
== END | disposition home or self-care (01) ==
LOC: LABWHC1 10:17
PROVIDERS: ATTEND Internal Medicine
DX: I11.0 Hypertensive heart disease with heart failure (principal); E78.2 Mixed hyperlipidemia; I50.30 Unspecified diastolic (congestive) heart failure; T86.20 Unspecified complication of heart transplant; T86.21 Heart transplant rejection; T86.22 Heart transplant failure; T86.23 Heart transplant infection; T86.290 Cardiac allograft vasculopathy
CPT/HCPCS: 36415; 80053; 80061; 82550; 83735; 83880; 84443; 85025

== ENCOUNTER → 2021-01-23 | Outpatient (CLI) | payer MEDICARE ==
[2021-01-23 11:49] LABS: Basophils # (A) 0.1 k/uL (0-0.2); Basophils % (A) 1 %; Eosinophils # (A) 0.5 k/uL (0-0.7); Eosinophils % (A) 8 %; HCT 39.2 % (34.0-46.0); HGB 13.5 gm/dL (11.4-16.0); Lymphocytes # (A) 1.3 k/uL (1.0-4.8); Lymphocytes % (A) 23 %; MCH 29.3 pg (25.0-35.0); MCHC 34.4 g/dL (31.0-37.0); MCV 85.2 fL (80.0-100.0); Mean Platelet Volume 7.5; Monocytes # (A) 0.4 k/uL (0-1.0); Monocytes % (A) 7 %; Neutrophils # (A) 3.4 k/uL (1.3-7.7); Neutrophils % (A) 60 %; Platelet Count 207 k/uL (150-450); RDW 12.7 % (11.5-15.5); WBC 5.6 k/uL (3.8-10.6)
[2021-01-23 12:00] LABS: African American GFR (CKD) 43 (>60 ml/min/1.73 sqM); Anion Gap 8 mmol/L; Blood Urea Nitrogen 29 mg/dL (7-17); Calcium 9.7 mg/dL (8.4-10.2); Carbon Dioxide 26 mmol/L (22-30); Chloride 104 mmol/L (98-107); Glucose 96 mg/dL (74-99); Non-African American GFR(CKD) 37 (>60 ml/min/1.73 sqM); Potassium 4.9 mmol/L (3.5-5.1); Sodium 138 mmol/L (137-145)
== END | disposition home or self-care (01) ==
LOC: LABWHC1 10:09
PROVIDERS: ATTEND Internal Medicine
DX: T86.21 Heart transplant rejection (principal); T86.22 Heart transplant failure; T86.23 Heart transplant infection; T86.290 Cardiac allograft vasculopathy; E78.2 Mixed hyperlipidemia
CPT/HCPCS: 36415; 80048; 85025

== ENCOUNTER → 2021-03-28 | Outpatient (CLI) | payer MEDICARE ==
[2021-03-28 17:46] LABS: Basophils # (A) 0.05 X 10*3/uL (0.00-0.10); Basophils % (A) 0.8 %; Eosinophils # (A) 0.42 X 10*3/uL (0.04-0.35); Eosinophils % (A) 6.8 %; HCT 35.9 % (37.2-46.3); Lymphocytes # (A) 1.59 X 10*3/uL (0.90-5.00); Lymphocytes % (A) 25.7 %; MCH 29.3 pg (27.0-32.0); MCHC 33.4 g/dL (32.0-37.0); MCV 87.6 fL (80.0-97.0); Mean Platelet Volume 11.2 fL (9.5-12.2); Monocytes # (A) 0.62 X 10*3/uL (0.20-1.00); Neutrophils # (A) 3.49 X 10*3/uL (1.80-7.70); Neutrophils % (A) 56.4 %; Platelet Count 192 X 10*3/uL (140-440); RDW 12.6 % (11.5-14.5); WBC 6.19 X 10*3/uL (4.50-10.00)
[2021-03-28 23:11] LABS: African American GFR (CKD) 48.9 (60.0-200.0); Albumin 4.2 g/dL (3.80-4.90); Albumin/Globulin Ratio 1.68 (1.60-3.17); Anion Gap 8.5 mmol/L (4.00-12.00); BUN/Creat Ratio 22.14 Ratio (12.00-20.00); Calcium 9.2 mg/dL (8.7-10.3); Carbon Dioxide 20.5 mmol/L (21.6-31.8); Globulin 2.5 g/dL (1.6-3.3); Magnesium 1.6 mg/dL (1.5-2.4); Non-African American GFR(CKD) 42.2 (60.0-200.0); Potassium 4.7 mmol/L (3.5-5.5); Total Bilirubin 0.5 mg/dL (0.2-1.2); Total Protein 6.7 g/dL (6.2-8.2)
== END | disposition home or self-care (01) ==
LOC: LABWHC1 09:17
PROVIDERS: ATTEND Internal Medicine
DX: E78.2 Mixed hyperlipidemia (principal); I50.30 Unspecified diastolic (congestive) heart failure; T86.21 Heart transplant rejection; T86.22 Heart transplant failure; T86.23 Heart transplant infection; T86.290 Cardiac allograft vasculopathy
CPT/HCPCS: 36415; 80053; 82550; 83735; 85025

== ENCOUNTER → 2021-05-17 | Outpatient (CLI) | payer MEDICARE ==
[2021-05-17 14:52] LABS: Basophils # (A) 0.05 X 10*3/uL (0.00-0.10); Basophils % (A) 0.9 %; Eosinophils # (A) 0.31 X 10*3/uL (0.04-0.35); Eosinophils % (A) 5.6 %; HCT 37.7 % (37.2-46.3); Lymphocytes # (A) 1.29 X 10*3/uL (0.90-5.00); Lymphocytes % (A) 23.4 %; MCH 28.5 pg (27.0-32.0); MCHC 31.8 g/dL (32.0-37.0); MCV 89.5 fL (80.0-97.0); Mean Platelet Volume 11.1 fL (9.5-12.2); Monocytes # (A) 0.58 X 10*3/uL (0.20-1.00); Monocytes % (A) 10.5 %; Neutrophils # (A) 3.27 X 10*3/uL (1.80-7.70); Neutrophils % (A) 59.4 %; Platelet Count 200 X 10*3/uL (140-440); RBC 4.21 X 10*6/uL (4.10-5.20); RDW 13.1 % (11.5-14.5); WBC 5.51 X 10*3/uL (4.50-10.00)
[2021-05-17 17:24] LABS: ALT 16 U/L (8-44); AST 26 U/L (13-35); African American GFR (CKD) 48.9 (60.0-200.0); Albumin/Globulin Ratio 1.65 (1.60-3.17); Alkaline Phosphatase 57 U/L (41-126); BUN/Creat Ratio 16.43 Ratio (12.00-20.00); Calcium 8.9 mg/dL (8.7-10.3); Carbon Dioxide 23.7 mmol/L (21.6-31.8); Chloride 104 mmol/L (96-109); Chol/HDL Ratio 2.45; Cholesterol 130 mg/dL (0-200); Creatine Kinase 85 U/L (26-186); Globulin 2.6 g/dL (1.6-3.3); Glucose 92 mg/dL (70-110); Magnesium 1.4 mg/dL (1.5-2.4); Non-African American GFR(CKD) 42.2 (60.0-200.0); Sodium 136 mmol/L (135-145); Total Bilirubin 0.6 mg/dL (0.2-1.2); Total Protein 6.9 g/dL (6.2-8.2); Triglycerides <50.0 mg/dL (0.0-149.0); Uric Acid 6.1 mg/dL (2.9-7.7)
== END | disposition home or self-care (01) ==
LOC: LABWHC1 09:36
PROVIDERS: ATTEND Internal Medicine
DX: T86.21 Heart transplant rejection (principal); T86.22 Heart transplant failure; T86.23 Heart transplant infection; T86.290 Cardiac allograft vasculopathy; I50.30 Unspecified diastolic (congestive) heart failure; E78.2 Mixed hyperlipidemia; Y71.8 Miscellaneous cardiovascular devices associated with adverse incidents, not elsewhere classified
CPT/HCPCS: 36415; 80053; 80061; 82550; 83735; 83880; 84550; 85025

== ENCOUNTER 2021-07-13 14:58 | Emergency (ER) | payer MEDICARE ==
[2021-07-13 15:03] VITALS: TEMP 97.8
[2021-07-13] MEDS ORDERED: KETOROLAC 15 MG/ML 1 ML VIAL IVP STA (15:27)
[2021-07-13] MEDS ORDERED: METOCLOPRAMIDE 5 MG/ML 2 ML VIAL IVP STA (15:27)
[2021-07-13] MEDS ORDERED: diphenhydrAMINE 50 MG/ML 1 ML VIAL IVP STA (15:27)
--- NOTE | 2021-07-13 15:27 | ED ---
General Adult HPI - General Chief complaint: Nausea/Vomiting/Diarrhea Stated complaint: Nausea,Vomiting, Heart transplant pt Time Seen by Provider: 07/13/21 15:05 Source: patient Mode of arrival: ambulatory Limitations: no limitations - History of Present Illness Initial comments: This is a 55-year-old female presents to the emergency Department with co mplaints of migraine headache, onset 8:00 this morning. Describes headache pain as throbbing in bilateral protestant areas. Denies vision changes and c/o photophobia. States she has had 2 episodes of vomiting and persistent nausea. Reports taking Tylenol for headache prior to arrival with no improvement in symptoms. States pain is worsened by light, sound, and with movement. Reports history of migraine headaches that correlate with seasonal weather change and ALLERGIES. Patient also complains of congested cough and nasal drainage for the past 2-3 days. Reports chills throughout the day yesterday. Denies fever, sore throat, dizziness, shortness of breath, difficulty breathing, chest pain or tightness, and bowel or bladder changes. History of a heart transplant in 2014 and follows with cardiology regularly. - Related Data Home Medications Medication Instructions Recorded Confirmed Magnesium Oxide [Mag-Ox] 800 mg PO BID 09/06/14 07/13/21 Ascorbic Acid [Vitamin C] 500 mg PO BID 05/09/15 07/13/21 Vitamin E (Dl,Tocopheryl Acet) 400 unit PO BID 05/09/15 07/13/21 [Vitamin E (400 Iu = 180 mg)] Calcium Citrate/Vitamin D3 1 tab PO AC-TID 11/07/17 07/13/21 [Calcitrate + Vit D Caplet] Losartan Potassium 100 mg PO DAILY 12/07/18 07/13/21 Mycophenolate Mofetil [Cellcept] 500 mg PO BID 12/07/18 07/13/21 Aspirin 81 mg PO DAILY 12/01/19 07/13/21 Tacrolimus [Envarsus Xr] 3 mg PO DAILY 12/02/19 07/13/21 Pravastatin Sodium [Pravachol] 20 mg PO HS 07/13/21 07/13/21 Previous Rx's Medication Instructions Recorded carvediloL [Coreg] 3.125 mg PO BID-W/MEALS #60 tab 12/03/19 Allergies Allergy/AdvReac Type Severity Reaction Status Date / Time adhesive Allergy Rash/Hives Verified 07/13/21 16:02 meperidine HCl [From Demerol] Allergy Rash/Hives Verified 07/13/21 16:02 Penicillins Allergy Rash/Hives Verified 07/13/21 16:02 Sulfa (Sulfonamide Allergy Rash/Hives Verified 07/13/21 16:02 Antibiotics) Review of Systems ROS Statement: Those systems with pertinent positive or pertinent negative responses have been documented in the HPI. ROS Other: All systems not noted in ROS Statement are negative. Past Medical History Past Medical History: Chest Pain / Angina, Heart Failure, Deep Vein Thrombosis (DVT), Hyperlipidemia, Osteoarthritis (OA), Pneumonia, Pulmonary Embolus (PE) Additional Past Medical History / Comment(s): 05-09-15 ADMITTED TO [facility] WITH CHEST PAIN NEAR SYNCOPAL EPISODE.OTHER HX: 1991 HAD OVERACTIVE THYROID TOOK MEDS X1 YEAR THEN DISCONTINUED, , ANEMIA IN PAST, past hx listed mi-pt unaware of this. past afib per old hx before heart transplant, Last Myocardial Infarction Date:: 04/2014 History of Any Multi-Drug Resistant Organisms: None Reported, MRSA Date of last positivie culture/infection: 01/2015 MDRO Source:: pacemaker Past Surgical History: Ablation, Cardiac Ablation, Heart Catheterization, Tubal Ligation Additional Past Surgical History / Comment(s): 2008 HAS EP STUDIES,CARDAIC ABLATION 1999, had pacemeaker/defibrilator but that was removed when pt had heart transplant ,CRYOTHERAPY SX FOR HIGH GRADE CELLS (CERVICAL), S/P ICD; Heart Transplant 12/2014 Past Anesthesia/Blood Transfusion Reactions: Motion Sickness, Postoperative Nausea & Vomiting (PONV) Type of Cardiac Device: Permanent Pacemaker, AICD Device Placement Date:: January 13 2014 Past Psychological History: No Psychological Hx Reported Smoking Status: Never smoker Past Alcohol Use History: None Reported Past Drug Use History: None Reported - Past Family History Brother(s) Additional Family Medical History / Comment(s): Patient has 1 brother with no major medical problems. Patient has 1 sister with no major medical problems. Patient is 2 daughters with no major medical problems. Father History Unknown: Yes Additional Family Medical History / Comment(s): Patient does not her father's medical history. Mother Family Medical History: Deep Vein Thrombosis (DVT), Hypertension Additional Family Medical History / Comment(s): Mother is alive at age 78 with history of hypertension, atrial fibrillation, osteoarthritis. General Exam Limitations: no limitations (Well-developed, well-nourished female in no acute distress. Initial temperature 97.8, pulse 87, respirations 18, blood pressure 165/80 89, pulse ox 98% on room air.) General appearance: alert, in no apparent distress Eye exam: Present: normal appearance, PERRL, EOMI. Absent: conjunctival injection, nystagmus Pupils: Present: normal accommodation ENT exam: Present: normal exam, normal oropharynx, mucous membranes moist, TM's normal bilaterally Neck exam: Present: normal inspection. Absent: tenderness, meningismus, lymphadenopathy Respiratory exam: Present: normal lung sounds bilaterally. Absent: respiratory distress, wheezes, rales, rhonchi, stridor Cardiovascular Exam: Present: regular rate, normal rhythm, normal heart sounds. Absent: systolic murmur, diastolic murmur, rubs, gallop, clicks GI/Abdominal exam: Present: soft, normal bowel sounds. Absent: distended, tenderness, guarding, rebound, rigid Neurological exam: Present: alert, oriented X3, CN II-XII intact Psychiatric exam: Present: normal affect Skin exam: Present: warm, dry, intact, normal color Course Vital Signs 07/13/21 07/13/21 07/13/21 14:59 16:14 18:00 Temperature 97.8 F Pulse Rate 87 85 92 Respiratory 18 18 18 Rate Blood Pressure 165/89 160/95 153/97 O2 Sat by Pulse 98 98 97 Oximetry 07/13/21 19:29 Temperature Pulse Rate 87 Respiratory 17 Rate Blood Pressure 156/90 O2 Sat by Pulse 97 Oximetry - Reevaluation(s) Reevaluation #1: 07/13/21 16:23 Patient updated on results and informed of positive COVID test. Discussed monoclonal antibody infusion; patient is hesitant therefore attempts will be made to contact her phlebotomy coordinator at [facility]. States her headache persists therefore additional pain medication will be ordered. 07/13/21 16:[address] Liang regarding patient's physical exam, lab results, and overall appearance. He is supportive of patient receiving monoclonal antibody infusion as long as she is agreeable and it is recommended by her transplant care team. 07/13/21 16:[address] Campos, patient's transplant surgeon. He strongly recommends patient receive monoclonal antibody infusion. Updated and is agreeable to infusion. 07/13/21 18:59 Patient tolerated monoclonal antibody infusion well, no adverse reaction noted. Patient has been able to tolerate apple juice and crackers during this time as well. Medical Decision Making - Medical Decision Making 55-year-old female with a history of heart transplant is evaluated for migraine headache and congested cough. Describes headache discomfort as gradual onset and quality consistent with previous episodes of migraine headaches. Patient is on her third day of cough and congestion. COVID swab was positive. Chest x-ray shows no acute process. Discussed monoclonal antibody infusion with patient as she is unvaccinated. Patient was agreeable upon recommendation from Dr. Campos, her transplant surgeon, and Dr. Liang, her primary care provider. Patient's vital signs are stable, she is afebrile and maintaining an oxygen saturation of 98% or greater on room air. Patient tolerated monoclonal antibody infusion with no adverse reaction. Patient was discharged home with instructions to follow up with primary care provider for recheck via telephone early next week. Return parameters were discussed in detail. Patient verbalizes understanding and agrees with this plan. This patient's case was discussed with my attending Dr. Rodriguez. - Lab Data Result diagrams: 07/13/21 15:49 07/13/21 15:49 Lab Results 07/13/21 07/13/21 07/13/21 Range/Units 15:49 15:49 15:49 WBC 5.2 (3.8-10.6) k/uL RBC 4.23 (3.80-5.40) m/uL Hgb 12.5 (11.4-16.0) gm/dL Hct 37.3 (34.0-46.0) % MCV 88.3 (80.0-100.0) fL MCH 29.5 (25.0-35.0) pg MCHC 33.4 (31.0-37.0) g/dL RDW 12.8 (11.5-15.5) % Plt Count 131 L (150-450) k/uL MPV 7.9 Neutrophils % 81 % Lymphocytes % 7 % Monocytes % 9 % Eosinophils % 1 % Basophils % 1 % Neutrophils # 4.2 (1.3-7.7) k/uL Lymphocytes # 0.4 L (1.0-4.8) k/uL Monocytes # 0.5 (0-1.0) k/uL Eosinophils # 0.1 (0-0.7) k/uL Basophils # 0.0 (0-0.2) k/uL Sodium 135 L (137-145) mmol/L Potassium 4.5 (3.5-5.1) mmol/L Chloride 106 (98-107) mmol/L Carbon Dioxide 19 L (22-30) mmol/L Anion Gap 10 mmol/L BUN 21 H (7-17) mg/dL Creatinine 1.29 H (0.52-1.04) mg/dL Est GFR (CKD-EPI)AfAm 54 (>60 ml/min/1.73 sqM) Est GFR (CKD-EPI)NonAf 47 (>60 ml/min/1.73 sqM) Glucose 110 H (74-99) mg/dL Calcium 9.4 (8.4-10.2) mg/dL Total Bilirubin 0.6 (0.2-1.3) mg/dL AST 29 (14-36) U/L ALT 18 (4-34) U/L Alkaline Phosphatase 66 (38-126) U/L Total Protein 7.0 (6.3-8.2) g/dL Albumin 4.2 (3.5-5.0) g/dL Coronavirus (PCR) Detected A (Not Detectd) - EKG Data -: EKG Interpreted by Ri EKG shows normal: sinus rhythm Rate: normal EKG Comments: EKG was obtained at 1513 shows normal sinus rhythm with incomplete right bundle branch. Ventricular rate of 84, ID interval 154, QRS duration 96, QT/QTC 390/460. - Radiology Data Radiology results: report reviewed, image reviewed Chest x-ray was obtained, report was reviewed in its entirety. Impression per Dr. Rondon is no acute process. Disposition Clinical Impression: COVID-19, Migraine headache Disposition: HOME SELF-CARE Condition: Stable Instructions (If sedation given, give patient instructions): Coronavirus Disease 2019 (COVID-19), Acute Nausea and Vomiting (ED) Additional Instructions: Rest, increase fluids, initiate 10 day quarantine. Call your primary care provider for a recheck early next week. Return to the emergency department with any shortness of breath, difficulty breathing, tightness in her chest, or chest pain. Is patient prescribed a controlled substance at d/c from ED?: No Referrals: Azucena Liang MD [Primary Care Provider] - 1-2 days Time of Disposition: 19:32
[2021-07-13] MEDS ORDERED: SODIUM CHLORIDE 0.9% 500 ML 500 ML IV STA (15:31)
[2021-07-13 15:57] LABS: Basophils % (A) 1 %; Eosinophils # (A) 0.1 k/uL (0-0.7); Eosinophils % (A) 1 %; HCT 37.3 % (34.0-46.0); HGB 12.5 gm/dL (11.4-16.0); Lymphocytes # (A) 0.4 k/uL (1.0-4.8); Lymphocytes % (A) 7 %; MCH 29.5 pg (25.0-35.0); MCHC 33.4 g/dL (31.0-37.0); MCV 88.3 fL (80.0-100.0); Mean Platelet Volume 7.9; Monocytes # (A) 0.5 k/uL (0-1.0); Monocytes % (A) 9 %; Neutrophils # (A) 4.2 k/uL (1.3-7.7); Neutrophils % (A) 81 %; Platelet Count 131 k/uL (150-450); RBC 4.23 m/uL (3.80-5.40); RDW 12.8 % (11.5-15.5); WBC 5.2 k/uL (3.8-10.6)
[2021-07-13 16:09] LABS: Albumin 4.2 g/dL (3.5-5.0); Calcium 9.4 mg/dL (8.4-10.2); Potassium 4.5 mmol/L (3.5-5.1); Total Bilirubin 0.6 mg/dL (0.2-1.3)
--- NOTE | 2021-07-13 16:13 | XR ---
EXAMINATION TYPE: XR chest 2V DATE OF EXAM: 07/13/2021 COMPARISON: Chest x-ray December 01, 2019 HISTORY: Heart transplant 2015 with congested cough TECHNIQUE: Frontal and lateral views of the chest are obtained. FINDINGS: Overlying external wires with broken second sternal wire are redemonstrated. Overlying medi astinal clips again seen. Overlying bra strap currently. There is no suspicious new focal air space o pacity, pleural effusion, or pneumothorax seen. The cardiac silhouette size is stable and within nor mal limits. The osseous structures are intact. IMPRESSION: No acute process.
[2021-07-13] MEDS ORDERED: MORPHINE SULFATE 2 MG/ML SYRINGE IVP STA (16:22)
[2021-07-13] MEDS ORDERED: CASIRIVIMAB/IMDEVIMAB (EUA) 1,200 MG in SODIUM CHLORIDE 0.9% 100 ML IVPB ONE (18:00)
[2021-07-13] MEDS ORDERED: SODIUM CHLORIDE 0.9% 50 ML IVPB ONE (18:30)
[2021-07-13 19:31] VITALS: BP 156/90; PULSE 87; RESP 17
[2021-07-13] MEDS ORDERED: ONDANSETRON 4 MG ODT STARTER PACK 2 TAB BTL PO STA (19:31)
== END 2021-07-13 19:30 | disposition home or self-care (01) ==
LOC: EC 14:58
DX: U07.1 COVID-19 (principal); G43.909 Migraine, unspecified, not intractable, without status migrainosus; I50.9 Heart failure, unspecified; I25.2 Old myocardial infarction; E78.5 Hyperlipidemia, unspecified; M19.90 Unspecified osteoarthritis, unspecified site; Z79.82 Long term (current) use of aspirin; Z79.899 Other long term (current) drug therapy; Z86.711 Personal history of pulmonary embolism; Z86.718 Personal history of other venous thrombosis and embolism; Z88.0 Allergy status to penicillin; Z88.2 Allergy status to sulfonamides; Z88.5 Allergy status to narcotic agent; Z95.810 Presence of automatic (implantable) cardiac defibrillator; Z94.1 Heart transplant status; Z82.49 Family history of ischemic heart disease and other diseases of the circulatory system
CPT/HCPCS: 36415; 93005; 80053; 85025; 87635; 71046; 96365; 96375 ×4; 96361 ×2; 99284; J1200; J2765; J2270; J1885; Q0243

== ENCOUNTER 2021-07-19 17:33 | Emergency (ER) | payer MEDICARE ==
[2021-07-19 20:00] LABS: Basophils # (A) 0.1 k/uL (0-0.2); Basophils % (A) 1 %; Eosinophils # (A) 0.2 k/uL (0-0.7); Eosinophils % (A) 4 %; HCT 38.9 % (34.0-46.0); HGB 13.2 gm/dL (11.4-16.0); Lymphocytes # (A) 1.6 k/uL (1.0-4.8); Lymphocytes % (A) 28 %; MCHC 33.9 g/dL (31.0-37.0); MCV 85.7 fL (80.0-100.0); Mean Platelet Volume 8.5; Monocytes # (A) 0.5 k/uL (0-1.0); Monocytes % (A) 8 %; Neutrophils # (A) 3.3 k/uL (1.3-7.7); Neutrophils % (A) 57 %; Platelet Count 174 k/uL (150-450); RBC 4.53 m/uL (3.80-5.40); WBC 5.8 k/uL (3.8-10.6)
--- NOTE | 2021-07-19 20:09 | ED ---
URI HPI - General Chief Complaint: Upper Respiratory Infection Stated Complaint: Covid + needs X-Ray Time Seen by Provider: 07/19/21 19:16 Source: patient Mode of arrival: ambulatory Limitations: no limitations - History of Present Illness Initial Comments: 55-year-old female patient has medical history significant for heart transplant presents to the emergency department today for evaluation of persistent cough and intermittent left-sided chest pain. Patient states she was diagnosed with Covid on Friday and did receive an antibody infusion. States that her cough has not improved and seems to be worsening. States she's had sharp pain to the left side of her chest intermittently throughout the day today. She denies any shortness of breath. No longer having fevers or chills. Denies any nausea, vomiting, swelling to the extremities. States her transplant physician at [facility] wanted her to come in to have a chest x-ray. Patient denies any recent rash, abdominal pain, diarrhea, constipation, back pain, numbness, tingling, dizziness, weakness, hematuria, dysuria, urinary urgency, urinary frequency, headache, visual changes, or any other complaints. - Related Data Home Medications Medication Instructions Recorded Confirmed Magnesium Oxide [Mag-Ox] 800 mg PO BID 09/06/14 07/13/21 Ascorbic Acid [Vitamin C] 500 mg PO BID 05/09/15 07/13/21 Vitamin E (Dl,Tocopheryl Acet) 400 unit PO BID 05/09/15 07/13/21 [Vitamin E (400 Iu = 180 mg)] Calcium Citrate/Vitamin D3 1 tab PO AC-TID 11/07/17 07/13/21 [Calcitrate + Vit D Caplet] Losartan Potassium 100 mg PO DAILY 12/07/18 07/13/21 Mycophenolate Mofetil [Cellcept] 500 mg PO BID 12/07/18 07/13/21 Aspirin 81 mg PO DAILY 12/01/19 07/13/21 Tacrolimus [Envarsus Xr] 3 mg PO DAILY 12/02/19 07/13/21 Pravastatin Sodium [Pravachol] 20 mg PO HS 07/13/21 07/13/21 Previous Rx's Medication Instructions Recorded carvediloL [Coreg] 3.125 mg PO BID-W/MEALS #60 tab 12/03/19 Allergies Allergy/AdvReac Type Severity Reaction Status Date / Time adhesive Allergy Rash/Hives Verified 07/19/21 17:49 meperidine HCl [From Demerol] Allergy Rash/Hives Verified 07/19/21 17:49 Penicillins Allergy Rash/Hives Verified 07/19/21 17:49 Sulfa (Sulfonamide Allergy Rash/Hives Verified 07/19/21 17:49 Antibiotics) Review of Systems ROS Statement: Those systems with pertinent positive or pertinent negative responses have been documented in the HPI. ROS Other: All systems not noted in ROS Statement are negative. Past Medical History Past Medical History: Chest Pain / Angina, Heart Failure, Deep Vein Thrombosis (DVT), Hyperlipidemia, Osteoarthritis (OA), Pneumonia, Pulmonary Embolus (PE) Additional Past Medical History / Comment(s): 05-09-15 ADMITTED TO [facility] WITH CHEST PAIN NEAR SYNCOPAL EPISODE.OTHER HX: 1991 HAD OVERACTIVE THYROID TOOK MEDS X1 YEAR THEN DISCONTINUED, , ANEMIA IN PAST, past hx listed mi-pt unaware of this. past afib per old hx before heart transplant, Last Myocardial Infarction Date:: 04/2014 History of Any Multi-Drug Resistant Organisms: None Reported, MRSA Date of last positivie culture/infection: 01/2015 MDRO Source:: pacemaker Past Surgical History: Ablation, Cardiac Ablation, Heart Catheterization, Tubal Ligation Additional Past Surgical History / Comment(s): 2008 HAS EP STUDIES,CARDAIC ABLATION 1999, had pacemeaker/defibrilator but that was removed when pt had heart transplant -2014 ,CRYOTHERAPY SX FOR HIGH GRADE CELLS (CERVICAL), S/P ICD; Heart Transplant 12/2014 Past Anesthesia/Blood Transfusion Reactions: Motion Sickness, Postoperative Nausea & Vomiting (PONV) Type of Cardiac Device: Permanent Pacemaker, AICD Device Placement Date:: January 13 2014 Past Psychological History: No Psychological Hx Reported Smoking Status: Never smoker Past Alcohol Use History: None Reported Past Drug Use History: None Reported - Past Family History Brother(s) Additional Family Medical History / Comment(s): Patient has 1 brother with no major medical problems. Patient has 1 sister with no major medical problems. Patient is 2 daughters with no major medical problems. Father History Unknown: Yes Additional Family Medical History / Comment(s): Patient does not her father's medical history. Mother Family Medical History: Deep Vein Thrombosis (DVT), Hypertension Additional Family Medical History / Comment(s): Mother is alive at age 78 with history of hypertension, atrial fibrillation, osteoarthritis. General Exam Limitations: no limitations General appearance: alert, in no apparent distress, other (This is a well- developed, well-nourished, nontoxic-appearing female in no acute distress. Vital signs upon presentation temperature 98.6F, pulse 69, respirations 18, blood pressure 174/102, pulse ox 94% on room air.) ENT exam: Present: normal exam, normal oropharynx, mucous membranes moist Respiratory exam: Present: normal lung sounds bilaterally. Absent: respiratory distress, wheezes, rales, rhonchi, stridor Cardiovascular Exam: Present: regular rate, normal rhythm, normal heart sounds. Absent: systolic murmur, diastolic murmur, rubs, gallop, clicks GI/Abdominal exam: Present: soft, normal bowel sounds. Absent: distended, tenderness, guarding, rebound, rigid Neurological exam: Present: alert, oriented X3, CN II-XII intact Psychiatric exam: Present: normal affect, normal mood Skin exam: Present: warm, dry, intact, normal color. Absent: rash Course Vital Signs 07/19/21 07/19/21 17:46 20:47 Temperature 98.6 F 98.1 F Pulse Rate 69 75 Respiratory 18 22 Rate Blood Pressure 174/102 185/100 O2 Sat by Pulse 94 L 96 Oximetry Medical Decision Making - Medical Decision Making 55-year-old female patient with history of heart transplant presented to the emergency department today for evaluation of persistent cough and intermittent left-sided chest pain. Patient is Covid positive. Did receive antibodies. Physical examination did recur equal lung sounds. Vital signs are unremarkable. Oxygen saturation are 96%. Chest x-ray is negative. I did discuss the case with her transplant physician Dr. Campos at [facility]. He recommended stopping her mycophenalate through the weekend and calling on Friday for further instr uctions. Return parameters are discussed in detail. She verbalizes understanding and agrees with this plan. Case discussed with my attending Dr. Flood. - Lab Data Result diagrams: 07/19/21 19:39 07/19/21 19:39 Lab Results 07/19/21 07/19/21 07/19/21 Range/Units 19:39 19:39 19:39 WBC 5.8 (3.8-10.6) k/uL RBC 4.53 (3.80-5.40) m/uL Hgb 13.2 (11.4-16.0) gm/dL Hct 38.9 (34.0-46.0) % MCV 85.7 (80.0-100.0) fL MCH 29.0 (25.0-35.0) pg MCHC 33.9 (31.0-37.0) g/dL RDW 13.0 (11.5-15.5) % Plt Count 174 (150-450) k/uL MPV 8.5 Neutrophils % 57 % Lymphocytes % 28 % Monocytes % 8 % Eosinophils % 4 % Basophils % 1 % Neutrophils # 3.3 (1.3-7.7) k/uL Lymphocytes # 1.6 (1.0-4.8) k/uL Monocytes # 0.5 (0-1.0) k/uL Eosinophils # 0.2 (0-0.7) k/uL Basophils # 0.1 (0-0.2) k/uL PT 10.5 (9.0-12.0) sec INR 1.0 (<1.2) APTT 22.5 (22.0-30.0) sec Sodium 136 L (137-145) mmol/L Potassium 5.1 (3.5-5.1) mmol/L Chloride 105 (98-107) mmol/L Carbon Dioxide 20 L (22-30) mmol/L Anion Gap 11 mmol/L BUN 27 H (7-17) mg/dL Creatinine 1.41 H (0.52-1.04) mg/dL Est GFR (CKD-EPI)AfAm 49 (>60 ml/min/1.73 sqM) Est GFR (CKD-EPI)NonAf 42 (>60 ml/min/1.73 sqM) Glucose 101 H (74-99) mg/dL Calcium 9.8 (8.4-10.2) mg/dL Magnesium 1.6 (1.6-2.3) mg/dL Total Bilirubin 0.5 (0.2-1.3) mg/dL AST 33 (14-36) U/L ALT 33 (4-34) U/L Alkaline Phosphatase 77 (38-126) U/L Troponin I (0.000-0.034) ng/mL Total Protein 7.2 (6.3-8.2) g/dL Albumin 4.2 (3.5-5.0) g/dL 07/19/21 Range/Units 19:39 WBC (3.8-10.6) k/uL RBC (3.80-5.40) m/uL Hgb (11.4-16.0) gm/dL Hct (34.0-46.0) % MCV (80.0-100.0) fL MCH (25.0-35.0) pg MCHC (31.0-37.0) g/dL RDW (11.5-15.5) % Plt Count (150-450) k/uL MPV Neutrophils % % Lymphocytes % % Monocytes % % Eosinophils % % Basophils % % Neutrophils # (1.3-7.7) k/uL Lymphocytes # (1.0-4.8) k/uL Monocytes # (0-1.0) k/uL Eosinophils # (0-0.7) k/uL Basophils # (0-0.2) k/uL PT (9.0-12.0) sec INR (<1.2) APTT (22.0-30.0) sec Sodium (137-145) mmol/L Potassium (3.5-5.1) mmol/L Chloride (98-107) mmol/L Carbon Dioxide (22-30) mmol/L Anion Gap mmol/L BUN (7-17) mg/dL Creatinine (0.52-1.04) mg/dL Est GFR (CKD-EPI)AfAm (>60 ml/min/1.73 sqM) Est GFR (CKD-EPI)NonAf (>60 ml/min/1.73 sqM) Glucose (74-99) mg/dL Calcium (8.4-10.2) mg/dL Magnesium (1.6-2.3) mg/dL Total Bilirubin (0.2-1.3) mg/dL AST (14-36) U/L ALT (4-34) U/L Alkaline Phosphatase (38-126) U/L Troponin I <0.012 (0.000-0.034) ng/mL Total Protein (6.3-8.2) g/dL Albumin (3.5-5.0) g/dL - EKG Data -: EKG Interpreted by Me EKG Comments: EKG obtained at 191 shows normal sinus rhythm with an incomplete right bundle branch block. Ventricular rate is 73, MD interval 148, QRS duration 96, QT 394, QTC 434. No evidence of ST elevation or depression. - Radiology Data Radiology results: report reviewed, image reviewed Two-view x-ray of the chest is obtained. Report is reviewed in its entirety. Impression by Dr. Green shows no active cardiopulmonary disease. No change. Disposition Clinical Impression: COVID-19, Pleuritic chest pain Disposition: HOME SELF-CARE Condition: Good Instructions (If sedation given, give patient instructions): Coronavirus Disease 2019 (COVID-19), Pleurisy (ED) Additional Instructions: Hold the mycophenolate over the weekend. Call Dr. Campos first thing Friday for further instructions and further evaluation. Return for any new, worsening, or concerning symptoms. Is patient prescribed a controlled substance at d/c from ED?: No Referrals: Azucena Liang MD [Primary Care Provider] - 1-2 days Time of Disposition: 21:27
[2021-07-19 20:11] LABS: Albumin 4.2 g/dL (3.5-5.0); Calcium 9.8 mg/dL (8.4-10.2); Magnesium 1.6 mg/dL (1.6-2.3); Partial Thromboplastin Time 22.5 sec (22.0-30.0); Potassium 5.1 mmol/L (3.5-5.1); Prothrombin Time 10.5 sec (9.0-12.0); Total Bilirubin 0.5 mg/dL (0.2-1.3); Total Protein 7.2 g/dL (6.3-8.2)
[2021-07-19 20:51] VITALS: BP 185/100; PULSE 75; RESP 22; TEMP 98.1
--- NOTE | 2021-07-19 21:07 | XR ---
EXAMINATION TYPE: XR chest 2V DATE OF EXAM: 07/19/2021 COMPARISON: 07/13/2021 HISTORY: Cough and congestion TECHNIQUE: FINDINGS: There is right side aortic arch. Heart size is normal. There are sternal wires. Costophreni c angles are clear. There are no hilar masses. Lungs are clear of infiltrate. There is no pleural eff usion. IMPRESSION: No active cardiopulmonary disease. No change.
== END 2021-07-19 21:38 | disposition home or self-care (01) ==
LOC: EC 17:33
DX: U07.1 COVID-19 (principal); I50.9 Heart failure, unspecified; E78.5 Hyperlipidemia, unspecified; M19.90 Unspecified osteoarthritis, unspecified site; Z79.82 Long term (current) use of aspirin; Z79.899 Other long term (current) drug therapy; Z88.0 Allergy status to penicillin; Z88.2 Allergy status to sulfonamides; Z88.8 Allergy status to other drugs, medicaments and biological substances
CPT/HCPCS: 36415; 71046; 80053; 83735; 84484; 85025; 85610; 85730; 93005; 99285

== ENCOUNTER → 2021-08-24 | Outpatient (CLI) | payer MEDICARE ==
--- NOTE | 2021-08-24 14:02 | XR ---
EXAMINATION TYPE: XR chest 2V DATE OF EXAM: 08/24/2021 COMPARISON: 07/19/2021 HISTORY: COVID TECHNIQUE: Frontal and lateral views of the chest are obtained. FINDINGS: There is no focal air space opacity, pleural effusion, or pneumothorax seen. The cardiac silhouette size is within normal limits. Patient is status post sternotomy. IMPRESSION: No acute cardiopulmonary process.
== END | disposition home or self-care (01) ==
LOC: RADXRMAIN 13:14
PROVIDERS: ATTEND Internal Medicine
DX: U07.1 COVID-19 (principal)
CPT/HCPCS: 71046

== ENCOUNTER → 2021-08-28 | Outpatient (CLI) | payer MEDICARE ==
[2021-08-28 15:16] LABS: Basophils # (A) 0.06 X 10*3/uL (0.00-0.10); Eosinophils # (A) 0.49 X 10*3/uL (0.04-0.35); Eosinophils % (A) 7.8 %; HGB 13.5 g/dL (12.0-15.0); Lymphocytes # (A) 1.42 X 10*3/uL (0.90-5.00); Lymphocytes % (A) 22.5 %; MCH 29.2 pg (27.0-32.0); MCHC 32.9 g/dL (32.0-37.0); MCV 88.6 fL (80.0-97.0); Monocytes % (A) 9.5 %; Neutrophils # (A) 3.71 X 10*3/uL (1.80-7.70); Neutrophils % (A) 58.9 %; Platelet Count 215 X 10*3/uL (140-440); RBC 4.63 X 10*6/uL (4.10-5.20)
[2021-08-28 16:52] LABS: African American GFR (CKD) 42.9 (60.0-200.0); Albumin 4.6 g/dL (3.8-4.9); Albumin/Globulin Ratio 1.78 (1.60-3.17); BUN/Creat Ratio 15.51 Ratio (12.00-20.00); Blood Urea Nitrogen 24.2 mg/dL (9.0-27.0); Calcium 9.9 mg/dL (8.7-10.3); Carbon Dioxide 22.3 mmol/L (21.6-31.8); Globulin 2.6 g/dL (1.6-3.3); Magnesium 1.7 mg/dL (1.5-2.4); Potassium 5.2 mmol/L (3.5-5.5); Total Bilirubin 0.5 mg/dL (0.30-1.20); Total Protein 7.2 g/dL (6.2-8.2)
== END | disposition home or self-care (01) ==
LOC: LABWHC1 09:09
PROVIDERS: ATTEND Internal Medicine
DX: I50.30 Unspecified diastolic (congestive) heart failure (principal); T86.21 Heart transplant rejection; T86.22 Heart transplant failure; T86.23 Heart transplant infection; T86.290 Cardiac allograft vasculopathy; E78.2 Mixed hyperlipidemia; T86.20 Unspecified complication of heart transplant
CPT/HCPCS: 36415; 80053; 82550; 83735; 85025

== ENCOUNTER → 2021-09-25 | Outpatient (CLI) | payer MEDICARE ==
[2021-09-25 19:27] LABS: African American GFR (CKD) 48.9 (60.0-200.0); Anion Gap 13.1 mmol/L (10.00-18.00); BUN/Creat Ratio 18.93 Ratio (12.00-20.00); Blood Urea Nitrogen 26.5 mg/dL (9.0-27.0); Calcium 9.5 mg/dL (8.7-10.3); Carbon Dioxide 20.9 mmol/L (20.0-27.5); Non-African American GFR(CKD) 42.2 (60.0-200.0); Potassium 4.7 mmol/L (3.5-5.5)
== END | disposition home or self-care (01) ==
LOC: LABWHC1 09:01
PROVIDERS: ATTEND Internal Medicine
DX: I50.30 Unspecified diastolic (congestive) heart failure (principal); E78.2 Mixed hyperlipidemia; T86.22 Heart transplant failure; Y82.8 Other medical devices associated with adverse incidents
CPT/HCPCS: 36415; 80048

== ENCOUNTER → 2021-10-25 | Outpatient (CLI) | payer MEDICARE ==
[2021-10-25 15:19] LABS: Basophils # (A) 0.05 X 10*3/uL (0.00-0.10); Basophils % (A) 0.8 %; Eosinophils # (A) 0.21 X 10*3/uL (0.04-0.35); Eosinophils % (A) 3.2 %; HCT 39.1 % (37.2-46.3); HGB 11.9 g/dL (12.0-15.0); Lymphocytes # (A) 1.72 X 10*3/uL (0.90-5.00); MCH 27.2 pg (27.0-32.0); MCHC 30.4 g/dL (32.0-37.0); MCV 89.5 fL (80.0-97.0); Mean Platelet Volume 10.1 fL (9.5-12.2); Monocytes # (A) 0.71 X 10*3/uL (0.20-1.00); Monocytes % (A) 10.7 %; Neutrophils # (A) 3.88 X 10*3/uL (1.80-7.70); Neutrophils % (A) 58.5 %; Platelet Count 353 X 10*3/uL (140-440); RBC 4.37 X 10*6/uL (4.10-5.20); RDW 12.2 % (11.5-14.5); WBC 6.62 X 10*3/uL (4.50-10.00)
[2021-10-25 18:12] LABS: African American GFR (CKD) 48.9 (60.0-200.0); Anion Gap 15.6 mmol/L (10.00-18.00); BUN/Creat Ratio 14.71 Ratio (12.00-20.00); Blood Urea Nitrogen 20.6 mg/dL (9.0-27.0); Calcium 9.3 mg/dL (8.7-10.3); Carbon Dioxide 18.4 mmol/L (20.0-27.5); Non-African American GFR(CKD) 42.2 (60.0-200.0)
== END | disposition home or self-care (01) ==
LOC: LABWHC1 08:53
PROVIDERS: ATTEND Internal Medicine
DX: I50.30 Unspecified diastolic (congestive) heart failure (principal); E78.2 Mixed hyperlipidemia; T86.21 Heart transplant rejection; T86.22 Heart transplant failure; T86.23 Heart transplant infection; T86.290 Cardiac allograft vasculopathy; Y82.9 Unspecified medical devices associated with adverse incidents
CPT/HCPCS: 36415; 80048; 85025

== ENCOUNTER → 2022-01-01 | Outpatient (CLI) | payer MEDICARE ==
--- NOTE | 2022-01-01 12:50 | US ---
EXAMINATION TYPE: US carotid duplex BILAT DATE OF EXAM: 01/01/2022 COMPARISON: NONE CLINICAL HISTORY: R51.9 Temporal headaches. Pt states headaches EXAM MEASUREMENTS: RIGHT: Peak Systolic Velocity (PSV) cm/sec ----- Right CCA: 83.8 ----- Right ICA: 112 ----- Right ECA: 110 ICA/CCA ratio: 1.3 RIGHT: End Diastole cm/sec ----- Right CCA: 26.6 ----- Right ICA: 48.1 ----- Right ECA: 20.8 LEFT: Peak Systolic Velocity (PSV) cm/sec ----- Left CCA: 92.4 ----- Left ICA: 92.0 ----- Left ECA: 109 ICA/CCA ratio: 1.0 LEFT: End Diastole cm/sec ----- Left CCA: 25.2 ----- Left ICA: 40.1 ----- Left ECA: 26.6 VERTEBRALS (direction of flow): Right Vertebral: Antegrade Left Vertebral: Antegrade Rhythm: Arrhythmia No significant stenosis seen IMPRESSION: No significant focal plaque or hemodynamically significant stenosis in either internal c arotid artery. Arrhythmia is noted during real-time scanning and on images saved. Consider further investigation with 24 hour Holter monitoring if this is not known finding. Criteria for Assigning % of Stenosis / Diameter reduction (Estimation based on the indirect measurements of the internal carotid artery velocities (ICA PSV). 1. Normal (no stenosis)=ICA PSV < 125 cm/s: ratio < 2.0: ICA EDV<40 cm/s. 2. Less than 50% stenosis=ICA PSV < 125 cm/s: ratio < 2.0: ICA EDV<40 cm/s. 3. 50 to 69% stenosis=ICA PSV of 125 to 230 cm/s: ration 2.0 ? 4.0: ICA EDV 40-100 cm/s. 4. Greater than 70% stenosis to near occlusion= ICA PSV > 230 cm/s: ratio > 4.0: ICA EDV > 100 cm/s. 5. Near occlusion= ICA PSV velocities may be low or undetectable: variable ratio and ICA EDV. 6. Total occlusion=unable to detect flow.
== END | disposition home or self-care (01) ==
LOC: RADUSWWP 10:52
PROVIDERS: ATTEND Internal Medicine
DX: I49.9 Cardiac arrhythmia, unspecified (principal); R51.9 Headache, unspecified
CPT/HCPCS: 93880

== ENCOUNTER → 2022-02-04 | Outpatient (CLI) | payer MEDICARE ==
--- NOTE | 2022-02-04 22:20 | US ---
EXAMINATION TYPE: US transvaginal DATE OF EXAM: 02/04/2022 COMPARISON: US 2016 CLINICAL HISTORY: N95.0 POSTMENOPAUSAL BLEEDING. Pt states episode of light vaginal bleeding x 2 days TECHNIQUE: Transvaginal (TV). Transvaginal sonographic images of the pelvis were acquired. Date of LMP: Age 50 EXAM MEASUREMENTS: Uterus: 6.2 x 3.4 x 4.2 cm Endometrial Stripe: 0.3 cm Right Ovary: 1.5 x 1.2 x 1.0 cm Left Ovary: 1.5 x 1.3 x 1.7 cm 1. Uterus: Retroverted . No evidence of mass. 2. Endometrium: Visualized endometrium is within normal limits. 3. Right Ovary: Within normal limits for size. 4. Left Ovary: Within normal limits for size. 5. Bilateral Adnexa: wnl 6. Posterior cul-de-sac: wnl IMPRESSION: 1. No sonographic evidence for acute pelvic process. 2. Visualized endometrium within normal limits.
== END | disposition home or self-care (01) ==
LOC: RADUSWWP 15:39
PROVIDERS: ATTEND Obstetrics & Gynecology
DX: N95.0 Postmenopausal bleeding (principal)
CPT/HCPCS: 76830

== ENCOUNTER → 2022-04-11 | Outpatient (CLI) | payer MEDICARE ==
[2022-04-11 15:19] LABS: Basophils # (A) 0.05 X 10*3/uL (0.00-0.10); Eosinophils # (A) 0.32 X 10*3/uL (0.04-0.35); Eosinophils % (A) 6.2 %; HCT 38.9 % (37.2-46.3); HGB 12.3 g/dL (12.0-15.0); Immature Grans, Automated 0.2 %; Lymphocytes # (A) 1.62 X 10*3/uL (0.90-5.00); Lymphocytes % (A) 31.5 %; MCH 28.1 pg (27.0-32.0); MCHC 31.6 g/dL (32.0-37.0); MCV 88.8 fL (80.0-97.0); Mean Platelet Volume 11.5 fL (9.5-12.2); Monocytes # (A) 0.58 X 10*3/uL (0.20-1.00); Monocytes % (A) 11.3 %; NRBC Per 100 WBC 0 /100 WBCS (0.0-0.0); Neutrophils # (A) 2.56 X 10*3/uL (1.80-7.70); Neutrophils % (A) 49.8 %; Platelet Count 191 X 10*3/uL (140-440); RBC 4.38 X 10*6/uL (4.10-5.20); RDW 13.2 % (11.5-14.5); WBC 5.14 X 10*3/uL (4.50-10.00)
[2022-04-11 16:30] LABS: African American GFR (CKD) 51.2 (60.0-200.0); Albumin 4.3 g/dL (3.8-4.9); Albumin/Globulin Ratio 1.83 (1.60-3.17); Anion Gap 11.2 mmol/L (10.00-18.00); BUN/Creat Ratio 23.96 Ratio (12.00-20.00); Blood Urea Nitrogen 32.1 mg/dL (9.0-27.0); Calcium 9.5 mg/dL (8.7-10.3); Carbon Dioxide 22.8 mmol/L (20.0-27.5); Globulin 2.4 g/dL (1.6-3.3); Magnesium 1.9 mg/dL (1.5-2.4); Non-African American GFR(CKD) 44.2 (60.0-200.0); Potassium 4.7 mmol/L (3.5-5.5); Total Bilirubin 0.4 mg/dL (0.30-1.20); Total Protein 6.7 g/dL (6.2-8.2)
== END | disposition home or self-care (01) ==
LOC: LABWHC1 08:39
PROVIDERS: ATTEND Internal Medicine
DX: E78.2 Mixed hyperlipidemia (principal); I50.30 Unspecified diastolic (congestive) heart failure; T86.23 Heart transplant infection; T86.22 Heart transplant failure; T86.21 Heart transplant rejection; T86.290 Cardiac allograft vasculopathy; Y82.9 Unspecified medical devices associated with adverse incidents
CPT/HCPCS: 36415; 80053; 82550; 83735; 83880; 85025

== ENCOUNTER → 2022-06-24 | Outpatient (CLI) | payer MEDICARE ==
[2022-06-24 14:44] LABS: Basophils # (A) 0.06 X 10*3/uL (0.00-0.10); Basophils % (A) 1.3 %; Eosinophils # (A) 0.38 X 10*3/uL (0.04-0.35); Eosinophils % (A) 8.1 %; HCT 40.2 % (37.2-46.3); HGB 13.4 g/dL (12.0-15.0); Immature Grans, Automated 0.2 %; Lymphocytes # (A) 1.22 X 10*3/uL (0.90-5.00); Lymphocytes % (A) 26.1 %; MCH 29.5 pg (27.0-32.0); MCHC 33.3 g/dL (32.0-37.0); MCV 88.5 fL (80.0-97.0); Monocytes # (A) 0.43 X 10*3/uL (0.20-1.00); Monocytes % (A) 9.2 %; NRBC Per 100 WBC 0 /100 WBCS (0.0-0.0); Neutrophils # (A) 2.58 X 10*3/uL (1.80-7.70); Neutrophils % (A) 55.1 %; Platelet Count 199 X 10*3/uL (140-440); RBC 4.54 X 10*6/uL (4.10-5.20); RDW 13.1 % (11.5-14.5); WBC 4.68 X 10*3/uL (4.50-10.00)
[2022-06-24 14:49] LABS: African American GFR (CKD) 53.1 (60.0-200.0); Albumin 4.2 g/dL (3.8-4.9); Albumin/Globulin Ratio 1.4 (1.60-3.17); Anion Gap 9.9 mmol/L (10.00-18.00); BUN/Creat Ratio 17.46 Ratio (12.00-20.00); Blood Urea Nitrogen 22.7 mg/dL (9.0-27.0); Calcium 9.6 mg/dL (8.7-10.3); Carbon Dioxide 24.1 mmol/L (20.0-27.5); Magnesium 1.8 mg/dL (1.5-2.4); Non-African American GFR(CKD) 45.8 (60.0-200.0); Potassium 5.1 mmol/L (3.5-5.5); Total Bilirubin 0.4 mg/dL (0.30-1.20); Total Protein 7.2 g/dL (6.2-8.2)
== END | disposition home or self-care (01) ==
LOC: LABWHC1 08:19
PROVIDERS: ATTEND Internal Medicine
DX: I50.30 Unspecified diastolic (congestive) heart failure (principal); E78.2 Mixed hyperlipidemia; T86.21 Heart transplant rejection; T86.22 Heart transplant failure; T86.23 Heart transplant infection; Y82.9 Unspecified medical devices associated with adverse incidents
CPT/HCPCS: 36415; 80053; 82550; 83735; 83880; 85025

== ENCOUNTER → 2022-09-20 | Outpatient (CLI) | payer MEDICARE ==
[2022-09-20 14:19] LABS: African American GFR (CKD) 48.6 (60.0-200.0); Albumin 4.5 g/dL (3.8-4.9); Albumin/Globulin Ratio 1.55 (1.60-3.17); Anion Gap 13.1 mmol/L (10.00-18.00); BUN/Creat Ratio 15.79 Ratio (12.00-20.00); Blood Urea Nitrogen 22.1 mg/dL (9.0-27.0); Calcium 9.6 mg/dL (8.7-10.3); Carbon Dioxide 22.9 mmol/L (20.0-27.5); Globulin 2.9 g/dL (1.6-3.3); Magnesium 1.8 mg/dL (1.5-2.4); Non-African American GFR(CKD) 41.9 (60.0-200.0); Potassium 4.4 mmol/L (3.5-5.5); Total Bilirubin 0.5 mg/dL (0.30-1.20); Total Protein 7.4 g/dL (6.2-8.2)
[2022-09-20 14:26] LABS: Basophils # (A) 0.05 X 10*3/uL (0.00-0.10); Basophils % (A) 0.8 %; Eosinophils # (A) 0.23 X 10*3/uL (0.04-0.35); Eosinophils % (A) 3.8 %; HCT 44.3 % (37.2-46.3); HGB 14.4 g/dL (12.0-15.0); Immature Grans, Automated 0.2 %; Lymphocytes # (A) 1.55 X 10*3/uL (0.90-5.00); Lymphocytes % (A) 25.7 %; MCH 28.9 pg (27.0-32.0); MCHC 32.5 g/dL (32.0-37.0); MCV 88.8 fL (80.0-97.0); Mean Platelet Volume 10.9 fL (9.5-12.2); Monocytes # (A) 0.65 X 10*3/uL (0.20-1.00); Monocytes % (A) 10.8 %; NRBC Per 100 WBC 0 /100 WBCS (0.0-0.0); Neutrophils # (A) 3.53 X 10*3/uL (1.80-7.70); Neutrophils % (A) 58.7 %; Platelet Count 224 X 10*3/uL (140-440); RBC 4.99 X 10*6/uL (4.10-5.20); RDW 12.9 % (11.5-14.5); WBC 6.02 X 10*3/uL (4.50-10.00)
== END | disposition home or self-care (01) ==
LOC: LABWHC1 08:57
PROVIDERS: ATTEND Internal Medicine
DX: T86.20 Unspecified complication of heart transplant (principal); T86.21 Heart transplant rejection; T86.22 Heart transplant failure; T86.23 Heart transplant infection; T86.290 Cardiac allograft vasculopathy; E78.2 Mixed hyperlipidemia; Y82.9 Unspecified medical devices associated with adverse incidents; I50.30 Unspecified diastolic (congestive) heart failure
CPT/HCPCS: 36415; 80053; 82550; 83735; 83880; 85025

== ENCOUNTER → 2023-03-25 | Outpatient (CLI) | payer MEDICARE ==
--- NOTE | 2023-03-25 12:29 | XR ---
EXAMINATION TYPE: XR chest 2V DATE OF EXAM: 03/25/2023 10:52 AM COMPARISON: Chest radiographs from 08/24/2021 TECHNIQUE: XR chest 2V Frontal and lateral views of the chest. CLINICAL INDICATION:Female, 57 years old with history of J20.9 Acute Bronchitis; FINDINGS: Lungs/Pleura: There is no evidence of pleural effusion, focal consolidation, or pneumothorax. Pulmonary vascularity: Unremarkable. Heart/mediastinum: Cardiomediastinal silhouette is unremarkable. Musculoskeletal: No acute osseous pathology. Midline sternotomy wires and surgical clips project over the mediastinum. IMPRESSION: No acute cardiopulmonary disease/process.
== END | disposition home or self-care (01) ==
LOC: RADXRMAIN 10:38
PROVIDERS: ATTEND Internal Medicine
DX: J20.9 Acute bronchitis, unspecified (principal)
CPT/HCPCS: 71046

== ENCOUNTER → 2023-04-14 | Outpatient (CLI) | payer MEDICARE ==
[2023-04-14 16:22] LABS: ALT 21 U/L (8-44); AST 21 U/L (13-35); Albumin 4.3 d/dL (3.8-4.9); Albumin/Globulin Ratio 1.72 Ratio (1.60-3.17); Alkaline Phosphatase 76 U/L (41-126); BUN/Creat Ratio 18.54 Ratio (12.00-20.00); Blood Urea Nitrogen 24.1 mg/dL (9.0-27.0); Calcium 9.6 mg/dL (8.7-10.3); Carbon Dioxide 23.8 mmol/L (21.6-31.8); Chloride 107 mmol/L (96-109); Creatine Kinase 93 U/L (26-186); Globulin 2.5 d/dL (1.6-3.3); Glucose 102 mg/dL (70-110); Magnesium 1.7 mg/dL (1.5-2.4); Potassium 5.3 mmol/L (3.5-5.5); Sodium 142 mmol/L (135-145); Total Bilirubin 0.4 mg/dL (0.3-1.2); Total Protein 6.8 d/dL (6.2-8.2)
[2023-04-14 18:13] LABS: Basophils # (A) 0.06 X 10*3/uL (0.00-0.10); Basophils % (A) 1.3 %; Eosinophils % (A) 4.2 %; HGB 13.2 d/dL (12.0-15.0); Lymphocytes # (A) 1.59 X 10*3/uL (0.90-5.00); Lymphocytes % (A) 33.3 %; MCH 28.9 pg (27.0-32.0); MCHC 32.2 d/dL (32.0-37.0); MCV 89.7 FL (80.0-97.0); Mean Platelet Volume 11.4 FL (9.5-12.2); Monocytes # (A) 0.49 X 10*3/uL (0.20-1.00); Monocytes % (A) 10.3 %; NRBC Per 100 WBC 0 X 10*3/uL (0.00-0.01); Neutrophils # (A) 2.41 X 10*3/uL (1.80-7.70); Neutrophils % (A) 50.5 %; Platelet Count 193 X 10*3/uL (140-440); RBC 4.57 X 10*6/uL (4.10-5.20); RDW 12.7 % (11.5-14.5); WBC 4.77 X 10*3/uL (4.50-10.00)
== END | disposition home or self-care (01) ==
LOC: LABWHC1 08:03
PROVIDERS: ATTEND Internal Medicine
DX: I50.30 Unspecified diastolic (congestive) heart failure (principal); E78.2 Mixed hyperlipidemia; T86.20 Unspecified complication of heart transplant; T86.22 Heart transplant failure; T86.23 Heart transplant infection; T86.290 Cardiac allograft vasculopathy; Y82.9 Unspecified medical devices associated with adverse incidents; Z94.1 Heart transplant status
CPT/HCPCS: 36415; 80053; 82550; 83735; 83880; 85025

== ENCOUNTER → 2023-04-21 | Outpatient (CLI) | payer MEDICARE | END | disposition home or self-care (01) | LOC: LABWHC1 09:47 | PROVIDERS: ATTEND Internal Medicine | DX: I50.30 Unspecified diastolic (congestive) heart failure (principal); E78.2 Mixed hyperlipidemia; Z94.1 Heart transplant status | CPT/HCPCS: 36415 ==

== ENCOUNTER → 2023-07-31 | Outpatient (CLI) | payer MEDICARE ==
[2023-07-31 09:53] LABS: NT-Pro-B-Type Natriuretic Pept 964 pg/mL
[2023-07-31 16:38] LABS: Basophils # (A) 0.06 X 10*3/uL (0.00-0.10); Basophils % (A) 1.1 %; Eosinophils # (A) 0.22 X 10*3/uL (0.04-0.35); Eosinophils % (A) 4.2 %; HCT 41.7 % (37.2-46.3); HGB 13.3 d/dL (12.0-15.0); Lymphocytes # (A) 1.39 X 10*3/uL (0.90-5.00); Lymphocytes % (A) 26.5 %; MCH 28.5 pg (27.0-32.0); MCHC 31.9 d/dL (32.0-37.0); MCV 89.3 FL (80.0-97.0); Mean Platelet Volume 10.4 FL (9.5-12.2); Monocytes # (A) 0.57 X 10*3/uL (0.20-1.00); Monocytes % (A) 10.9 %; NRBC Per 100 WBC 0 X 10*3/uL (0.00-0.01); Neutrophils # (A) 2.98 X 10*3/uL (1.80-7.70); Neutrophils % (A) 56.9 %; Platelet Count 198 X 10*3/uL (140-440); RBC 4.67 X 10*6/uL (4.10-5.20); RDW 13.2 % (11.5-14.5); WBC 5.24 X 10*3/uL (4.50-10.00)
[2023-07-31 18:30] LABS: ALT 24 U/L (8-44); AST 24 U/L (13-35); Albumin 4.4 d/dL (3.8-4.9); Albumin/Globulin Ratio 1.69 Ratio (1.60-3.17); Alkaline Phosphatase 75 U/L (41-126); BUN/Creat Ratio 16.69 Ratio (12.00-20.00); Bilirubin, Conjugated <0.20 mg/dL (0.20-0.40); Bilirubin,Unconjugated >0.30 mg/dL (0.20-1.00); Blood Urea Nitrogen 21.7 mg/dL (9.0-27.0); Calcium 9.8 mg/dL (8.7-10.3); Carbon Dioxide 20.7 mmol/L (21.6-31.8); Chloride 105 mmol/L (96-109); Creatine Kinase 99 U/L (26-186); Globulin 2.6 d/dL (1.6-3.3); Glucose 96 mg/dL (70-110); Potassium 5.1 mmol/L (3.5-5.5); Sodium 141 mmol/L (135-145); Total Bilirubin 0.5 mg/dL (0.3-1.2)
== END | disposition home or self-care (01) ==
LOC: LABWHC1 08:28
PROVIDERS: ATTEND Internal Medicine
DX: E78.2 Mixed hyperlipidemia (principal); I50.30 Unspecified diastolic (congestive) heart failure; T86.20 Unspecified complication of heart transplant; T86.21 Heart transplant rejection; T86.22 Heart transplant failure; T86.23 Heart transplant infection; T86.290 Cardiac allograft vasculopathy; Y82.9 Unspecified medical devices associated with adverse incidents
CPT/HCPCS: 36415; 80053; 82248; 82550; 83880; 85025

== ENCOUNTER → 2023-09-22 | Outpatient (CLI) | payer MEDICARE ==
--- NOTE | 2023-09-22 11:52 | XR ---
EXAMINATION TYPE: XR ankle complete RT DATE OF EXAM: 09/22/2023 COMPARISON: NONE HISTORY: 57-year-old female S99.911A Injury right ankle, posterior pain TECHNIQUE: 3 views FINDINGS: Nondisplaced Nguyễn A fracture distal fibula. Unable to exclude a subtle nondisplaced fractu re of the posterior malleolus. Moderate tibiotalar joint effusion. No medial clear space widening. Ta lar dome appears intact. Prominent lateral and anterior soft tissue swelling. Subtalar joint appears aligned. IMPRESSION: 1. Nondisplaced Nguyễn A fracture lateral malleolus. 2. Unable to exclude a subtle nondisplaced fracture of the posterior malleolus. 3. Associated soft tissue swelling and joint effusion.
== END | disposition home or self-care (01) ==
LOC: RADXRMAIN 10:21
PROVIDERS: ATTEND Internal Medicine
DX: S82.64XD Nondisplaced fracture of lateral malleolus of right fibula, subsequent encounter for closed fracture with routine healing (principal); S99.911A Unspecified injury of right ankle, initial encounter; M25.471 Effusion, right ankle; M79.89 Other specified soft tissue disorders

== ENCOUNTER → 2023-12-17 | Outpatient (CLI) | payer MEDICARE ==
[2023-12-17 17:31] LABS: Basophils # (A) 0.04 X 10*3/uL (0.00-0.10); Basophils % (A) 0.7 %; Eosinophils # (A) 0.24 X 10*3/uL (0.04-0.35); Eosinophils % (A) 4.2 %; HCT 41.6 % (37.2-46.3); HGB 13.5 g/dL (12.0-15.0); Lymphocytes % (A) 30.1 %; MCH 28.4 pg (27.0-32.0); MCHC 32.5 g/dL (32.0-37.0); MCV 87.4 FL (80.0-97.0); Mean Platelet Volume 10.2 FL (9.5-12.2); Monocytes % (A) 12.4 %; NRBC Per 100 WBC 0 X 10*3/uL (0.00-0.01); Neutrophils # (A) 2.95 X 10*3/uL (1.80-7.70); Neutrophils % (A) 52.2 %; Platelet Count 215 X 10*3/uL (140-440); RBC 4.76 X 10*6/uL (4.10-5.20); RDW 12.7 % (11.5-14.5); WBC 5.65 X 10*3/uL (4.50-10.00)
[2023-12-17 22:43] LABS: ALT 33 U/L (8-44); AST 23 U/L (13-35); Albumin 4.5 g/dL (3.8-4.9); Albumin/Globulin Ratio 1.73 Ratio (1.60-3.17); Alkaline Phosphatase 78 U/L (41-126); BUN/Creat Ratio 17.62 Ratio (12.00-20.00); Blood Urea Nitrogen 22.9 mg/dL (9.0-27.0); Carbon Dioxide 23.3 mmol/L (21.6-31.8); Chloride 104 mmol/L (96-109); Creatine Kinase 66 U/L (26-186); Globulin 2.6 g/dL (1.6-3.3); Glucose 101 mg/dL (70-110); Magnesium 1.8 mg/dL (1.5-2.4); Sodium 139 mmol/L (135-145); Total Bilirubin 0.5 mg/dL (0.3-1.2); Total Protein 7.1 g/dL (6.2-8.2)
[2023-12-17 22:46] LABS: NT-Pro-B-Type Natriuretic Pept 387 pg/mL (0-125)
== END | disposition home or self-care (01) ==
LOC: LABWHC1 09:02
PROVIDERS: ATTEND Internal Medicine
DX: T86.20 Unspecified complication of heart transplant (principal); T86.22 Heart transplant failure; T86.23 Heart transplant infection; T86.290 Cardiac allograft vasculopathy; E78.2 Mixed hyperlipidemia; T86.21 Heart transplant rejection; I50.30 Unspecified diastolic (congestive) heart failure
CPT/HCPCS: 36415; 80053; 82550; 83735; 83880; 85025

== ENCOUNTER → 2024-03-31 | Outpatient (CLI) | payer MEDICARE ==
[2024-03-31 14:42] LABS: Basophils # (A) 0.04 X 10*3/uL (0.00-0.10); Basophils % (A) 0.8 %; Eosinophils # (A) 0.21 X 10*3/uL (0.04-0.35); Eosinophils % (A) 4.4 %; HCT 41.2 % (37.2-46.3); HGB 13.1 g/dL (12.0-15.0); Lymphocytes # (A) 1.56 X 10*3/uL (0.90-5.00); Lymphocytes % (A) 32.4 %; MCH 28.1 pg (27.0-32.0); MCHC 31.8 g/dL (32.0-37.0); MCV 88.2 FL (80.0-97.0); Mean Platelet Volume 10.9 FL (9.5-12.2); Monocytes # (A) 0.59 X 10*3/uL (0.20-1.00); Monocytes % (A) 12.2 %; NRBC Per 100 WBC 0 X 10*3/uL (0.00-0.01); Neutrophils % (A) 49.8 %; Platelet Count 195 X 10*3/uL (140-440); RBC 4.67 X 10*6/uL (4.10-5.20); RDW 12.5 % (11.5-14.5); WBC 4.82 X 10*3/uL (4.50-10.00)
[2024-03-31 15:52] LABS: NT-Pro-B-Type Natriuretic Pept 650 pg/mL (0-125)
[2024-03-31 15:55] LABS: BUN/Creat Ratio 19.75 Ratio (12.00-20.00); Blood Urea Nitrogen 23.7 mg/dL (9.0-27.0); Calcium 9.4 mg/dL (8.7-10.3); Carbon Dioxide 19.8 mmol/L (21.6-31.8); Chloride 106 mmol/L (96-109); Creatine Kinase 81 U/L (26-186); Glucose 109 mg/dL (70-110); Magnesium 1.7 mg/dL (1.5-2.4); Potassium 4.6 mmol/L (3.5-5.5); Sodium 139 mmol/L (135-145)
== END | disposition home or self-care (01) ==
LOC: LABWHC1 10:24
PROVIDERS: ATTEND Internal Medicine
DX: I50.30 Unspecified diastolic (congestive) heart failure (principal); E78.2 Mixed hyperlipidemia; T86.21 Heart transplant rejection; T86.22 Heart transplant failure; T86.23 Heart transplant infection; T86.290 Cardiac allograft vasculopathy
CPT/HCPCS: 36415; 80048; 82550; 83735; 83880; 85025

== ENCOUNTER → 2024-06-07 | Outpatient (CLI) | payer MEDICARE ==
--- NOTE | 2024-06-07 12:27 | XR ---
EXAMINATION TYPE: XR shoulder complete 3 views RT DATE OF EXAM: 06/07/2024 Comparison: None Clinical History: 58-year-old female M25.511 pain R shoulder Findings: Mild degenerative spurring at the AC joint. Subacromial space is preserved. Small delineation of the greater tuberosity. Partially visualized median sternotomy wires. No acute fracture, subluxation, dis location Impression: Mild AC joint OA. No acute osseous abnormality seen.
== END | disposition home or self-care (01) ==
LOC: RADXRMAIN 12:10
PROVIDERS: ATTEND Internal Medicine
DX: M19.011 Primary osteoarthritis, right shoulder (principal)

== ENCOUNTER → 2024-08-19 | Outpatient (CLI) | payer MEDICARE ==
--- NOTE | 2024-08-21 18:09 | BD ---
EXAMINATION TYPE: Axial Bone Density DATE OF EXAM: 08/19/2024 CLINICAL HISTORY: 58 years old Female. ICD-10 CODE: [id number] OSTEO RT HIP , Additional History: Height: 64 Weight: 226 FRAX RISK QUESTIONS: Family History (Parent hip fracture): yes History of Fracture in Adulthood: yes Secondary Osteoporosis: RISK FACTORS HISTORY OF: MEDICATIONS: EXAM MEASUREMENTS: Bone mineral densitometry was performed using the [email or web address] System. Bone mineral density as measured about the Lumbar spine is: ----- L1-L4(G/cm2): 1.096 T Score Values are as follows: ----- L1: -1.8 ----- L2: -1.2 ----- L3: -0.4 ----- L4: 0.2 ----- L1-L4: -0.7 Z Score Values are as follows: ----- L1: -1.9 ----- L2: -1.3 ----- L3: -0.5 ----- L4: 0.1 ----- L1-L4: -0.8 Bone mineral density has: Decreased -6.3% since study of: 12-25-20 Bone mineral density about the R hip (g/cm2): 0.971 Bone mineral density about the L hip (g/cm2): 1.045 T Score values are as follows: -----R Neck: -1.2 -----L Neck: -1.4 -----R Total: -0.3 -----L Total: 0.3 Z Score values are as follows: -----R Neck: -0.8 -----L Neck: -0.9 -----R Total: -0.3 -----L Total: 0.3 Bone mineral density has: Decreased -2.2% since study of: 12-25-20 FRAX%s: The graph provided illustrates a 22.2% chance for a major osteoporotic fx and a 0.9% chance f or the hips probability for fx in 10 years time. IMPRESSION: Osteopenia (T Score between -2.5 and -1). There is slightly increased risk of fracture and the patient may be considered for treatment. Re-Screen 2-5 years. NOTE: T-SCORE=SD OF THE YOUNG ADULT MEAN. [facility], , 08/21/2024 6:06 PM
--- NOTE | 2024-08-23 09:27 | MM ---
Reason for Exam: Screening (asymptomatic). Last mammogram was performed 3 year(s) and 8 month(s) ago. Patient History: Menarche at age 16. First Full-Term at age 23. Postmenopausal. 05/31/2014, Benign Core Biopsy on the right side. Risk Values: Lamar 5 year model risk: 1.3%. NCI Lifetime model risk: 7.4%. Prior Study Comparison: 11/18/2016 Bilateral Screening Mammogram, [facility]. 12/23/2017 Bilateral Screening Mammogram, [facility]. 12/25/2020 Bilateral Screening Mammogram, [facility]. Tissue Density: There are scattered areas of fibroglandular density. Findings: Analyzed By CAD. Right breast: There is no suspicious group of microcalcifications or new suspicious mass. Benign-appearing calcifications right breast. Left breast: There is no suspicious group of microcalcifications or new suspicious mass. Benign-appearing calcifications left breast. Overall Assessment: Negative, BI-RAD 1 Management: Screening Mammogram of both breasts in [address] [facility] will attempt to contact patient to return for supplemental views and ultrasound if indicated. Patient should continue monthly self-breast exams. A clinical breast exam by your physician is recommended on an annual basis. This exam should not preclude additional follow-up of suspicious palpable abnormalities. Note on Lamar scores and lifetime risk: 1. A Lamar score greater than 3% is considered moderate risk. If this is the case, consider specialist referral to assess eligibility for a risk reducing agent. 2. If overall lifetime risk for the development of breast cancer is 20% or higher, the patient may qualify for future screening with alternating mammogram and breast MRI. [facility], , 08/23/2024 9:24 AM. Electronically signed and approved by: Girma Peng DO
== END | disposition home or self-care (01) ==
LOC: RADMAMWWP 09:54
PROVIDERS: ATTEND Internal Medicine
DX: Z12.31 Encounter for screening mammogram for malignant neoplasm of breast (principal); R92.323 Mammographic fibroglandular density, bilateral breasts; M85.89 Other specified disorders of bone density and structure, multiple sites; Z78.0 Asymptomatic menopausal state
CPT/HCPCS: 77063; 77067; 77080

== ENCOUNTER → 2024-11-08 | Outpatient (CLI) | payer MEDICARE ==
[2024-11-08 15:10] LABS: Basophils # (A) 0.06 X 10*3/uL (0.00-0.10); Eosinophils # (A) 0.22 X 10*3/uL (0.04-0.35); Eosinophils % (A) 3.5 %; HCT 41.9 % (37.2-46.3); HGB 13.4 g/dL (12.0-15.0); Lymphocytes # (A) 1.44 X 10*3/uL (0.90-5.00); Lymphocytes % (A) 23.2 %; MCH 28.3 pg (27.0-32.0); MCV 88.4 FL (80.0-97.0); Mean Platelet Volume 10.3 FL (9.5-12.2); Monocytes # (A) 0.64 X 10*3/uL (0.20-1.00); Monocytes % (A) 10.3 %; NRBC Per 100 WBC 0 X 10*3/uL (0.00-0.01); Neutrophils # (A) 3.84 X 10*3/uL (1.80-7.70); Neutrophils % (A) 61.7 %; Platelet Count 225 X 10*3/uL (140-440); RBC 4.74 X 10*6/uL (4.10-5.20); RDW 12.6 % (11.5-14.5); WBC 6.22 X 10*3/uL (4.50-10.00)
[2024-11-08 16:04] LABS: ALT 33 U/L (8-44); AST 24 U/L (13-35); Albumin 4.3 g/dL (3.8-4.9); Albumin/Globulin Ratio 1.54 Ratio (1.60-3.17); Alkaline Phosphatase 74 U/L (41-126); BUN/Creat Ratio 18.25 Ratio (12.00-20.00); Blood Urea Nitrogen 21.9 mg/dL (9.0-27.0); Calcium 9.5 mg/dL (8.7-10.3); Carbon Dioxide 21.1 mmol/L (21.6-31.8); Chloride 106 mmol/L (96-109); Chol/HDL Ratio 3.02 Ratio; Creatine Kinase 66 U/L (26-186); Globulin 2.8 g/dL (1.6-3.3); Glucose 114 mg/dL (70-110); LDL Cholesterol,Calculated 84.3 mg/dL (0.0-131.0); Magnesium 1.7 mg/dL (1.5-2.4); Potassium 4.9 mmol/L (3.5-5.5); Sodium 138 mmol/L (135-145); Total Bilirubin 0.5 mg/dL (0.3-1.2); Total Protein 7.1 g/dL (6.2-8.2); Uric Acid 5.7 mg/dL (2.9-7.7); VLDL Calculation 15.42 mg/dL (5.00-40.00)
[2024-11-08 16:20] LABS: NT-Pro-B-Type Natriuretic Pept 1310 pg/mL (0-125)
== END | disposition home or self-care (01) ==
LOC: LABWHC1 09:06
PROVIDERS: ATTEND Internal Medicine
DX: I50.30 Unspecified diastolic (congestive) heart failure (principal); E78.2 Mixed hyperlipidemia; T86.20 Unspecified complication of heart transplant; T86.21 Heart transplant rejection; T86.22 Heart transplant failure; T86.23 Heart transplant infection; T86.290 Cardiac allograft vasculopathy; Z94.1 Heart transplant status
CPT/HCPCS: 36415; 80053; 80061; 82550; 83735; 83880; 84550; 85025

== ENCOUNTER → 2025-01-25 | Outpatient (CLI) | payer MEDICARE ==
--- NOTE | 2025-01-25 16:08 | XR ---
EXAMINATION TYPE: XR chest 2V DATE OF EXAM: 01/25/2025 3:57 PM COMPARISON: Chest radiographs from 03/25/2023 TECHNIQUE: XR chest 2V Frontal and lateral views of the chest. CLINICAL INDICATION:Female, 59 years old with history of R09.89; FINDINGS: Lungs/Pleura: There is no evidence of pleural effusion, focal consolidation, or pneumothorax. Pulmonary vascularity: Unremarkable. Heart/mediastinum: Cardiomediastinal silhouette is enlarged and stable. Musculoskeletal: No acute osseous pathology. Midline sternotomy wires and surgical clips project over the mediastinum. IMPRESSION: Chronic changes without evidence for acute process. [facility], , 01/25/2025 4:06 PM
== END | disposition home or self-care (01) ==
LOC: RADXRMAIN 15:45
PROVIDERS: ATTEND Internal Medicine
DX: R09.89 Other specified symptoms and signs involving the circulatory and respiratory systems (principal)
CPT/HCPCS: 71046

== ENCOUNTER → 2025-03-25 | Outpatient (CLI) | payer MEDICARE ==
[2025-03-25 15:06] LABS: Basophils # (A) 0.06 X 10*3/uL (0.00-0.10); Eosinophils % (A) 3.5 %; HCT 38.6 % (37.2-46.3); HGB 12.5 g/dL (12.0-15.0); Lymphocytes # (A) 1.66 X 10*3/uL (0.90-5.00); MCH 28.7 pg (27.0-32.0); MCHC 32.4 g/dL (32.0-37.0); MCV 88.5 FL (80.0-97.0); Monocytes # (A) 0.68 X 10*3/uL (0.20-1.00); Monocytes % (A) 11.9 %; NRBC Per 100 WBC 0 X 10*3/uL (0.00-0.01); Neutrophils # (A) 3.09 X 10*3/uL (1.80-7.70); Neutrophils % (A) 54.1 %; Platelet Count 191 X 10*3/uL (140-440); RBC 4.36 X 10*6/uL (4.10-5.20); RDW 12.8 % (11.5-14.5); WBC 5.72 X 10*3/uL (4.50-10.00)
[2025-03-25 15:21] LABS: ALT 25 U/L (8-44); AST 24 U/L (13-35); Albumin 4.3 g/dL (3.8-4.9); Albumin/Globulin Ratio 1.65 Ratio (1.60-3.17); Alkaline Phosphatase 65 U/L (41-126); Blood Urea Nitrogen 21.6 mg/dL (9.0-27.0); Calcium 9.3 mg/dL (8.7-10.3); Carbon Dioxide 20.6 mmol/L (21.6-31.8); Chloride 105 mmol/L (96-109); Creatine Kinase 68 U/L (26-186); Globulin 2.6 g/dL (1.6-3.3); Glucose 117 mg/dL (70-110); Magnesium 1.6 mg/dL (1.5-2.4); Potassium 4.8 mmol/L (3.5-5.5); Sodium 139 mmol/L (135-145); Total Bilirubin 0.5 mg/dL (0.3-1.2); Total Protein 6.9 g/dL (6.2-8.2)
[2025-03-25 15:32] LABS: NT-Pro-B-Type Natriuretic Pept 866 pg/mL (0-125)
== END | disposition home or self-care (01) ==
LOC: LABWHC1 08:42
PROVIDERS: ATTEND Internal Medicine
DX: I50.30 Unspecified diastolic (congestive) heart failure (principal); E78.2 Mixed hyperlipidemia; T86.290 Cardiac allograft vasculopathy; Z94.1 Heart transplant status
CPT/HCPCS: 36415; 80053; 82550; 83735; 83880; 85025

== ENCOUNTER → 2025-05-04 | Outpatient (CLI) | payer MEDICARE ==
--- NOTE | 2025-05-04 14:29 | XR ---
EXAMINATION TYPE: XR chest 2V DATE OF EXAM: 05/04/2025 12:25 PM COMPARISON: 01/25/2025 CLINICAL INDICATION: Female, 59 years old with history of R05.8 Productive Cough, TECHNIQUE: XR chest 2V view(s) obtained. FINDINGS: The heart size is normal. The pulmonary vasculature is normal. The lungs are clear. Sternotomy wires are in the midline IMPRESSION: 1. No acute pulmonary process. [facility], Workstation: [email or web address], 05/04/2025 2:27 PM
== END | disposition home or self-care (01) ==
LOC: RADXRMAIN 11:59
PROVIDERS: ATTEND Internal Medicine
DX: R05.8 Other specified cough (principal)
CPT/HCPCS: 71046